=== PATIENT | female | born 1950 | race African-American/Black ===

== ENCOUNTER 2016-04-15 19:01 | Inpatient (IN) | payer OTHER ==
[~2016-04-15] VITALS: Ht 160 cm; Wt 91.2 kg
--- NOTE | ~2016-04-15 | HC ---
[facility] [place] [address] CONSULTATION Name: ALBERTO BARBOZA Room #: 241-P ADM IN M.R.#: [id number] Admission: 04/15/16 Attend Phys: Chema rAango Discharge: Date of : 54 Report #: [id number] THIS REPORT FOR: //name// CC: Ezio Arango Apolonia Nunesg DATE OF ADMISSION: 04/15/2016. DATE OF CONSULTATION: 04/16/2016 REASON FOR CONSULTATION: Elevated creatinine. HISTORY OF PRESENT ILLNESS: This is a 66-year-old female who presented to the Emergency Room last evening with bilateral lower extremity pain, worse on the left than the right. She came from a local rehab center. She tells me she was in [facility] for about 2 weeks and was just discharged about 4 days ago to that Rehab Center. While at [facility], she did have evaluation for her leg pain. She does not recall that anything was done. She is able to tell me that she was put on some medication and she ended up getting overly somnolent with the medication and took it couple of days to come out from underneath that medication. She stated it was blamed on her renal function and why that had occurred. She did not recall the name of the medication, but I suspect that it was a high dose gabapentin, although it could have been some Baclofen. She tells me she has had diabetes mellitus dating back 25 or 30 years. She also has longstanding hypertension. She says she has been seen previously by nephrologists at [facility]. She has been told she does have chronic kidney problems. She remembers being told of proteinuria for many years. She does not recall baseline creatinine levels or amount of GFR decline that she has had. She has never required dialysis. Overnight, she went to interventional radiology. CO2 arteriogram was performed showing chronic arterial disease of both lower extremities. She has been undergoing a TPA infusion overnight. Legs are still cold and painful. She is due for a followup arteriogram this morning. PAST MEDICAL HISTORY: Longstanding diabetes mellitus again dating back 25 or 30 years. With this she has some peripheral neuropathy, presumed diabetic nephropathy. She has longstanding hypertension. She has a chronic kidney disease as noted above, but again we are uncertain of the extent. She has coronary artery disease. She had a 5-vessel coronary artery bypass graft surgery in 1998. She is unaware of any percutaneous intervention on that. She has documented lower extremity arterial disease. She has a long scar in her right arm extending from the forearm all the way up the upper arm over the distribution of the cephalic vein. She thinks that the vein was taken for a bypass, although she also has scars on her left leg from what appears to be vein harvest for her coronary bypass graft surgery. I am uncertain what this right [facility] [address] [place] [address] CONSULTATION Name: ALBERTO BARBOZA Room #: 241-P ADM IN M.R.#: [id number] Admission: 04/15/16 Attend Phys: Chema Arango Discharge: Date of : 54 Report #: [id number] arm scar is. She has also had laparoscopic cholecystectomy. MEDICATIONS: From [facility], amlodipine 5 mg daily, aspirin 81 mg daily, vitamin D 1000 units daily, Pletal 50 mg b.i.d., cyproheptadine 4 mg daily, Zetia 10 mg daily, Humalog 10 units with meals, isosorbide dinitrate daily, I believe that is 60 mg, Lantus 25 units at bedtime, couple of eyedrops, metoprolol dose unknown, pantoprazole 40 mg daily, Crestor 10 mg daily, Ultram 50 mg p.r.n., Plavix 75 mg daily. ALLERGIES: No known medical allergies. FAMILY HISTORY: Negative for renal disease of which she can tell me at this time. SOCIAL HISTORY: The patient is a , has been in [facility]. She has couple of sisters here in town. REVIEW OF SYSTEMS: Currently, denies chest pain or palpitations, dyspnea, cough. She has had mild abdominal discomfort. She denies nausea or vomiting. She has been incontinent of urine. She reports no recent visual or hearing changes. She was somewhat confused and described as giving a poor history last night, but this morning she is awake and oriented. Main problem has been her lower extremity pain, which is severe and very disabling. PHYSICAL EXAMINATION: GENERAL: A 66-year-old female who looks rather elderly. She is awake and knows she is at [facility]. VITAL SIGNS: Blood pressure 155/67, heart rate 77, respiratory rate 16, temperature 97.4, oxygen saturation 99%. HEENT: Shows pupils are equal and reactive. Sclerae nonicteric. Oral mucosa is somewhat dry. NECK: Veins are not distended. Neck is supple. She has a right IJ infusion catheter in place. CHEST: Clear bilaterally. CARDIOVASCULAR: Heart has a regular rate and rhythm with somewhat distant heart tones. ABDOMEN: Mildly distended. Bowel sounds are present. It is soft. She has minimal tenderness, no point tenderness, guarding or rebound, no organomegaly or masses are palpable. EXTREMITIES: Upper extremities showed no edema. She has very lengthy scar in her right forearm and upper arm. Legs are cold to the touch from the thigh distally. Both are very tender to the touch. ABS and pedal pulses. LABORATORY DATA: Sodium 136, potassium 4.2, chloride 102, bicarbonate 23, BUN , creatinine 3.4, glucose 215, calcium 8.9, AST 60, ALT 58, total protein 7.2, albumin 1.2. White count 15.3 down from 20 on admission, hemoglobin 10.4, [facility] [address] [place] [address] CONSULTATION Name: ALBERTO BARBOZA Room #: 241-P [facility] IN M.R.#: [id number] Admission: 04/15/16 Attend Phys: Chema Arango Discharge: Date of : 54 Report #: [id number] hematocrit 31.5, platelets 492,000. Differential on the white count 88 neutrophils, 6 lymphs, 6 monocytes. Urinalysis from the Emergency Room specific gravity of 1.020, pH 7.0, 3+ protein, 2+ glucose, 2+ blood with 6-15 white cells, 3-10 red cells. ASSESSMENT: 1. Elevated creatinine consistent with chronic kidney disease stage IV, possibly stage V. She has longstanding diabetes, hypertension, and proteinuria. We will get a renal ultrasound, but I expect her kidneys, we will have some atrophic component. She still has substantial proteinuria evidenced by the protein on dipstick urine, but also by her very low serum albumin. The fact that she is known of proteinuria for many years and has seen a drafting engineer before again supports that this is chronic. We will certainly follow along, but I do not think there is an acute component to this. Certainly with that severe of a creatinine elevation, she has very small residual. I mentioned briefly dialysis today, although I do not think she needs it at this time. It may be, consideration down the line. 2. Atherosclerotic peripheral vascular disease with what was described in the radiology notes as chronic arterial occlusions. TPA infusion is ongoing. She is due for a repeat arteriogram, but based upon the appearance of her legs today including the coldness and the tenderness, I doubt that we will see dramatic improved with the TPA. This certainly looks like more chronic arterial changes. 3. Diabetes mellitus dating back 25 or 30 years, very longstanding, very severe. 4. Hypertension, recently she only on amlodipine. Blood pressure, adequate control at this time. 5. Atherosclerotic coronary artery disease with remote coronary artery bypass graft surgery. She is asymptomatic from that standpoint. 6. Anemia, likely chronic. As we go forward, we will check iron studies and erythropoietin levels. 7. Leukocytosis on admission. Better this morning. Her legs do not look infected, although certainly they are likely very ischemic. PLAN: 1. Put her on a small amount of IV fluids, normal saline. 2. Check proteinuria amounts. 3. We will try to get records from [facility]. They have already been requested, so we can see what her baseline creatinine level runs. 4. I will get a renal ultrasound to assess renal size and anatomy. 5. Repeat labs. 6. We will follow along in the care of this pleasant, but chronically ill patient. <ELECTRONICALLY SIGNED> By: José Rawls MD 04/16/16 1234 0852 1110 José Rawls MD /nt
--- NOTE | ~2016-04-15 | HC ---
[facility] [place] [address] [place] [address] CONSULTATION Name: ALBERTO BARBOZA Room #: 439-P [facility] IN M.R.#: [id number] Admission: 04/15/16 Attend Phys: Chema Arango Discharge: 04/22/16 Date of : 54 Report #: [id number] THIS REPORT FOR: //name// CC: Ezio Arango Apolonia Nunesg DATE OF SERVICE: 04/16/2016 We were asked by Dr. Ghosh to see the patient. The patient is a 66-year-old with arterial occlusive disease, left lower extremity. The patient was admitted through the Emergency Department as a transfer from the long term with cold pulseless left lower extremity. The patient had previously been an inpatient at [facility] in fact discharged only last week, because "they could not fix my leg". We have records from [facility] that shows essentially little to no flow in the distal left lower extremity from 04/01, so this indicated that the admitting problem is an acute discovery of a chronic problem. The patient has a history of pain in the left lower extremity with 5 to 6 months with increasing pain and swelling and it has become quite cold to touch. [facility] doctors were concerned about venous disease even in the face of dismal lower extremity arterial exam. PAST MEDICAL HISTORY: Significant for diabetes, chronic renal disease. The patient had coronary artery bypass by myself at [facility] years ago. MEDICATION AT HOME: Includes acetaminophen, amlodipine, aspirin, vitamin D, cilostazol, cyproheptadine, docusate, ezetimibe, insulin, isosorbide, latanoprost eye drops, lidocaine patch, methyl salicylate, metoprolol, polyethylene glycol, nitroglycerin, clopidogrel, pantoprazole, rosuvastatin, tramadol. ALLERGIES: None known. SOCIAL HISTORY: Former smoker. As mentioned, currently a resident of the long term. REVIEW OF SYSTEMS: CONSTITUTIONAL: No fever or chills. EYES: Wears glasses. No eye pain. No vision changes. HEENT: No rhinorrhea or sore throat. RESPIRATORY: No cough, no shortness of breath. CARDIOVASCULAR: No chest pain or palpitations. [facility] [address] [place] [address] CONSULTATION Name: ALBERTO BARBOZA Room #: 439-P DIS IN M.R.#: [id number] Admission: 04/15/16 Attend Phys: Chema Arango Discharge: 04/22/16 Date of : 54 Report #: [id number] GASTROINTESTINAL: No nausea, vomiting, diarrhea. GENITOURINARY: No dysuria, no blood. MUSCULOSKELETAL: Pain in the left lower extremity as mentioned. SKIN: No rash or infection. NEUROLOGIC: Sensory changes in the distal left lower extremity. Decreased motion in left lower extremity. ENDOCRINE: No hot or cold intolerance. Treated for diabetes. LYMPHATICS AND HEMATOLOGIC: No easy bruising. No anemia. PHYSICAL EXAMINATION: VITAL SIGNS: Blood pressure 155/67, heart rate 77, respiratory rate 16, temperature 36.3, O2 sat 99%. GENERAL: The patient is pleasant woman, who looks older than stated age. HEENT: Normocephalic, gaze conjugate. Pupils equal, round. No icterus, no arcus. NECK: No lymphadenopathy, no bruit. CHEST: Reveals fine crackles at the bases. HEART: Rhythm regular. No murmurs. ABDOMEN: Soft, no mass, no tenderness. SKIN: In general normal color and turgor, but skin in distal left lower extremity is dry and cold. MUSCULOSKELETAL: No bone or joint dyssymmetry or deformity. NEUROLOGIC: No motion or sensation left foot. VASCULAR: No left popliteal, dorsalis pedis or posterior tibial pulses or Doppler signals and muscle in the left calf is edematous and extremity itself is dark and cadaveric. IMPRESSION: The patient has worsening of already existing left lower extremity arterial occlusive disease. Limb salvage is not possible at this point. We note that arteriography was done earlier with thrombolytic treatment. The left deep femoral has clot and distally the left superficial femoral is totally occluded and there is really no distant runoff. No prospect for revascularization and even if this were the case would be detrimental as the extremity itself is more defying. I agree that above knee amputation would be the single most likely procedure to be successful in this patient. Thank you for consult. <ELECTRONICALLY SIGNED> By: Chicho Farley MD 04/28/16 1224 0853 1035 Chicho Farley MD /nt
--- NOTE | ~2016-04-15 | O ---
[facility] [place] [address] [place] [address] OPERATIVE REPORT Name: ALBERTO BARBOZA Room #: 439-P ADM IN M.R.#: [id number] Admission: 04/15/16 Attend Phys: Chema Arango Discharge: Date of : 54 Report #: [id number] THIS REPORT FOR: //name// CC: Ezio Arango Apolonia Cyr DATE OF SERVICE: 04/18/2016 PREOPERATIVE DIAGNOSIS: Dysvascular left lower extremity. POSTOPERATIVE DIAGNOSIS: Dysvascular left lower extremity. PROCEDURE: Left above knee amputation. SURGEON: Nestor Leal MD. BODS DEVELOPER: Amber Cleary PA-C. ANESTHESIA: LMA. TOURNIQUET TIME: 45 minutes. ESTIMATED BLOOD LOSS: 50 mL. COMPLICATIONS: None. SPECIMENS: The left lower extremity was sent to pathology. CONDITION UPON LEAVING THE OPERATING ROOM: Stable. INDICATIONS FOR PROCEDURE: The patient is a 66-year-old female who has severe left leg peripheral vascular disease. She presented to our hospital with a cold and painful limb. Attempts at revascularization were made as well as thrombolysis, which were unsuccessful. It was determined that revascularization was not possible and was in need of above-knee amputation. DESCRIPTION OF PROCEDURE: Risks, benefits, alternatives, complications were discussed in detail with the patient including but not limited to risk of anesthesia, risk of damage to nerves, arteries, blood vessels, risk for infection, bleeding, risk for continued leg pain, wound complications and need for reoperation. Informed consent was obtained from the patient. Left leg was appropriately marked in preoperative holding area. She was brought to the operating room and placed in supine position on operating room table. LMA anesthesia was induced without complication. Tourniquet was placed on the left thigh. Left lower extremity was prepped and draped in normal sterile fashion. [address] [address] OPERATIVE REPORT Name: ALBERTO BARBOZA Room #: 439-P [facility] IN M.R.#: [id number] Admission: 04/15/16 Attend Phys: Chema Arango Discharge: Date of : 54 Report #: [id number] Timeout was performed properly identifying the patient and procedure as well as the instrumentation. All in the operating room were in agreement. Left lower extremity was elevated, tourniquet was inflated, tourniquet time was 45 minutes. A fishmouth incision was then drawn on the skin and incision was made with a 10 blade through the skin. Dissection was taken down using Bovie cautery cutting through the anterior musculature. The vessels were tied off and coagulated as they were encountered. An oscillating saw was used to make a bone cut proximal to the level of the skin and muscular incision. The anterior portion of the bone was then beveled. Sciatic nerve was then dissected and cut sharply and allowed to retract to avoid neuroma formation. The amputation was completed with Bovie cautery. After this, the musculature had to be debulked in order to allow for closure of the wound. The tourniquet was deflated. Hemostasis was obtained with Bovie cautery. The muscle fascia was then tied over the stump of the femur and the skin with 2-0 Vicryl. The fascia was closed with 0 Vicryl, skin was closed with 2-0 Vicryl and skin scar. Soft dressing of Adaptic, 4 x 4, ABD, Kerlix and Mitchell wrap were applied. The patient tolerated this procedure well and went to recovery room under care of anesthesia postoperatively. <ELECTRONICALLY SIGNED> By: Nestor Leal MD 04/21/16 0939 1432 1615 Nestor Leal MD /nt
--- NOTE | ~2016-04-15 | HC ---
[facility] [address] [address] CONSULTATION Name: ALBERTO BARBOZA Room #: 439-P ADM IN M.R.#: [id number] Admission: 04/15/16 Attend Phys: Chema Arango Discharge: Date of : 54 Report #: [id number] THIS REPORT FOR: //name// CC: Ezio Arango Apolonia Cyr DATE OF SERVICE: 04/18/2016 REASON FOR CONSULTATION: Dysvascular left lower extremity. HISTORY OF PRESENT ILLNESS: The patient is a 66-year-old female who was admitted secondary to increasing pain and swelling in her left leg. This has become cold to touch. She has been worked up for this and has had several vascular studies as well as cardiovascular input. Her pain has become increasingly worse. PAST MEDICAL HISTORY: Significant for insulin-dependent diabetes, coronary artery disease, hypertension, chronic kidney disease. CURRENT MEDICATIONS: Have been reviewed and are on the chart. SOCIAL HISTORY: She does not smoke, drink or use illicit drugs. PHYSICAL EXAMINATION: GENERAL: This is a frail-appearing female in no acute distress. She is alert and oriented. EXTREMITIES: Examination of left lower extremity shows her to have a very cold foot compared to the right side. She has global tenderness to palpation in her calf, ankle and foot. She has no palpable pulses in her left lower extremity. She has significant decreased sensation to light touch in her foot and toes. IMAGING: Reports show an attempted thrombolysis of her left lower extremity, which was unsuccessful. She has thrombosis of her superficial femoral artery, popliteal artery and intercostal arteries. Her imaging also shows a nonviable foot and suggests that successful revascularization is not likely. LABORATORY DATA: Show a white count of 16.6, hemoglobin 9.9, platelet of 469. ASSESSMENT: Less dysvascular lower extremity. PLAN: Discussed with the patient options today. At this point, it appears the only treatment option is for an above-knee amputation. I have discussed this with Dr. Farley and he is in agreement with this. We will plan to do this this afternoon. She is understanding and wished to proceed. [address] [place] [address] CONSULTATION Name: ALBERTO BARBOZA Room #: 439-P ADM IN M.R.#: [id number] Admission: 04/15/16 Attend Phys: Chema Arango Discharge: Date of : 54 Report #: [id number] Thank you for allowing us to participate in the care of the patient. <ELECTRONICALLY SIGNED> By: Nestor Leal MD 04/18/16 1255 0954 1147 Nestor Leal MD /nt
--- NOTE | ~2016-04-15 | S ---
[facility] [place] [address] [place] [address] SURGICAL PATH RPT PROCEDURE Name: TYRA BARBOZA Room #: 439-P ADM IN M.R.#: [id number] Admission: 04/15/16 Date of : 54 Discharge: Report #: [id number] Path Case #: [id number] PATHOLOGY REPORT COLLECTION DATE: 04/18/2016 RECEIVED DATE: 04/18/2016 SUBMITTING PHYS: Dr. Nestor Leal OTHER PHYS: Dr. Chema Ghosh SPECIMEN(S) RECEIVED: A.Left above the knee amputated leg * * * * * * * * * * * * FINAL DIAGNOSIS: Leg, left, above knee amputation: - Ischemic skin. - Anterior tibial vessels and posterior tibial vessels showing complete luminal occlusion by thrombi and atherosclerosis. - Popliteal vasculature showing marked luminal narrowing by calcific atherosclerosis. - Skin margin viable and unremarkable. - Bone margin grossly viable. (IUV:all; d/t: 04/22/2016) PATHOLOGIST: Aparna Hatch M.D. REPORT ELECTRONICALLY SIGNED BY: Aparna Hatch M.D. DATE/TIME: 04/22/2016 15:51 * * * * * * * * * * * * GROSS PATHOLOGY: The specimen is received fresh in a red biohazard bag and labeled Tyra Barboza and left above knee amputated leg." Received is a left upper extremity specimen amputated through the femur with a smooth resection margin. The specimen measures 25.5 cm from heel to toe, 46.5 cm from heel to soft tissue resection margin, and 54.5 cm from heel to femoral bone resection margin. The skin, soft tissue, and bone resection margins are grossly viable and unremarkable. Located at the skin, soft tissue, and bone resection margin is a metallic, tubular, and coiled surgical component, suggestive of a possible stent, measuring greater than 15.0 cm in length and 0.5 cm in diameter. The possible stent extends to and grossly abuts the popliteal and posterior tibial vessels. A digital image is taken. The skin is dominguez-brown, dusky, dry, and wrinkled. There is 10.8 x 0.3 cm dominguez-brown, well healed, linear [place] [address] SURGICAL PATH RPT PROCEDURE Name: TYRA BARBOZA Room #: 439-P [facility] IN M.R.#: [id number] Admission: 04/15/16 Date of : 54 Discharge: Report #: [id number] Path Case #: [id number] aspect of calf. The anterior aspect of the right displays a 1.0 x 0.8 cm dominguez, poorly circumscribed, and partially crusted lesion. The lesion does not grossly extend to the bone. All 5 digits with thickened nails are present. The nails each display bright red nail peruvian. Sectioning of the popliteal, anterior tibial, and posterior tibial vasculature reveals patent and slightly calcified lumens, some filled with clotted blood. Production Control Planner sections are submitted as follows: A1 longitudinal section of skin and soft tissue margin (inked) A2 possible epidermal scar A3 crusted skin lesion A4 anterior tibial vasculature, following decalcification A5 popliteal vasculature, following decalcification A6 posterior tibial vasculature, following decalcification (TTL; 04/21/2016) CLINICAL HISTORY: Ischemic left leg INITIAL CPT CODE(S): A; 52959, 94717 Professional services performed by [facility] at [place] [address], [place] [address] Technical services performed by [facility] at [address] [place] [address], [address], [place] [address]. [facility] [address] [place] [address] PHONE: [phone] DIRECTOR: Dipak Asencio M.D. * * * END OF REPORT * * *
--- NOTE | ~2016-04-15 | HC ---
[facility] [place] [address] CONSULTATION Name: ALBERTO BARBOZA Room #: 439-P [facility] IN M.R.#: [id number] Admission: 04/15/16 Attend Phys: Chema Arango Discharge: 04/22/16 Date of : 54 Report #: [id number] THIS REPORT FOR: //name// CC: Ezio Arango Apolonia Cyr DATE OF SERVICE: 04/21/2016 REASON FOR CONSULTATION: Depression. HISTORY OF PRESENT ILLNESS: We were asked to see this lady with respect to concern that she had become more hopeless, helpless, and despondent. The patient was a bit surprised that I was consulted. I explained "your doctor thought that I should come and talk to you." She responded "how come he could not do it." When I explained that I was a psychiatrist and a specialist, she stated "I am depressed, I am not crazy." The patient did warm up a little bit and explained that she was not hopeless or helpless, but that the amputation was somewhat sudden. She had not realized that things have progressed this quick. She is concerned about whether she will be able to return to her previous living situation or not. However, she denies that she has given up. She essentially feels yet she is grieving the loss of a body part and handling this the way anybody would in the current situation. PAST PSYCHIATRIC HISTORY: The patient denies. PAST MEDICAL HISTORY: Recent amputation, history of leg pain with arterial occlusion. ALLERGIES: No known drug allergies. CURRENT MEDICATIONS: Include Plavix 75 daily, insulin 10 units at bedtime, lisinopril 20 daily, Protonix 40 daily, gabapentin 300 three times daily, isosorbide mononitrate 30 daily, Zetia 10 mg daily. SOCIAL HISTORY: She endorses that she has a support system and does not appear there are any active substance abuse issues. MENTAL STATUS EXAM: female, recent amputation, depressed mood, restricted affect, decreased speech. No suicidal ideation, no homicidal ideation, no hallucinations, no delusions. Insight and judgment fair. DIAGNOSES: AXIS I: Major depressive disorder, single, moderate; rule out adjustment disorder with depressed mood. AXIS II: Deferred. 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 AXIS IV: Moderate. AXIS V: 40. RECOMMENDATIONS: The patient is opposed to starting on any medication for depression at this time. She insists that she is still getting used to this situation. So I will respect her wishes and I will hold off on psychotropic medication; however, I told her that I was going to continue to follow her case and would reevaluate later this week. If the patient has been so despondent or depressed that she is not appearing to be hopeful or forward thinking and is forgoing doctor's orders, therapies, etc., then I feel we may need to start an antidepressant sooner than later. <ELECTRONICALLY SIGNED> By: Yang Crouch MD 04/29/16 1412 [id number] Yang Crouch MD /nt
[2016-04-15 19:02] VITALS: BP 134/59
[2016-04-15] MEDS ORDERED: ASPIR 8181 MG PO (19:11)
[2016-04-15] MEDS ORDERED: NORVASC5 MG PO (19:11)
[2016-04-15] MEDS ORDERED: APAP500 PO (19:11)
[2016-04-15] MEDS ORDERED: VITAMIN D1000 UNI1 (19:14)
[2016-04-15] MEDS ORDERED: CILOSTAZOL 100100 M1 (19:15)
[2016-04-15] MEDS ORDERED: ZETIA10 MG PO (19:16)
[2016-04-15] MEDS ORDERED: COLACE100 MG PO (19:16)
[2016-04-15] MEDS ORDERED: CYPROHEPTADINE 44 MG (19:16)
[2016-04-15] MEDS ORDERED: HUMALOG100 UNIT/1 SUBQ (19:17)
[2016-04-15] MEDS ORDERED: LANTUS (19:18)
[2016-04-15] MEDS ORDERED: XALATAN2.5 ML OPHTHALMIC (19:18)
[2016-04-15] MEDS ORDERED: ISOSORBIDE DINI30 MG (19:18)
[2016-04-15] MEDS ORDERED: LIDODERM 5%1 PATC1 TRANSDERM (19:19)
[2016-04-15] MEDS ORDERED: [UNRECOGNIZED DRUG - OTHER] (19:20)
[2016-04-15] MEDS ORDERED: NITROGLYCERIN0.4 MG SUBLING (19:21)
[2016-04-15] MEDS ORDERED: METOPROLOL TAR100 MG (19:21)
[2016-04-15] MEDS ORDERED: MIRALAX17 GM (19:21)
[2016-04-15] MEDS ORDERED: CRESTOR10 MG (19:22)
[2016-04-15] MEDS ORDERED: PROTONIX40 M1 PO (19:22)
[2016-04-15] MEDS ORDERED: PLAVIX 75 MG TA75 M1 PO (19:22)
[2016-04-15] MEDS ORDERED: ULTRAM 50MG TAB50 MG (19:23)
[2016-04-15 21:12] LABS: HEMATOCRIT 30.5 % (37.0-47.0); HEMOGLOBIN 10.2 gm/dL (12.0-15.0); MCH 29.5 pg (26.0-34.0); MCHC 33.4 % (28.0-37.0); MCV 88.3 fL (80.0-100.0); PLATELET COUNT 514 thou/uL (150-400); RBC 3.45 mil/uL (4.20-5.00); RDW 13.1 % (10.5-14.5)
[2016-04-15 21:13] LABS: MANUAL DIFF YES
[2016-04-15 21:21] LABS: CALCIUM 8.7 mg/dL (8.5-10.1); CREATININE 3.5 mg/dL (0.6-1.3); POTASSIUM 4.6 mmol/L (3.5-5.1)
[2016-04-15 21:24] LABS: APTT 29.3 Seconds (24.5-32.8); INR 1.1; PROTIME 11.9 Seconds (9.3-11.4)
[2016-04-15 21:29] LABS: ALBUMIN 1.2 g/dL (3.4-5.0); TOTAL BILIRUBIN 0.4 mg/dL (<0.1-1.0); TOTAL PROTEIN 7.2 g/dL (6.4-8.2)
[2016-04-15 21:31] LABS: URINE BILIRUBIN NEGATIVE (Negative); URINE BLOOD 2+ (Negative); URINE COLOR YELLOW; URINE GLUCOSE-RANDOM* 2+ (Negative); URINE KETONES NEGATIVE (Negative); URINE LEUKOCYTES-REFLEX NEGATIVE (Negative); URINE PROTEIN (DIPSTICK) 3+ (Negative)
[2016-04-15 21:34] LABS: ABSOLUTE NEUTROPHILS 17.6 thou/uL (1.4-8.2); TOTAL CELL COUNT 100
[2016-04-15 21:39] LABS: CASTS None Seen /LPF (None Seen); SQUAMOUS None Seen /LPF (0-3); TRANSITIONAL EPITHEL CELL 4-10 Moderate /LPF (None Seen); URINE WBC-REFLEX 6-15 Few /HPF (0-5)
[2016-04-15 21:40] LABS: CRYSTALS None Seen /LPF (None Seen); URINE RBC 3-10 Few /HPF (0-2)
[2016-04-15 23:08] VITALS: BP 132/75
[2016-04-16] VITALS (39 sets, daily range): BP systolic 107–183; BP diastolic 53–140
[2016-04-16 06:41] LABS: HEMATOCRIT 31.5 % (37.0-47.0); HEMOGLOBIN 10.4 gm/dL (12.0-15.0); MCH 29.4 pg (26.0-34.0); MCV 88.9 fL (80.0-100.0); RBC 3.54 mil/uL (4.20-5.00); RDW 13.2 % (10.5-14.5); WBC 15.3 thou/uL (4.0-11.0)
[2016-04-16 06:47] LABS: CALCIUM 8.9 mg/dL (8.5-10.1); CREATININE 3.4 mg/dL (0.6-1.3); POTASSIUM 4.2 mmol/L (3.5-5.1)
[2016-04-16 06:49] LABS: APTT 29.6 Seconds (24.5-32.8)
[2016-04-16 14:12] LABS: HEMATOCRIT 31.6 % (37.0-47.0); HEMOGLOBIN 10.5 gm/dL (12.0-15.0); MCH 29.6 pg (26.0-34.0); MCHC 33.3 % (28.0-37.0); RBC 3.55 mil/uL (4.20-5.00); RDW 12.9 % (10.5-14.5); WBC 15.3 thou/uL (4.0-11.0)
[2016-04-16 14:26] LABS: APTT 27.9 Seconds (24.5-32.8); FIBRINOGEN 439.7 mg/dL (210-360)
[2016-04-17] VITALS (36 sets, daily range): BP systolic 62–169; BP diastolic 30–147
[2016-04-17 03:10] LABS: GLYCOHEMOGLOBIN (HGB A1C) 9.9 % (4.8-5.6)
[2016-04-17 05:44] LABS: ABSOLUTE NEUTROPHILS 12.8 thou/uL (1.4-8.2); BASOPHILS 0.4 % (0.0-2.0); EOSINOPHILS 2.3 % (0.0-3.0); HEMATOCRIT 30.4 % (37.0-47.0); HEMOGLOBIN 9.9 gm/dL (12.0-15.0); LYMPHOCYTES 7.6 % (24.0-44.0); MCH 29.2 pg (26.0-34.0); MCHC 32.6 % (28.0-37.0); MCV 89.3 fL (80.0-100.0); MONOCYTES 6.9 % (1.0-8.0); PLATELET COUNT 476 thou/uL (150-400); POLYS 82.8 % (36.0-66.0); RDW 13.1 % (10.5-14.5); WBC 15.4 thou/uL (4.0-11.0)
[2016-04-17 05:54] LABS: CALCIUM 8.6 mg/dL (8.5-10.1); CREATININE 3.3 mg/dL (0.6-1.3); POTASSIUM 4.7 mmol/L (3.5-5.1)
[2016-04-17 06:02] LABS: MANUAL DIFF NO
[2016-04-17 07:02] LABS: ALBUMIN 1.1 g/dL (3.4-5.0); CALCIUM 8.6 mg/dL (8.5-10.1); CREATININE 3.3 mg/dL (0.6-1.3); PHOSPHORUS 4.6 mg/dL (2.5-4.9); POTASSIUM 4.8 mmol/L (3.5-5.1)
[2016-04-17 11:53] LABS: APTT 30.1 Seconds (24.5-32.8); FIBRINOGEN 439.7 mg/dL (210-360)
[2016-04-17 15:51] LABS: HEMATOCRIT 28.7 % (37.0-47.0); HEMOGLOBIN 9.4 gm/dL (12.0-15.0); MCHC 32.7 % (28.0-37.0); MCV 88.8 fL (80.0-100.0); RBC 3.23 mil/uL (4.20-5.00); RDW 12.9 % (10.5-14.5); WBC 13.8 thou/uL (4.0-11.0)
[2016-04-17 16:13] LABS: APTT 30.4 Seconds (24.5-32.8); FIBRINOGEN 439.7 mg/dL (210-360)
[2016-04-17 21:06] LABS: GLYCOHEMOGLOBIN (HGB A1C) 9.9 % (4.8-5.6)
[2016-04-18] VITALS (14 sets, daily range): BP systolic 103–174; BP diastolic 33–681
[2016-04-18 05:25] LABS: ABSOLUTE NEUTROPHILS 10.3 thou/uL (1.4-8.2); EOSINOPHILS 4.2 % (0.0-3.0); HEMATOCRIT 29.2 % (37.0-47.0); HEMOGLOBIN 9.4 gm/dL (12.0-15.0); LYMPHOCYTES 13.5 % (24.0-44.0); MCH 29.3 pg (26.0-34.0); MCHC 32.3 % (28.0-37.0); MCV 90.8 fL (80.0-100.0); MONOCYTES 7.2 % (1.0-8.0); PLATELET COUNT 443 thou/uL (150-400); POLYS 74.1 % (36.0-66.0); RBC 3.21 mil/uL (4.20-5.00); WBC 13.9 thou/uL (4.0-11.0)
[2016-04-18 05:37] LABS: MANUAL DIFF NO
[2016-04-18 05:38] LABS: CALCIUM 8.1 mg/dL (8.5-10.1); CREATININE 3.2 mg/dL (0.6-1.3); MAGNESIUM 1.7 mg/dL (1.8-2.4); POTASSIUM 4.1 mmol/L (3.5-5.1)
[2016-04-18 05:39] LABS: APTT 28.3 Seconds (24.5-32.8)
[2016-04-18 05:44] LABS: FIBRINOGEN 534.9 mg/dL (210-360)
[2016-04-18 09:49] LABS: HEMATOCRIT 30.7 % (37.0-47.0); HEMOGLOBIN 9.9 gm/dL (12.0-15.0); MCH 28.8 pg (26.0-34.0); MCHC 32.2 % (28.0-37.0); MCV 89.7 fL (80.0-100.0); RBC 3.43 mil/uL (4.20-5.00); RDW 13.2 % (10.5-14.5); WBC 16.6 thou/uL (4.0-11.0)
[2016-04-18 10:00] LABS: APTT 28.8 Seconds (24.5-32.8); FIBRINOGEN 458.6 mg/dL (210-360)
[2016-04-18 20:14] LABS: HEMATOCRIT 32.1 % (37.0-47.0); HEMOGLOBIN 10.4 gm/dL (12.0-15.0); MCH 29.4 pg (26.0-34.0); MCHC 32.3 % (28.0-37.0); RBC 3.53 mil/uL (4.20-5.00); RDW 13.2 % (10.5-14.5); WBC 19.1 thou/uL (4.0-11.0)
[2016-04-18 20:47] LABS: APTT 29.4 Seconds (24.5-32.8); FIBRINOGEN 422.1 mg/dL (210-360)
[2016-04-19 05:22] LABS: HEMATOCRIT 31.5 % (37.0-47.0); HEMOGLOBIN 10.3 gm/dL (12.0-15.0); MCH 29.2 pg (26.0-34.0); MCHC 32.9 % (28.0-37.0); PLATELET COUNT 513 thou/uL (150-400); RBC 3.54 mil/uL (4.20-5.00); RDW 13.1 % (10.5-14.5); WBC 17.1 thou/uL (4.0-11.0)
[2016-04-19 05:27] LABS: MANUAL DIFF YES
[2016-04-19 05:40] LABS: CALCIUM 8.1 mg/dL (8.5-10.1); CREATININE 2.7 mg/dL (0.6-1.3); MAGNESIUM 1.6 mg/dL (1.8-2.4)
[2016-04-19 07:29] VITALS: BP 150/57
[2016-04-19 08:50] LABS: ABSOLUTE NEUTROPHILS 15.6 thou/uL (1.4-8.2); TOTAL CELL COUNT 100
[2016-04-19 11:44] VITALS: BP 164/71
[2016-04-19 16:00] VITALS: BP 147/80
[2016-04-19 19:54] VITALS: BP 168/69
[2016-04-20 03:20] VITALS: BP 174/70
[2016-04-20 06:46] LABS: HEMATOCRIT 28.7 % (37.0-47.0); HEMOGLOBIN 9.5 gm/dL (12.0-15.0); MCH 29.5 pg (26.0-34.0); MCV 89.2 fL (80.0-100.0); RBC 3.22 mil/uL (4.20-5.00); RDW 13.3 % (10.5-14.5); WBC 15.9 thou/uL (4.0-11.0)
[2016-04-20 07:00] LABS: ALBUMIN 1.1 g/dL (3.4-5.0); CALCIUM 7.8 mg/dL (8.5-10.1); CREATININE 2.3 mg/dL (0.6-1.3); PHOSPHORUS 2.8 mg/dL (2.5-4.9); POTASSIUM 3.3 mmol/L (3.5-5.1)
[2016-04-20 09:18] VITALS: BP 167/76
[2016-04-20 13:04] VITALS: BP 130/99
[2016-04-20 17:01] VITALS: BP 161/75
[2016-04-20 20:05] VITALS: BP 142/58
[2016-04-21 04:50] VITALS: BP 140/59
[2016-04-21 06:40] LABS: ABSOLUTE NEUTROPHILS 9.9 thou/uL (1.4-8.2); BASOPHILS 0.8 % (0.0-2.0); EOSINOPHILS 3.4 % (0.0-3.0); HEMATOCRIT 27.9 % (37.0-47.0); HEMOGLOBIN 8.9 gm/dL (12.0-15.0); LYMPHOCYTES 13.5 % (24.0-44.0); MCH 29.2 pg (26.0-34.0); MCHC 31.9 % (28.0-37.0); MCV 91.7 fL (80.0-100.0); MONOCYTES 8.4 % (1.0-8.0); POLYS 73.9 % (36.0-66.0); RBC 3.04 mil/uL (4.20-5.00); RDW 13.2 % (10.5-14.5); WBC 13.3 thou/uL (4.0-11.0)
[2016-04-21 06:42] LABS: MANUAL DIFF NO; PLATELET COUNT 349 thou/uL (150-400)
[2016-04-21 06:53] LABS: ALBUMIN 1.1 g/dL (3.4-5.0); CALCIUM 7.6 mg/dL (8.5-10.1); CREATININE 2.3 mg/dL (0.6-1.3); PHOSPHORUS 2.5 mg/dL (2.5-4.9); POTASSIUM 3.5 mmol/L (3.5-5.1)
[2016-04-21 08:00] VITALS: BP 162/80
[2016-04-21 16:00] VITALS: BP 117/45
[2016-04-21 20:35] VITALS: BP 124/81
[2016-04-22 03:30] VITALS: BP 135/62
[2016-04-22 05:54] LABS: HEMATOCRIT 28.3 % (37.0-47.0); MCHC 31.9 % (28.0-37.0); MCV 90.8 fL (80.0-100.0); RBC 3.12 mil/uL (4.20-5.00); RDW 13.4 % (10.5-14.5); WBC 12.8 thou/uL (4.0-11.0)
[2016-04-22 06:27] LABS: ALBUMIN 1.1 g/dL (3.4-5.0); CALCIUM 7.7 mg/dL (8.5-10.1); CREATININE 2.1 mg/dL (0.6-1.3); PHOSPHORUS 2.7 mg/dL (2.5-4.9); POTASSIUM 3.7 mmol/L (3.5-5.1)
[2016-04-22 08:00] VITALS: BP 154/65
[2016-04-22 12:00] VITALS: BP 116/53
[2016-04-22] MEDS ORDERED: HYDROCODONE-AP1 EAC6 PO (12:44)
[2016-04-22 16:00] VITALS: BP 129/53
[2016-04-22] MEDS ORDERED: CELEXA20 MG PO (16:38)
[2016-05-09] MEDS ORDERED: CLEOCIN HCL150 MG PO (15:20)
== END 2016-04-22 19:30 | DRG 239 ==
LOC: ER 19:01 → ICU 21:57 → EROBS 21:57 → 4S 21:57 → ICU 23:08 → 4S 04-18 10:13
PROVIDERS: Emergency Medicine; Family Medicine; Internal Medicine; Internal Medicine Nephrology; Orthopaedic Surgery; Radiology Vascular & Interventional Radiology
PROC: 02HV33Z Insertion of Infusion Device into Superior Vena Cava, Percutaneous Approach (ICD-10-PCS; 2016-04-15)
PROC: B5181ZA Fluoroscopy of Superior Vena Cava using Low Osmolar Contrast, Guidance (ICD-10-PCS; 2016-04-15)
PROC: B41GZZZ Fluoroscopy of Left Lower Extremity Arteries (ICD-10-PCS; principal; 2016-04-16)
PROC: 0Y6D0Z3 Detachment at Left Upper Leg, Low, Open Approach (ICD-10-PCS; principal; 2016-04-16)
DX: I74.8 Embolism and thrombosis of other arteries (principal); E43 Unspecified severe protein-calorie malnutrition; N17.9 Acute kidney failure, unspecified; N18.4 Chronic kidney disease, stage 4 (severe); F32.9 Major depressive disorder, single episode, unspecified; M62.262 Nontraumatic ischemic infarction of muscle, left lower leg; I77.1 Stricture of artery; E11.22 Type 2 diabetes mellitus with diabetic chronic kidney disease; K59.00 Constipation, unspecified; I12.9 Hypertensive chronic kidney disease with stage 1 through stage 4 chronic kidney disease, or unspecified chronic kidney disease; I25.10 Atherosclerotic heart disease of native coronary artery without angina pectoris; H40.9 Unspecified glaucoma; E11.40 Type 2 diabetes mellitus with diabetic neuropathy, unspecified; E11.51 Type 2 diabetes mellitus with diabetic peripheral angiopathy without gangrene; D64.9 Anemia, unspecified; D72.829 Elevated white blood cell count, unspecified; Z95.1 Presence of aortocoronary bypass graft; Z79.899 Other long term (current) drug therapy; Z79.4 Long term (current) use of insulin; Z28.21 Immunization not carried out because of patient refusal
CPT/HCPCS: 10078; 10100; 50010; 50101; 50386; 51412; 53000; 56524; 56528; 57091; 62110; 62900; 70005

== ENCOUNTER 2016-08-08 11:02 | Inpatient (IN) | payer OTHER ==
[~2016-08-08] VITALS: Ht 160 cm; Wt 94.8 kg
--- NOTE | ~2016-08-08 | HC ---
[facility] [place] [address] CONSULTATION Name: ALBERTO BARBOZA Room #: 456-P ADM IN M.R.#: [id number] Admission: 08/08/16 Attend Phys: Armando Alcantar MD Discharge: Date of : 54 Report #: [id number] THIS REPORT FOR: //name// CC: Armando Alcantar [facility] REASON FOR CONSULTATION: CHF. HISTORY OF PRESENT ILLNESS: The patient is a 66-year-old with known coronary artery disease status post CABG by Dr. Garcia at [facility] who also has a history of peripheral vascular disease, status post left lower extremity amputation this past April. She also has diabetes, chronic renal insufficiency. She lives in a care facility. She reports that yesterday, she started noticing some sore throat. She also started noticing some new onset exertional dyspnea as well as some PND and orthopnea. She reports that this morning, she woke up and she felt slightly worse. She reports that she had a subjective fever. REVIEW OF SYSTEMS: CONSTITUTIONAL: In general, she reports subjective fever yesterday. HEENT: Some sore throat yesterday. CARDIOVASCULAR: As above. PULMONARY: She reports some productive cough. GASTROINTESTINAL: No nausea or vomiting. GENITOURINARY: No dysuria. MUSCULOSKELETAL: No myalgias or arthralgias. ENDOCRINE: No heat or cold intolerance. NEUROLOGIC: No focal weakness. PAST MEDICAL HISTORY: See my HPI. SOCIAL HISTORY: She is a shelter resident. FAMILY HISTORY: Noncontributory. ALLERGIES: No known drug allergies. MEDICATIONS: Include hydrocodone, Celexa, aspirin 81, Zetia, insulin, isosorbide dinitrate eyedrops, lidocaine patch, nitroglycerin p.r.n., Plavix 75, pantoprazole, and rosuvastatin. PHYSICAL EXAMINATION: VITAL SIGNS: Temperature is 37.7, pulse 71, respiration 19, blood pressure 144/60, sats are 94%. GENERAL: She is in no acute distress, alert and oriented times 3. HEENT: Oropharynx is clear. Her sclerae are anicteric. NECK: Supple, with no thyromegaly or carotid bruits. [facility] [address] [place] [address] CONSULTATION Name: ALBERTO BARBOZA Room #: 456-P [facility] IN M.R.#: [id number] Admission: 08/08/16 Attend Phys: Armando Alcantar MD Discharge: Date of : 54 Report #: [id number] HEART: Regular rate and rhythm with normal S1 and S2. No audible murmurs. She has mildly increased jugular venous pressure and a positive hepatojugular reflux. LUNGS: Clear bilaterally. ABDOMEN: Obese but nontender. No rebound. EXTREMITIES: Her right lower extremity has trace to 1+ lower extremity edema. The left extremity is amputated. The stump looks nicely healed. NEUROLOGIC: Cranial nerves 2-12 are grossly intact. LABORATORY DATA: PH 7.3, pCO2 of 44, pCO2 of 63. White count 9.4, hemoglobin 10.8, platelets 292. Potassium 4.2, creatinine 2.4. Troponin negative. BNP 5981. DIAGNOSTIC DATA: Her chest x-ray, I personally visualized, shows an enlarged cardiac silhouette with some cephalization and mild pulmonary edema. Her 12-lead EKG shows a normal sinus rhythm with no ischemic changes. Preliminarily, the patient's echocardiogram was being performed while I was in the room. EF looks to be around 50%. There are no significant valvular abnormalities. PA pressures are in the 50s. 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 She also has a component of some [id number] pulmonary hypertension. In terms of managing her cardiac issues, I recommended that we perform IV diuresis. We can continue with diuretics at 80 mg q.12 for a day or two to see if this helps with her symptoms. She does not qualify for an KIRSTEN or ARB due to her chronic renal insufficiency. We will attempt to add a beta lizeth as tolerated. We will continue to follow. By: 1520 01 Higinio Brian MD /nt
--- NOTE | ~2016-08-08 | 2DMMODE ---
[facility] [employer] [place] [address] 2 D/M-MODE ECHOCARDIOGRAM Name: ALBERTO BARBOZA Room #: 456-P [facility] IN .R.#: [id number] Admission: 08/08/16 Attend Phys: Armando Alcantar, Discharge: Date of : 54 Date of Service: 08/09/16 1117 Report #: [id number] THIS REPORT FOR: //name// APPROVED REPORT Study performed: 08/08/2016 13:25:27 EXAM: Comprehensive 2D, Doppler, and color-flow Echocardiogram Patient Location: ER Blood Pressure: 144/60 mmHg HR: 76 bpm Rhythm: PVC's Other Information Study Quality: Fair Technically limited study due to obesity and limited mobility. Indications Hypoxia, CHF. Hx: CABG, stents, HTN, DM 2D Dimensions RVDd: 35.43 mm LVEF(%): 39.54 (>50%) IVSd: 15.50 (7-11mm) LVOT Diam: 22.29 (18-24mm) LVDd: 53.93 mm PWd: 9.64 (7-11mm) Ascending Ao: 33.81 (22-36mm) LVDs: 43.46 (25-40mm) Aortic Root: 33.87 mm Moyer's LVEF: 39.54 % Volumes Left Atrial Volume (Systole) Single Plane 4CH: 62.07 mL Single Plane 2CH: 73.15 mL LA ESV Index: 36.00 mL/m2 Aortic Valve AoV Peak Carlos.: 1.70 m/s AO Peak Gr.: 11.59 mmHg LVOT Max P.89 mmHg LVOT Max V: 1.11 m/s ARISTIDES Vmax: 2.53 cm2 Mitral Valve [facility] [address] [address] 2 D/M-MODE ECHOCARDIOGRAM Name: JABARIOAKLAND Room #: 456-[facility] IN M.R.#: [id number] Admission: 08/08/16 Attend Phys: Armando Alcantar, Discharge: Date of : 54 Date of Service: 08/09/16 1117 Report #: [id number] E/A Ratio: 1.9 MV Decel. Time: 142.59 ms MV E Max Carlos.: 1.37 m/s MV A Carlos.: 0.71 m/s MV PHT: 41.35 ms IVRT: 72.66 ms Pulmonary Valve PV Peak Carlos.: 0.96 m/s PV Peak Gr.: 3.71 mmHg Tricuspid Valve TR Peak Carlos.: 3.18 m/s RAP Estimate: 10.00 mmHg TR Peak Gr.: 40.48 mmHg RVSP: 50.00 mmHg Left Ventricle The left ventricle is normal size. Hypokinesis invovling the base of the inferior and inferolateral west Mild concentric left ventricular hypertrophy. Left ventricular systolic function is mildly decreased. LVEF is 45-50%. Right Ventricle The right ventricle is normal size. The right ventricular systolic function is normal. Atria Left atrium is dilated. The right atrium size is normal. Aortic Valve Aortic valve is calcified. Trace to mild aortic regurgitation. There is no aortic valvular stenosis. Mitral Valve Mild mitral annular calcification Mild mitral regurgitation. No evidence of mitral valve stenosis. Tricuspid Valve The tricuspid valve is normal in structure. There is mild tricuspid regurgitation. The right atrial pressure is estimated at 10 mmHg. There is moderate pulmonary hypertension estimated PAP is 50mmHg. Pulmonic Valve Pulmonic valve is not well visualized. Trace to mild pulmonic regurgitation. [employer] [facility] [address] [place] [address] 2 D/M-MODE ECHOCARDIOGRAM Name: ALBERTO BARBOZA Room #: 456-P [facility] IN M.R.#: [id number] Admission: 08/08/16 Attend Phys: Armando Alcantar, Discharge: Date of : 54 Date of Service: 08/09/16 1117 Report #: [id number] The aortic root is normal in size. The ascending aorta is normal in size. IVC is normal in size and collapses <50% with inspiration. Pericardium There is no pericardial effusion. <Conclusion> Left ventricular systolic function is mildly decreased. Possible hypokinesis invovling the base of the inferior and inferolateral west LVEF 45-50%. Aortic valve is calcified. Trace to mild aortic regurgitation, no aortic valvular stenosis. Mild mitral annular calcification Mild mitral regurgitation. There is moderate pulmonary hypertension estimated PAP is 50mmHg. There is no pericardial effusion. <ELECTRONICALLY SIGNED> By: Ethan Huerta MD, [facility] 08/09/16 1117 1117 111 Ethan Huerta MD, FAC /INF
--- NOTE | ~2016-08-08 | EKG ---
[place] [address] [facility] [place] [address] ELECTROCARDIOGRAM REPORT Name: ALBERTO BARBOZA Room #: [facility].R.#: [id number] Admission: Attend Phys: Discharge: Date of : 54 Report #: [id number] THIS REPORT FOR: //name// [facility] ED Test Date: 2016-08-08 Test Time: 11:17:24 Pat Name: ALBERTO BARBOZA Department: Room: Gender: F Gaming Table Operator: MZOOSalud : 1950 Requested By: Krysta Lundy Order Number: [id number] MD: Higinio Brian Measurements Intervals [place] Rate: 74 P: 51 WI: 165 QRS: -33 QRSD: 102 T: 150 QT: 426 QTc: 473 Interpretive Statements Sinus rhythm Ventricular premature complex Abnormal R-wave progression, late transition LVH with secondary repolarization abnormality No previous ECG available for comparison Electronically Signed On 08-08-2016 12:18:14 CDT by Higinio Brian [email or web address] <ELECTRONICALLY SIGNED> By: Higinio Brian MD 08/08/16 1218 1117 1117 MD JORDANA Nunez
[~2016-08-08 11:02] MED LIST: APAP500 PO; ASPIR 8181 MG PO; CELEXA20 MG PO; CILOSTAZOL 100100 M1; CLEOCIN HCL150 MG PO; COLACE100 MG PO; CRESTOR10 MG; CYPROHEPTADINE 44 MG; HUMALOG100 UNIT/1 SUBQ; HYDROCODONE-AP1 EAC6 PO; ISOSORBIDE DINI30 MG; LANTUS; LIDODERM 5%1 PATC1 TRANSDERM; METOPROLOL TAR100 MG; MIRALAX17 GM; NITROGLYCERIN0.4 MG SUBLING; NORVASC5 MG PO; PLAVIX 75 MG TA75 M1 PO; PROTONIX40 M1 PO; ULTRAM 50MG TAB50 MG; VITAMIN D1000 UNI1; XALATAN2.5 ML OPHTHALMIC; ZETIA10 MG PO; [UNRECOGNIZED DRUG - OTHER]
[2016-08-08 11:03] VITALS: BP 122/65
[2016-08-08 12:11] LABS: BASOPHILS 0.6 % (0.0-2.0); EOSINOPHILS 4.4 % (0.0-3.0); HEMATOCRIT 32.4 % (37.0-47.0); HEMOGLOBIN 10.8 gm/dL (12.0-15.0); LYMPHOCYTES 15.2 % (24.0-44.0); MCH 29.7 pg (26.0-34.0); MCHC 33.3 g/dL (28.0-37.0); MONOCYTES 5.3 % (1.0-8.0); PLATELET COUNT 292 thou/uL (150-400); POLYS 74.5 % (36.0-66.0); RBC 3.64 mil/uL (4.20-5.00); RDW 14.7 % (10.5-14.5); WBC 9.4 thou/uL (4.0-11.0)
[2016-08-08 12:12] LABS: MANUAL DIFF NO
[2016-08-08 12:19] LABS: ANION GAP 9 mmol/L (7-16); BUN 36 mg/dL (7-18); CHLORIDE 107 mmol/L (98-107); CO2 25 mmol/L (21-32); CREATININE 2.4 mg/dL (0.6-1.0); GLUCOSE 221 mg/dL (74-106); POTASSIUM 4.2 mmol/L (3.5-5.1); SODIUM 141 mmol/L (136-145)
[2016-08-08 12:30] LABS: ALBUMIN 2.3 g/dL (3.4-5.0); ALKALINE PHOSPHATASE 149 U/L (46-116); NT-PRO BRAIN NAT PEPTIDE 5981 pg/mL (<300); SGOT 17 U/L (15-37); SGPT 25 U/L (30-65); TOTAL BILIRUBIN 0.2 mg/dL (<0.1-1.0); TOTAL PROTEIN 6.8 g/dL (6.4-8.2); TROPONIN-I < 0.04 ng/mL (<0.04-0.07)
[2016-08-08 13:39] LABS: ABG SAMPLE TYPE ARTERIAL; BE(vivo) 1.6 mmol/L (-2 to +3); HCO3 26.8 mmol/L (22.0-26.0); LACTATE 0.79 mmol/L (0.5-2.0); PCO2 44.9 mmHg (35.0-45.0); PO2 63.1 mmHg (80.0-100.0); pH 7.394 (7.360-7.450); sO2 91.9 % (92.0-98.0); tCO2 28.2 mmol/L (24.0-30.0)
[2016-08-08 13:40] LABS: STICK SITE R.RADIAL
[2016-08-08 16:15] VITALS: BP 136/70; BP 182/88
[2016-08-08 20:42] VITALS: BP 158/80
[2016-08-08 23:53] VITALS: BP 132/55
[2016-08-09 04:01] VITALS: BP 138/66
[2016-08-09 07:44] VITALS: BP 138/40
[2016-08-09 11:40] VITALS: BP 129/64
[2016-08-09 14:22] LABS: HEMATOCRIT 32.2 % (37.0-47.0); HEMOGLOBIN 10.6 gm/dL (12.0-15.0); MCH 29.1 pg (26.0-34.0); MCV 88.3 fL (80.0-100.0); RBC 3.65 mil/uL (4.20-5.00); RDW 14.8 % (10.5-14.5)
[2016-08-09 14:32] LABS: CALCIUM 8.1 mg/dL (8.5-10.1); CREATININE 2.7 mg/dL (0.6-1.0); POTASSIUM 3.8 mmol/L (3.5-5.1)
[2016-08-09 16:32] VITALS: BP 132/70
[2016-08-09 19:28] VITALS: BP 121/57
[2016-08-10 03:44] VITALS: BP 135/63
[2016-08-10 07:10] VITALS: BP 145/66
[2016-08-10 11:30] VITALS: BP 135/74
[2016-08-10 16:23] VITALS: BP 127/60
[2016-08-10 19:47] VITALS: BP 134/53
[2016-08-11 04:35] VITALS: BP 152/53
[2016-08-11 07:31] VITALS: BP 155/52
[2016-08-11 11:05] VITALS: BP 145/55
[2016-08-11 15:19] VITALS: BP 149/68
[2016-08-11 19:50] VITALS: BP 139/58
[2016-08-12 04:00] VITALS: BP 148/64
[2016-08-12 08:11] VITALS: BP 161/71
[2016-08-12 12:49] VITALS: BP 150/76
[2016-08-12] MEDS ORDERED: METOPROLOL SUCC50 MG PO (15:49)
== END 2016-08-12 16:25 | DRG 682 ==
LOC: ER 11:02 → EROBS 14:07 → 4W 14:07
PROVIDERS: Internal Medicine; Physician Assistant
DX: N17.9 Acute kidney failure, unspecified (principal); I50.41 Acute combined systolic (congestive) and diastolic (congestive) heart failure; E43 Unspecified severe protein-calorie malnutrition; I13.0 Hypertensive heart and chronic kidney disease with heart failure and stage 1 through stage 4 chronic kidney disease, or unspecified chronic kidney disease; K59.00 Constipation, unspecified; K21.9 Gastro-esophageal reflux disease without esophagitis; F32.9 Major depressive disorder, single episode, unspecified; I25.10 Atherosclerotic heart disease of native coronary artery without angina pectoris; H40.9 Unspecified glaucoma; E11.51 Type 2 diabetes mellitus with diabetic peripheral angiopathy without gangrene; I27.2 Other secondary pulmonary hypertension; R09.02 Hypoxemia; J20.8 Acute bronchitis due to other specified organisms; E11.22 Type 2 diabetes mellitus with diabetic chronic kidney disease; N18.9 Chronic kidney disease, unspecified; Z95.1 Presence of aortocoronary bypass graft; Z95.5 Presence of coronary angioplasty implant and graft; Z87.891 Personal history of nicotine dependence; Z79.82 Long term (current) use of aspirin; Z79.899 Other long term (current) drug therapy
CPT/HCPCS: 10045

== ENCOUNTER → 2018-02-16 | Outpatient (CLI) | payer OTHER ==
[~2018-02-16] MED LIST changes: +ATORVASTATIN CA40 MG PO; +CALCITRIOL0.25 MCG PO; +CILOSTAZOL 100100 M1 PO; +CRESTOR40 MG PO; +DEMADEX 2020 MG/1 TA PO; +ISORDIL10 MG PO; +LOPRESSOR100 M1 PO; +METOLAZONE 5 MG5 MG PO; +METOPROLOL SUCC50 MG PO; +NORVASC2.5 MG PO
== END ==
LOC: HYPER 02-09 14:50
DX: E11.622 Type 2 diabetes mellitus with other skin ulcer (principal); I70.238 Atherosclerosis of native arteries of right leg with ulceration of other part of lower leg; L97.812 Non-pressure chronic ulcer of other part of right lower leg with fat layer exposed; E11.51 Type 2 diabetes mellitus with diabetic peripheral angiopathy without gangrene; E11.22 Type 2 diabetes mellitus with diabetic chronic kidney disease; I13.2 Hypertensive heart and chronic kidney disease with heart failure and with stage 5 chronic kidney disease, or end stage renal disease; N18.6 End stage renal disease; I50.9 Heart failure, unspecified; E83.39 Other disorders of phosphorus metabolism; E46 Unspecified protein-calorie malnutrition; E78.5 Hyperlipidemia, unspecified; D63.1 Anemia in chronic kidney disease; I25.10 Atherosclerotic heart disease of native coronary artery without angina pectoris; N25.81 Secondary hyperparathyroidism of renal origin; N25.0 Renal osteodystrophy; Z87.891 Personal history of nicotine dependence; Z95.5 Presence of coronary angioplasty implant and graft; Z89.612 Acquired absence of left leg above knee; Z99.2 Dependence on renal dialysis

== ENCOUNTER → 2018-02-23 | Outpatient (CLI) | payer OTHER | LOC: HYPER 07:20 | DX: E11.622 Type 2 diabetes mellitus with other skin ulcer (principal); I70.238 Atherosclerosis of native arteries of right leg with ulceration of other part of lower leg; L97.811 Non-pressure chronic ulcer of other part of right lower leg limited to breakdown of skin; E11.22 Type 2 diabetes mellitus with diabetic chronic kidney disease; I13.2 Hypertensive heart and chronic kidney disease with heart failure and with stage 5 chronic kidney disease, or end stage renal disease; N18.6 End stage renal disease; I50.9 Heart failure, unspecified; D63.1 Anemia in chronic kidney disease; E83.39 Other disorders of phosphorus metabolism; E46 Unspecified protein-calorie malnutrition; E78.5 Hyperlipidemia, unspecified; I25.10 Atherosclerotic heart disease of native coronary artery without angina pectoris; N25.81 Secondary hyperparathyroidism of renal origin; N25.0 Renal osteodystrophy; Z99.2 Dependence on renal dialysis; Z87.891 Personal history of nicotine dependence; Z95.5 Presence of coronary angioplasty implant and graft; Z89.612 Acquired absence of left leg above knee ==

== ENCOUNTER → 2018-03-23 | Outpatient (CLI) | payer OTHER | LOC: HYPER 03-09 10:56 | DX: E11.622 Type 2 diabetes mellitus with other skin ulcer (principal); I70.238 Atherosclerosis of native arteries of right leg with ulceration of other part of lower leg; L97.811 Non-pressure chronic ulcer of other part of right lower leg limited to breakdown of skin; E11.22 Type 2 diabetes mellitus with diabetic chronic kidney disease; I13.0 Hypertensive heart and chronic kidney disease with heart failure and stage 1 through stage 4 chronic kidney disease, or unspecified chronic kidney disease; N18.6 End stage renal disease; I50.9 Heart failure, unspecified; D63.1 Anemia in chronic kidney disease; E83.39 Other disorders of phosphorus metabolism; I25.10 Atherosclerotic heart disease of native coronary artery without angina pectoris; E46 Unspecified protein-calorie malnutrition; N25.81 Secondary hyperparathyroidism of renal origin; N25.0 Renal osteodystrophy; D50.9 Iron deficiency anemia, unspecified; E78.5 Hyperlipidemia, unspecified; Z89.619 Acquired absence of unspecified leg above knee; Z99.2 Dependence on renal dialysis ==

== ENCOUNTER 2018-04-24 21:28 | Emergency (ER) | payer OTHER ==
[~2018-04-24] VITALS: Ht 160 cm; Wt 90.7 kg
[2018-04-24 22:34] LABS: ABSOLUTE NEUTROPHILS 4.9 thou/uL (1.4-8.2); EOSINOPHILS 4.7 % (0.0-3.0); HEMATOCRIT 37.7 % (37.0-47.0); HEMOGLOBIN 12.6 gm/dL (12.0-15.0); LYMPHOCYTES 17.5 % (24.0-44.0); MCH 30.2 pg (26.0-34.0); MCHC 33.4 g/dL (28.0-37.0); MCV 90.3 fL (80.0-100.0); PLATELET COUNT 241 thou/uL (150-400); POLYS 69.8 % (36.0-66.0); RBC 4.18 mil/uL (4.20-5.00)
[2018-04-24 22:49] LABS: CALCIUM 8.4 mg/dL (8.5-10.1); CREATININE 4.9 mg/dL (0.6-1.0); POTASSIUM 4.5 mmol/L (3.5-5.1); PROTIME 10.7 Seconds (9.3-11.4)
[2018-04-24 23:59] VITALS: BP 165/77
== END 2018-04-25 | disposition home or self-care (01) ==
LOC: ER 21:28
PROVIDERS: Student in an Organized Health Care Education/Training Program
DX: T83.028A Displacement of other urinary catheter, initial encounter (principal); E11.9 Type 2 diabetes mellitus without complications; E11.22 Type 2 diabetes mellitus with diabetic chronic kidney disease; N18.6 End stage renal disease; Z99.2 Dependence on renal dialysis

== ENCOUNTER 2018-06-22 22:42 | Inpatient (IN) | payer OTHER ==
[~2018-06-22] VITALS: Ht 157.5 cm; Wt 42.9 kg
[2018-06-22 22:44] VITALS: BP 168/64
[2018-06-22] MEDS ORDERED: LANTUS100 UNIT/M SUBQ ×2 (23:13→23:15)
[2018-06-22 23:15] LABS: ANION GAP 12 mmol/L (7-16); BUN 42 mg/dL (7-18); CALCIUM 8.3 mg/dL (8.5-10.1); CHLORIDE 95 mmol/L (98-107); CO2 27 mmol/L (21-32); CREATININE 5.6 mg/dL (0.6-1.0); GLUCOSE 415 mg/dL (74-106); SODIUM 134 mmol/L (136-145)
[2018-06-22 23:24] LABS: ALBUMIN 2.9 g/dL (3.4-5.0); SGOT 19 U/L (15-37); SGPT 20 U/L (30-65); TOTAL BILIRUBIN 0.2 mg/dL (<0.1-1.0); TOTAL PROTEIN 7.8 g/dL (6.4-8.2); TROPONIN-I <0.06 ng/mL (<0.06)
[2018-06-22 23:38] LABS: BASOPHILS 0.8 % (0.0-2.0); EOSINOPHILS 3.6 % (0.0-3.0); HEMATOCRIT 36.9 % (37.0-47.0); HEMOGLOBIN 12.6 gm/dL (12.0-15.0); LYMPHOCYTES 12.6 % (24.0-44.0); MCH 30.8 pg (26.0-34.0); MCHC 34.2 g/dL (28.0-37.0); MCV 90.2 fL (80.0-100.0); MONOCYTES 8.3 % (1.0-8.0); PLATELET COUNT 254 thou/uL (150-400); POLYS 74.7 % (36.0-66.0); RBC 4.09 mil/uL (4.20-5.00); RDW 15.8 % (10.5-14.5); WBC 9.3 thou/uL (4.0-11.0)
[2018-06-23] VITALS (7 sets, daily range): BP systolic 111–180; BP diastolic 50–85
--- NOTE | 2018-06-23 03:02 | NUR ---
PT ADMITED TO FLOOR FROM ER AROUND 0130. VSS. ASSESSMENT CHARTED. PT DENIES CP, N/V, DIZZINESS, OR OTHER CONCERNS. BOATHOUSE KEEPER AT BEDSIDE, ELEVATED BS ORDERS GIVEN INSULIN PER EMAR. LEFT LEG AMPUTE, TURNS SELF. ROOM AIR, STATS WNL. DIALYSIS MWF, PT STATED HAD DIALYSIS THURSDAY. PLAN FOR LABS THIS AM, WILL CONTINUE TO MONITOR AND WITH POC. ADMIT COMPLETE.
[2018-06-23 05:23] LABS: CHOLESTEROL 163 mg/dL (<200); HDL CHOLESTEROL 46 mg/dL (>40); LDL CHOLESTEROL 94 mg/dL (<100); TC:HDL 3.5 Ratio (Not establshd); TRIGLYCERIDE 116 mg/dL (<150); TROPONIN-I <0.06 ng/mL (<0.06); VLDL 23 mg/dL (<40)
[2018-06-23 05:47] LABS: SERUM ASSESSMENT Clear
--- NOTE | 2018-06-23 12:30 | NUR ---
"INITIAL ASSESSMENT: ALIS reviewed chart and spoke with nursing and attending physician. Pt was admitted from home due to chest pain. ALIS met with pt at bedside. Introduced role of SW. Pt is alert/orientated x 4. Pt reports she lives at home alone. Prior to admission pt was able to manage her care at home. Pt with hx of left AKA. Pt is w/c bound. Pt has had a prosthesis in the past, but does not use it. Pt states she has in-home care provided through [facility] on a daily basis. Pt goes to outpatient dialysis at [facility] at 1130. Pt has transportation through [employer]. Pt states she feels that she needs to go to post-acute placement after discharge for rehab. Pt has been to [facility] in the past and is agreeable to going to [facility] again. ALIS updated attending physician. PT/OT ordered today. personal financial planner to fax referral. will need insurance authorization for skilled placement. ALIS updated pt's sister, Coco, via phone. ALIS is following to assist as needed with discharge planning."
--- NOTE | 2018-06-23 16:42 | NUR ---
DISCHARGE PLANNING. ANTICIPATED DISCHARGE PLANNED FOR TOMORROW. POST ACUTE CARE RECOMMENDED AT DISCHARGE. PATIENT REQUESTING REFERRAL FAXED TO [facility]. HAS BEEN TO [facility] IN THE PAST. REFERRAL FAXED TO [facility], [facility], FOR INSURANCE AUTH PROCESS. [facility] AWARE OF REFERRAL AND PATIENTS DISCHARGE NEEDS. WILL NOTIFY CM ONCE INSURANCE AUTH OBTAINED. UNIT CM/SW AWARE.
--- NOTE | 2018-06-23 17:12 | EKG ---
[place] [address] [facility] [place] [address] ELECTROCARDIOGRAM REPORT Name: ALBERTO BARBOZA Room #: 206-P ADM IN M.R.#: [id number] ������������������ Admission: 06/23/18 ������������������ Attend Phys: Armando Alcantar MD Discharge: ������������������ Date of : 54 Report #: [id number] ����������������������������������������������������������������� [id number] THIS REPORT FOR: //name// [facility] ED Test Date: 2018-06-22 Test Time: 22:46:50 Pat Name: ALBERTO BARBOZA Department: Room: 206 Gender: F Medical Asst: KKBUDDY : 1950 Requested By: Merry Flynn Order Number: [id number] MD: Ethan Huerta Measurements Intervals [place] Rate: 87 P: 52 PA: 178 QRS: -32 QRSD: 118 T: 152 QT: 396 QTc: 477 Interpretive Statements Sinus rhythm LVH with IVCD and secondary repol abnrm Borderline prolonged QT interval Compared to ECG 11/09/2017 12:13:08 Left ventricular hypertrophy now present Nonspecific change in the ST and T-wave segments Electronically Signed On 06-23-2018 17:12:26 CDT by Ethan Huerta [email or web address] ��������������������������������������������� <ELECTRONICALLY SIGNED> ���������������������������������������� By: Ethan Huerta MD, [facility] ��������������������������������������������� 06/23/18 1712 2246 2246 Ethan Huerta MD, [facility] /EPI
--- NOTE | 2018-06-23 17:42 | NUR ---
PT CARE ASSUMED APPROX 0700. PT ALERT AND ORIENTED X4. DENIES PAIN AND SOA. VSS. BS ELEVATED THIS AM. SSI AND SCHEDULED INSULIN USED MANAGE BS. PT CHEST PAIN HAS RESOLVED. NEW CV MED STARTED. PT EVALUATED BY PT/OT AND WILL POSSIBLY DISCHARGE TO SKILLED TOMORROW. PT UP TO BSC WITH MOD ASSIST. INCONT OF BOWEL AND BLADDER AT TIMES. WILL HAVE DIALYSIS THIS SHIFT. NO DISTRESS NOTED.
[2018-06-23 23:11] LABS: GLYCOHEMOGLOBIN (HGB A1C) 10.2 % (4.8-5.6)
[2018-06-24 03:51] LABS: CALCIUM 8.2 mg/dL (8.5-10.1); MAGNESIUM 1.5 mg/dL (1.8-2.4); POTASSIUM 3.6 mmol/L (3.5-5.1)
--- NOTE | 2018-06-24 04:10 | NUR ---
PT. STARTING DIALYSIS AT SHIFT CHANGE; ON BED; AOX4; MEDICATION GIVEN LATE DUE TO DIALYSIS; C/O R.LE MUSCLE CRAMP AFTER DIALYSIS; FRONT LINE LEADER CONTACTED; ORDERS RECEIVED; PER DIALYSIS NURSE; ABLE TO PULLED 950 ML DUE TO PT'S SBP DROPPED WHEN TRIED TO PULL MORE WELL PT. C/O CRAMPS; ALONDRA ASSESSMENT PAIN 10/10; PRN PAIN MEDICATION GIVEN; PAIN RE-ASSESSMENT 0/10; BS ON THE 70'S; NO SHORT TERM INSULIN GIVEN; REQUESTED JUST 20 UNITS OF INSTALLATION SUPERVISOR INSULIN; HAD SANDWICH WITH [employer] AFTER DIALYSIS; NO C/O PAIN THROUGH THE NIGHT; ABLE TO REST WITH EYES CLOSE; ASSESSMENT CHARGED; FOLLOWING POC; WILL PASS ON REPORT.
[2018-06-24 04:25] LABS: CREATININE 3.6 mg/dL (0.6-1.0)
[2018-06-24 04:39] LABS: HEMATOCRIT 36.9 % (37.0-47.0); HEMOGLOBIN 12.5 gm/dL (12.0-15.0); MCH 30.9 pg (26.0-34.0); MCHC 33.8 g/dL (28.0-37.0); MCV 91.4 fL (80.0-100.0); RBC 4.03 mil/uL (4.20-5.00); RDW 15.9 % (10.5-14.5); WBC 8.1 thou/uL (4.0-11.0)
[2018-06-24 04:48] VITALS: BP 135/68
[2018-06-24 07:50] VITALS: BP 149/78
--- NOTE | 2018-06-24 09:37 | HC ---
[facility] [place] [address] CONSULTATION Name: ALBERTO BARBOZA Room #: 206-P ADM IN M.R.#: [id number] Admission: 06/23/18 ������������������ Attend Phys: Armando Alcantar MD Discharge: ������������������ Date of : 54 Report #: [id number] THIS REPORT FOR: //name// CC: Armando Alcantar Physician staff RUSLANJAYA LEBLANC REASON FOR CONSULTATION: End-stage renal disease. REASON FOR THE PRESENTATION: Chest pain. HISTORY OF PRESENT ILLNESS: A well-known patient to me. She has an end-stage renal disease with history of coronary artery disease, status post CABG. She presented with nonspecific chest pain radiating to her left shoulder area. She grades as 8/10, stabbing in nature. She took some nitroglycerin with no improvement. She presented to the Emergency Room where she received some intravenous medications including fentanyl and Toradol. No associated symptoms. No previous similar episodes. She was admitted to further evaluate. She had a cardiac catheterization back in 2018, which showed some occluded grafts. Recommendation at that time included medical management. Troponins were negative. I am being consulted to manage her end-stage renal disease. PAST MEDICAL HISTORY: 1. End-stage renal disease. 2. Diabetes mellitus. 3. Hypertension. 4. Coronary artery disease. 5. Status post CABG. 6. Left AV fistula. 7. Tunneled IJ catheter. MEDICATIONS: 1. Isosorbide. 2. Atorvastatin. 3. Aspirin. 4. Insulin. 5. Nitroglycerin. 6. Plavix. 7. Amlodipine. ALLERGIES: None. FAMILY HISTORY: Strong family history of diabetes mellitus and hypertension. SOCIAL HISTORY: No drug or alcohol abuse. REVIEW OF SYSTEMS: [facility] [address] [place] [address] CONSULTATION Name: ALBERTO BARBOZA Room #: 206-P ADM IN M.R.#: [id number] Admission: 06/23/18 ������������������ Attend Phys: Armando Alcantar MD Discharge: ������������������ Date of : 54 Report #: [id number] GENERAL: No fever or chills. CARDIOVASCULAR: As per the history of present illness. PULMONARY: No cough or hemoptysis. GASTROINTESTINAL: No nausea or vomiting. GENITOURINARY: She is anuric. PHYSICAL EXAMINATION: GENERAL: She is alert, oriented. VITAL SIGNS: Blood pressure is 145/70. She is afebrile. HEAD AND NECK: No jugular venous distention. CHEST: No crackles. CARDIOVASCULAR: No rub. ABDOMEN: Soft, nontender. LOWER EXTREMITIES: Left above knee amputation. LABORATORY DATA: Reviewed. Troponins are negative. Chemistry revealed sodium of 134, potassium of 4, chloride of 95, carbon dioxide of 27. Chest x-ray with cardiomegaly and mild vascular congestions. ASSESSMENT, IMPRESSION AND PLAN: 1. End-stage renal disease. 2. Nonspecific chest pain. 3. We will arrange for the patient to have her hemodialysis. 4. Stable to go home after her hemodialysis. ��������������������������������������������� <ELECTRONICALLY SIGNED> ���������������������������������������� By: Heena Martini MD ��������������������������������������������� 06/24/18 0937 0937 1529 Heena Martini MD /nt
[2018-06-24 11:38] VITALS: BP 147/69
--- NOTE | 2018-06-24 12:00 | NUR ---
SW reviewed chart and spoke with nursing and attending physician. Pt is progressing towards goals for discharge. Clinical and therapy updates will be sent to [facility] post acute liaison when available. SW met with pt at bedside to provide update and discuss discharge plan. Pt is aware and agreeable. Attending physician states that he will contact pt's physician at [facility] regarding bloot clot in her right leg. ALIS is following to assist as needed with discharge planning.
--- NOTE | 2018-06-24 13:14 | NUR ---
ASSUMED CARE AT 0700, SHIFT ASSESSMENT DONE, VSS. MEDS GIVEN, DENIES PAIN, NAUSEA, VOMITING. INDICATED WILLINESS TO DISCHARGE FOR REHAB, NURSE OUTREACH CASE MANAGER INVOLVED. LOGAN BARRIENTOS, ON MODERATE DOSE INSULIN. NSR WITH BBB ON TELE. PATIENT WILL BE DISCHAGING TODAY AT 1500. WILL CONTINUE TO ASSESS AND ASSIST WITH ADLs NEEDED.
[2018-06-24] MEDS ORDERED: IMDUR 30 MG TAB30 M1 PO (13:21)
== END 2018-06-24 15:11 | DRG 205 ==
LOC: ER 22:42 → 2N 06-23 00:34 → EROBS 06-23 00:34 → 2N 06-23 01:30
PROVIDERS: Nurse Practitioner Acute Care; Student in an Organized Health Care Education/Training Program; ADMIT Internal Medicine
PROC: 5A1D70Z Performance of Urinary Filtration, Intermittent, Less than 6 Hours Per Day (ICD-10-PCS; principal; 2018-06-23)
DX: M94.0 Chondrocostal junction syndrome [Tietze] (principal); N18.6 End stage renal disease; I50.22 Chronic systolic (congestive) heart failure; E46 Unspecified protein-calorie malnutrition; Z68.1 Body mass index [BMI] 19.9 or less, adult; I13.2 Hypertensive heart and chronic kidney disease with heart failure and with stage 5 chronic kidney disease, or end stage renal disease; I25.10 Atherosclerotic heart disease of native coronary artery without angina pectoris; E11.22 Type 2 diabetes mellitus with diabetic chronic kidney disease; E11.51 Type 2 diabetes mellitus with diabetic peripheral angiopathy without gangrene; E11.65 Type 2 diabetes mellitus with hyperglycemia; Z95.1 Presence of aortocoronary bypass graft; Z83.3 Family history of diabetes mellitus; Z82.49 Family history of ischemic heart disease and other diseases of the circulatory system; Z89.612 Acquired absence of left leg above knee; Z90.49 Acquired absence of other specified parts of digestive tract; Z95.820 Peripheral vascular angioplasty status with implants and grafts; Z95.5 Presence of coronary angioplasty implant and graft; Z87.891 Personal history of nicotine dependence; Z79.82 Long term (current) use of aspirin; Z79.899 Other long term (current) drug therapy; Z28.21 Immunization not carried out because of patient refusal
CPT/HCPCS: 10081; 32100

== ENCOUNTER 2018-10-02 14:51 | Inpatient (IN) | payer OTHER ==
[~2018-10-02] VITALS: Ht 162.6 cm; Wt 90.0 kg
[~2018-10-02 14:51] MED LIST changes: +IMDUR 30 MG TAB30 M1 PO; +LANTUS100 UNIT/M SUBQ
[2018-10-02 15:05] VITALS: BP 126/52
[2018-10-02 16:53] LABS: ABSOLUTE NEUTROPHILS 7.4 thou/uL (1.4-8.2); BASOPHILS 0.8 % (0.0-2.0); EOSINOPHILS 2.5 % (0.0-3.0); HEMATOCRIT 27.8 % (37.0-47.0); HEMOGLOBIN 9.1 gm/dL (12.0-15.0); LYMPHOCYTES 12.3 % (24.0-44.0); MCH 31.9 pg (26.0-34.0); MCHC 32.7 g/dL (28.0-37.0); MCV 97.5 fL (80.0-100.0); MONOCYTES 7.7 % (1.0-8.0); PLATELET COUNT 267 thou/uL (150-400); POLYS 76.7 % (36.0-66.0); RBC 2.85 mil/uL (4.20-5.00); RDW 17.5 % (10.5-14.5); WBC 9.6 thou/uL (4.0-11.0)
[2018-10-02 17:03] LABS: CALCIUM 8.9 mg/dL (8.5-10.1); CREATININE 5.5 mg/dL (0.6-1.0); POTASSIUM 5.6 mmol/L (3.5-5.1)
[2018-10-02 18:42] VITALS: BP 127/68
--- NOTE | 2018-10-02 18:45 | NUR ---
ATTEMPT TO CALL REPORT AT THIS TIME, WAS TOLD RECEIVING RN UNAVAILABLE. ADVISED THAT WILL NECESSITATE BEDSIDE REPORT IF NO CALL BACK WITHIN 20MINS
[2018-10-02 18:48] LABS: ALBUMIN 2.5 g/dL (3.4-5.0); TOTAL PROTEIN 7.4 g/dL (6.4-8.2)
[2018-10-02 19:13] LABS: TSH 1.47 uIU/mL (0.358-3.740)
[2018-10-02 19:27] VITALS: BP 127/58
[2018-10-02 20:00] VITALS: BP 153/63
[2018-10-03 01:03] VITALS: BP 131/52
--- NOTE | 2018-10-03 01:03 | NUR ---
PT ARRIVED FROM ED AT 1940 ACCOMPANIED BY ED STAFF. PT ALERT AND ORIETED X4. SR ON THE MONITOR. VSS. PT C/O GENERALIZED PAIN. PT ALSO STARTED C/O LUQ ABDOMINAL PAIN. 12 EKG DONE AT BEDSIDE. FINDINGS COMMUNICATED TO SALVAGE CUTTER. ORDERS FOR 3 VIEW ABDOMINAL X RAY GIVEN. PT ABLE TO TOLERATE PO MEDS. WILL CONTINUE TO MONITOR PT.
[2018-10-03 04:15] VITALS: BP 125/49
[2018-10-03 05:03] LABS: HEMATOCRIT 26.8 % (37.0-47.0); HEMOGLOBIN 8.8 gm/dL (12.0-15.0); MCH 31.8 pg (26.0-34.0); MCHC 32.7 g/dL (28.0-37.0); MCV 97.1 fL (80.0-100.0); RBC 2.76 mil/uL (4.20-5.00); RDW 16.9 % (10.5-14.5); WBC 9.1 thou/uL (4.0-11.0)
[2018-10-03 05:24] LABS: CALCIUM 8.2 mg/dL (8.5-10.1); CREATININE 5.9 mg/dL (0.6-1.0); MAGNESIUM 1.9 mg/dL (1.8-2.4)
[2018-10-03 05:26] LABS: POTASSIUM 4.6 mmol/L (3.5-5.1)
[2018-10-03 06:50] VITALS: BP 159/70
[2018-10-03 11:10] VITALS: BP 142/66
[2018-10-03 15:53] VITALS: BP 153/72
--- NOTE | 2018-10-03 17:31 | NUR ---
PT ALERT AND ORIENTED TIMES FOUR. VSS, 97%RA, SR ON TELE. PT C/O RIGHT GROIN PAIN PRN MEDICATIONS GIVEN WITH SOME RELEIF. PT TOLERATES MEDS AND MEALS. SISTER AT BEDSIDE THIS AFTERNOON. PT SLOWLY PROGRESSING TOWRADS POC GOALS.
[2018-10-03 19:46] VITALS: BP 152/64
[2018-10-04 03:44] VITALS: BP 142/56
[2018-10-04 03:58] LABS: CREATININE 6.6 mg/dL (0.6-1.0); POTASSIUM 4.8 mmol/L (3.5-5.1)
--- NOTE | 2018-10-04 04:15 | NUR ---
ASSESSMENT CHARTED. VSS. PT DENIES AB OR GROIN PAIN, STATED SHE DID HAVE IT EARLIER. RIGHT GROIN WOUND REDRESSED. PT REFUSED COLLACE AGREED TO TO TAKE MIRALAX. PT UP TO BEDSIDE. TOOK MEDS AND FOOD WELL. DENIES ANY CONCERN. CONSULT FOR WOUND CARE. WILL CONTINUE TO MONITOR AND WITH POC.
[2018-10-04 04:17] LABS: HEMATOCRIT 26.9 % (37.0-47.0); HEMOGLOBIN 8.9 gm/dL (12.0-15.0); MCH 31.9 pg (26.0-34.0); MCHC 33.1 g/dL (28.0-37.0); MCV 96.5 fL (80.0-100.0); RBC 2.78 mil/uL (4.20-5.00); RDW 17.2 % (10.5-14.5); WBC 7.5 thou/uL (4.0-11.0)
[2018-10-04 07:10] VITALS: BP 136/76
--- NOTE | 2018-10-04 08:10 | EKG ---
[address] [address] ELECTROCARDIOGRAM REPORT Name: ALBERTO BARBOZA Room #: 210-P ADM IN M.R.#: [id number] ������������������ Admission: 10/02/18 ������������������ Attend Phys: Armando Alcantar MD Discharge: ������������������ Date of : 54 Report #: [id number] ����������������������������������������������������������������� [id number] THIS REPORT FOR: //name// [facility] Test Date: 2018-10-02 Test Time: 20:42:34 Pat Name: ALBERTO BARBOZA Department: Room: 210 P Gender: F Lunchroom Operator: LIU : 1950 Requested By: Armando Alcantar Order Number: [id number] MD: Higinio Brian Measurements Intervals [place] Rate: 69 P: 5 NM: 171 QRS: -36 QRSD: 116 T: 130 QT: 444 QTc: 476 Interpretive Statements Sinus rhythm Nonspecific IVCD with LAD LVH with secondary repolarization abnormality Baseline wander in lead(s) V1 Compared to ECG 06/22/2018 22:46:50 No significant changes Electronically Signed On 10-04-2018 8:10:35 CDT by Higinio Brian [email or web address] ��������������������������������������������� <ELECTRONICALLY SIGNED> ���������������������������������������� By: Higinio Brian MD ��������������������������������������������� 10/04/18 0810 41 41 Higinio Brian MD /EPI
--- NOTE | 2018-10-04 10:52 | HC ---
[facility] [place] [address] CONSULTATION Name: ALBERTO BARBOZA Room #: 210-P ADM IN M.R.#: [id number] Admission: 10/02/18 ������������������ Attend Phys: Armando Alcantar MD Discharge: ������������������ Date of : 54 Report #: [id number] THIS REPORT FOR: //name// CC: Armando Alcantar Physician staff KATHARINA LEBLANC DATE OF SERVICE: 10/03/2018 REASON FOR CONSULTATION: I was asked to evaluate concerning suspected surgical site infection of the right groin and bacteremia. HISTORY OF PRESENT ILLNESS: The patient was a 68-year-old with underlying history of hypertension, diabetes, end-stage renal disease and peripheral vascular disease. A month ago, she underwent fem-pop bypass by Dr. Daniel Clayton at [facility]. Postoperatively she had a wound that they have been caring for. She apparently had a positive blood culture from the retirement and was hospitalized because of such. The patient has noticed a fever over the last 24 hours. Occasional chill. No sweats. Has pain in the right groin region. Some drainage from her incisional wound. REVIEW OF SYSTEMS: Denies any cough or sputum production. No chest pain. No nausea, vomiting or diarrhea. She has had an amputation to the left [id number] remotely. Has moderate amount of pain in her right foot, which has been chronic. Other 10-point review of systems was negative other than what is described above. ALLERGIES: None. MEDICATIONS: As noted on MAR, now on vancomycin and ceftriaxone. I do not see she was on any other antibiotics predating this. PAST MEDICAL HISTORY: Coronary artery disease, coronary artery bypass grafting, left AKA, peripheral vascular disease with previous stents, left upper extremity AV fistula, cholecystectomy, congestive heart failure, bilateral knee surgeries, diabetes, end-stage renal disease. FAMILY HISTORY: Coronary artery disease, diabetes. SOCIAL HISTORY: Past smoker, no significant alcohol intake. PHYSICAL EXAMINATION: VITAL SIGNS: Afebrile with maximum temperature was 101 degrees. Hemodynamically stable. GENERAL: She was alert and cooperative and pleasant, was in no acute distress. Had some pain when I tried to lay her down flat. She was obese. [facility] [address] [place] [address] CONSULTATION Name: ALBERTO BARBOZA Room #: 210-P ADM IN M.R.#: [id number] Admission: 10/02/18 ������������������ Attend Phys: Armando Alcantar MD Discharge: ������������������ Date of : 54 Report #: [id number] SKIN: Unremarkable other than what we described in her extremity examination. No palpable adenopathy. HEENT: Eyes, without scleral icterus. Mouth without mucositis. LUNGS: Clear. HEART: Regular, without murmur, gallop or rub. ABDOMEN: Obese, soft, tenderness in the right lower quadrant, no appreciable mass. EXTREMITIES: Left AKA site was unremarkable. Left upper extremity AV fistula site unremarkable. Right lower extremity groin wound with serous drainage. Wound size was about 2 cm. I did not see any tunnel. She had swelling in the upper medial thigh and groin region. Moderate amount of tenderness in this region as well. Did have surrounding erythema. Pulses were diminished in her foot. Sensation in the foot was intact. She was able to move her right leg, strength was diminished in the right foot. LABORATORY STUDIES: Reviewed. Cultures here are pending. I have yet to see her outside culture results. Chest x-ray without acute infiltrate. IMPRESSION: Fever and bacteremia with suspected surgical site infection of the right groin post fem-pop bypass. This is in the setting of end-stage renal disease, peripheral vascular disease, and diabetes. RECOMMENDATION: Await blood and wound cultures. CT imaging of the right pelvis and thigh. Continue with broad antibiotic coverage pending cultures. Continue with wound care. Diabetic management. Dialysis program. Overall, the patient is at risk for loss of limb in this extremity. We will also need to assess patency of her graft. ��������������������������������������������� <ELECTRONICALLY SIGNED> ���������������������������������������� By: Geovani Bernstein MD ��������������������������������������������� 10/04/18 1052 1153 [id number] Geovani Bernstein MD /nt
[2018-10-04 12:00] VITALS: BP 154/62
--- NOTE | 2018-10-04 12:45 | NUR ---
INITIAL ASSESSMENT: ALIS reviewed chart and spoke with nursing and attending physician. Pt was admitted from [facility] due to wound infection/ESRD. Pt is a chronic dialysis pt at [facility] on at 1130. ALIS met with pt at bedside. Introduced role of ALIS. Pt is alert/orientated x 4. Pt confirms that her plan is to return to [facility]. Physicians have contacted vascular surgery services at [facility] for possible transfer. Pt agreeable with transfer. Choice of Vendor Form and EMTALA form signed and placed on chart. ALIS contacted the [facility] transfer center and spoke with Rosy. Clinical and demographic info provided. Contact number for attending physician provided. ALIS to fax requested info to [phone]. ALIS offered to contact pt's family. Pt states she will notify her family. ALIS updated nursing and attending physician. ALIS is following to assist as needed with discharge planning.
--- NOTE | 2018-10-04 13:45 | NUR ---
WOUND CONSULT; ROUNDING WITH DR THERESA IRBY AND PHU RN. THE PATIENT WANTS TO GO BACK TO [facility]. THE RIGHT GROIN WOUND IS PACKED WITH IODAFORM GUAZE/4X4 AND SECURE WITH TAPE. RECOMMENDATIONS; CONTINUE SAME. PLEASE SEE DR IRBY NOTE FOR ADDITIONAL INFO. DISCUSSED WITH RN
--- NOTE | 2018-10-04 14:45 | NUR ---
VSS NSR LUNGS DIMINISHED AND CLEAR, O2 SAT RA IS 95%. DIALYSIS TODAY THROUGH L ARM FISTULA, 2.5 L REMOVED, R GROIN FEM POP SITE DRESSING CHANGED, SERROSANGUINOUS DRAINAGE, PACKED WITH IODIFORM. PT REMAINS ON BEDREST. WILL CONTINUE TO MONITER AND CARE FOR PT PER PLAN OF CARE
[2018-10-04 15:46] VITALS: BP 133/66
[2018-10-04 21:04] VITALS: BP 123/48
--- NOTE | 2018-10-05 03:15 | NUR ---
ASSESSMENT CHARTED. VSS. PT DENIES CONCERN OR PAIN. PT HELPS TURN SELF IN BED NEEDS HELP WITH REPOSITIONING PILLOWS. RIGHT GROIN WOUND SEROSANGUINOUS DRAINAGE, REDRESSED PER ORDERS. WILL CONTINUE TO MONITOR AND WITH POC.
[2018-10-05 03:43] LABS: HEMATOCRIT 28.8 % (37.0-47.0); HEMOGLOBIN 9.5 gm/dL (12.0-15.0); MCH 31.6 pg (26.0-34.0); MCHC 32.9 g/dL (28.0-37.0); RDW 17.1 % (10.5-14.5); WBC 7.6 thou/uL (4.0-11.0)
[2018-10-05 03:59] LABS: CALCIUM 8.1 mg/dL (8.5-10.1); MAGNESIUM 1.9 mg/dL (1.8-2.4); POTASSIUM 4.3 mmol/L (3.5-5.1)
[2018-10-05 04:01] LABS: CREATININE 5.4 mg/dL (0.6-1.0)
[2018-10-05 04:27] VITALS: BP 150/69
--- NOTE | 2018-10-05 08:08 | HC ---
[facility] [place] [address] CONSULTATION Name: ALBERTO BARBOZA Room #: 210-P ADM IN M.R.#: [id number] Admission: 10/02/18 ������������������ Attend Phys: Armando Alcantar MD Discharge: ������������������ Date of : 54 Report #: [id number] THIS REPORT FOR: //name// CC: Armando Alcantar Physician staff RUSLANJAYA LEBLANC REASON FOR CONSULTATION: Sent from her nursing facility because of high white blood cell count, procalcitonin; positive blood culture. HISTORY OF PRESENT ILLNESS: This is a 68-year-old with past medical history of end-stage renal disease due to long-standing diabetes mellitus and hypertension. She dialyzes every Thursday, Thursday and Thursday. She recently had right fem-pop bypass. This was complicated by an open wound, for which she continues to see the vascular surgeon. Labs were obtained in her nursing facility and she was told she has bacteremia with high white blood cell count. She denies any fever or chills. No chest pain or palpitation. No nausea or vomiting. From the renal perspective, she is in end-stage renal disease, who is maintained on hemodialysis every Thursday, Thursday and Thursday utilizing a left AV fistula. She had issues with this AV fistula, requiring angioplasty. Her end-stage renal disease was attributed to long-standing diabetes mellitus and hypertension. She has a left lower extremity amputation because of diabetic complications. MEDICATIONS: 1. Lipitor. 2. Aspirin. 3. Lispro insulin. 4. Pantoprazole. 5. Lantus. 6. Plavix. 7. Amlodipine. PAST MEDICAL AND SURGICAL HISTORY: 1. Status post CABG. 2. Coronary artery disease. 3. Left AV fistula. 4. Recent fem-pop bypass on the right side. 5. Left AKA. 6. Cholecystectomy. 7. Diabetes mellitus. 8. End-stage renal disease, maintained on hemodialysis. FAMILY HISTORY: Very strong family history of diabetes mellitus and hypertension. SOCIAL HISTORY: She resides in a nursing facility. No drug or alcohol abuse. [facility] [address] [place] [address] CONSULTATION Name: ALBERTO BARBOZA Room #: 210-P [facility] IN M.R.#: [id number] Admission: 10/02/18 ������������������ Attend Phys: Armando Alcantar MD Discharge: ������������������ Date of : 54 Report #: [id number] ALLERGIES: None. REVIEW OF SYSTEMS: GENERAL: No fever or chills. CARDIOVASCULAR: No chest pain or palpitation. PULMONARY: No cough or hemoptysis. GASTROINTESTINAL: No nausea or vomiting. MUSCULOSKELETAL: As per the history of present illness. PHYSICAL EXAMINATION: GENERAL: She is alert, oriented, in no apparent distress. VITAL SIGNS: Her temperature from yesterday maxed at 38.5. Blood pressure is 159/70. HEAD AND NECK: No jugular venous distention. CHEST: No crackles. CARDIOVASCULAR: Regular with no rub detected. ABDOMEN: Soft, nontender. LOWER EXTREMITIES: Left AKA. Scar from her recent right fem-pop bypass with edema. I did not expose the wound. LABORATORY DATA: Reviewed. White blood cell count is 9.1. Chemistry from yesterday revealed a sodium of 138, potassium of 4.6. Blood cultures are pending. ASSESSMENT, IMPRESSION, PLAN: 1. End-stage renal disease. 2. Fever. 3. Recent fem-pop bypass. 4. Positive blood culture in her nursing facility. 5. We will arrange for the patient to have her hemodialysis done tomorrow. 6. Follow blood cultures. 7. Obtain cultures from the nursing facility. 8. ID consultation. 9. Investigate the source for her procalcitonin and fever along with her positive blood cultures in the nursing facility. ��������������������������������������������� <ELECTRONICALLY SIGNED> ���������������������������������������� By: Heena Martini MD ��������������������������������������������� 10/05/18 0808 0827 [id number] Heena Martini MD /nt
[2018-10-05 08:22] VITALS: BP 144/45
[2018-10-05 11:58] VITALS: BP 152/73
--- NOTE | 2018-10-05 12:27 | NUR ---
patient accepted to [facility]. Accepting phys Dr. Lauri Olson. Room 3034. Rn gave report. [facility] for 1330. Notified patient and called sister Coco who will notify sister Constance. No further needs
--- NOTE | 2018-10-05 12:30 | HC ---
[facility] [place] [address] CONSULTATION Name: ALBERTO BARBOZA Room #: 210-P ADM IN M.R.#: [id number] Admission: 10/02/18 ������������������ Attend Phys: Armando Alcantar MD Discharge: ������������������ Date of : 54 Report #: [id number] THIS REPORT FOR: //name// CC: Armando Alcantar Physician staff KATHARINA LEBLANC DATE OF SERVICE: 10/03/2018 WOUND CARE CONSULTATION REASON FOR CONSULTATION: Draining painful surgical wound of right groin. HISTORY OF PRESENT ILLNESS: The patient is a 68-year-old woman with end-stage renal disease and coronary artery disease, who was living in a [facility]. She gives the history that one month ago she underwent vascular surgery by Dr. Clayton at [facility] for "a blood clot in my right leg." No surgical history was brought with her. It is uncertain whether she had an embolic event or atherosclerotic disease. The patient was discharged from [facility] to a m[facility], she stays there since the time of surgery, she has had some drainage from the right groin. Right groin has become more tender and swollen, painful with signs of infection and increased drainage. She was admitted to the Emergency Room with a normal white blood count of 9.6 and afebrile. The patient is unable to state whether her right leg symptoms are better since the time of surgery. She is admitted due to a draining wound of the right groin, which may be infected. I did a wound culture at the bedside. PAST MEDICAL HISTORY: Coronary artery disease with coronary artery bypass grafting x 5 with coronary stents. End-stage renal disease, on dialysis. History of arterial occlusion of the right leg. Status post left above-knee amputation. History of hyperkalemia. History of congestive heart failure. ALLERGIES: No known drug allergies. MEDICATIONS: Have included torsemide, metoprolol, Imdur, hydrocodone, atorvastatin, calcitriol, metolazone, Pletal, Crestor, Tylenol, aspirin, vitamin D, Colace, Humalog insulin, Latanoprost, MiraLax, Nitrostat, Protonix, Lantus insulin, Plavix, and Norvasc. PAST SURGICAL HISTORY: Coronary artery bypass grafting x 5 in 1998, cardiac stents on August 27, vascular Surgery to the right leg with groin incision, incisions of the upper thigh, left arm AV fistula, cholecystectomy, left above-knee amputation. SOCIAL HISTORY: The patient lives in a mcfp. [address] [address] CONSULTATION Name: ALBERTO BARBOZA Room #: 210-P [facility] IN [facility].#: [id number] Admission: 10/02/18 ������������������ Attend Phys: Armando Alcantar MD Discharge: ������������������ Date of : 54 Report #: [id number] PHYSICAL EXAMINATION: GENERAL: Shows an alert, obese, elderly woman who appears chronically ill. HEENT: Mucous membranes are moist. LUNGS: Respirations are unlabored. ABDOMEN: Soft. EXTREMITIES: Shows left above-knee amputation, well healed. Examination of the right leg shows nonpalpable dorsalis pedis pulse in the right foot. The patient has healed incisions of the right medial thigh. In the right groin, there are healed surgical incisions with an open wound in the right groin measuring 1.5 cm x 0.5 cm. There is serous straw-colored fluid draining from this. I probed the wound with a cotton-tipped applicator to obtain a culture and there is a subcutaneous cavity extending medially approximately 4 cm deep. Wound cultures were taken. No appreciable redness or cellulitis, but the area is somewhat tender. IMPRESSION AND PLAN: 1. Obesity. 2. Coronary artery disease, status post stents and grafting. 3. End-stage renal disease. 4. 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 5. Nonhealing wound of right groin with drainage. Clinically, this appears to be a draining postoperative seroma, possibly infected. The patient is currently on antibiotics including vancomycin. Wound culture was taken. I believe this wound will need to be surgically opened. Given the vascular surgery in this area, this would be best done by a vascular surgeon, ideally by the patient's primary surgeon, Dr. Clayton, who did the surgery at [facility]. Wound cultures were done. We will continue antibiotics, pack the wound with quarter-inch iodoform gauze daily. We will obtain an ultrasound of the right groin to see if there is a large seroma and consult General Surgery and/or transfer the patient to [facility] for care by her primary vascular surgeon. ��������������������������������������������� <ELECTRONICALLY SIGNED> ���������������������������������������� By: Alexi Mcgrath MD ��������������������������������������������� 10/05/18 1230 1158 [id number] Alexi Mcgrath MD /nt
== END 2018-10-05 13:53 | disposition short-term general hospital (02) | DRG 871 ==
LOC: ER 14:51 → EROBS 18:37 → 2N 18:37
PROVIDERS: Emergency Medicine; ADMIT Internal Medicine
PROC: 5A1D70Z Performance of Urinary Filtration, Intermittent, Less than 6 Hours Per Day (ICD-10-PCS; principal; 2018-10-04)
DX: A41.89 Other specified sepsis (principal); N18.6 End stage renal disease; I50.22 Chronic systolic (congestive) heart failure; I13.2 Hypertensive heart and chronic kidney disease with heart failure and with stage 5 chronic kidney disease, or end stage renal disease; M96.843 Postprocedural seroma of a musculoskeletal structure following other procedure; L02.214 Cutaneous abscess of groin; E87.5 Hyperkalemia; E78.5 Hyperlipidemia, unspecified; I25.10 Atherosclerotic heart disease of native coronary artery without angina pectoris; E66.9 Obesity, unspecified; E11.51 Type 2 diabetes mellitus with diabetic peripheral angiopathy without gangrene; Y83.8 Other surgical procedures as the cause of abnormal reaction of the patient, or of later complication, without mention of misadventure at the time of the procedure; Y82.8 Other medical devices associated with adverse incidents; E11.22 Type 2 diabetes mellitus with diabetic chronic kidney disease; Z79.899 Other long term (current) drug therapy; Z95.1 Presence of aortocoronary bypass graft; Z89.612 Acquired absence of left leg above knee; Z68.34 Body mass index [BMI] 34.0-34.9, adult; Z95.5 Presence of coronary angioplasty implant and graft; Z95.820 Peripheral vascular angioplasty status with implants and grafts; Z90.49 Acquired absence of other specified parts of digestive tract; Z79.84 Long term (current) use of oral hypoglycemic drugs; Z99.2 Dependence on renal dialysis; Z79.82 Long term (current) use of aspirin; Z79.4 Long term (current) use of insulin
CPT/HCPCS: 10081; 32100

== ENCOUNTER 2019-04-23 12:37 | Inpatient (IN) | payer OTHER ==
[~2019-04-23] VITALS: Ht 160 cm; Wt 95.7 kg
[~2019-04-23 12:37] MED LIST changes: -CALCITRIOL0.25 MCG PO
[2019-04-23 13:34] LABS: BE(vivo) 0.7 mmol/L (-2 to +3); HCO3 24.7 mmol/L (22.0-26.0); PCO2 37.5 mmHg (35.0-45.0); PO2 63.2 mmHg (80.0-100.0); pH 7.437 (7.360-7.450)
[2019-04-23 14:02] LABS: HEMATOCRIT 38.5 % (37.0-47.0); HEMOGLOBIN 12.5 gm/dL (12.0-15.0); MCH 30.6 pg (26.0-34.0); MCHC 32.5 g/dL (28.0-37.0); MCV 94.1 fL (80.0-100.0); PLATELET COUNT 215 thou/uL (150-400); RBC 4.09 mil/uL (4.20-5.00); RDW 17.4 % (10.5-14.5); WBC 4.8 thou/uL (4.0-11.0)
[2019-04-23 14:10] LABS: CALCIUM 8.6 mg/dL (8.5-10.1); CREATININE 5.6 mg/dL (0.6-1.0); POTASSIUM 3.8 mmol/L (3.5-5.1)
[2019-04-23 14:20] LABS: ALBUMIN 3.1 g/dL (3.4-5.0); TOTAL BILIRUBIN 0.5 mg/dL (<0.1-1.0); TOTAL PROTEIN 8.1 g/dL (6.4-8.2); TROPONIN-I 0.09 ng/mL (<0.06)
[2019-04-23 14:22] LABS: ABSOLUTE NEUTROPHILS 2.6 thou/uL (1.4-8.2); ANISOCYTOSIS 1+; LARGE PLATELETS RARE; PLATELET ESTIMATE NORMAL
[2019-04-23 15:15] VITALS: BP 177/87
[2019-04-23 15:57] VITALS: BP 172/86
[2019-04-23 16:07] VITALS: BP 153/68
[2019-04-23] MEDS ORDERED: PERCOCET 5-3251 EACH PO (18:29)
--- NOTE | 2019-04-23 18:34 | NUR ---
PT ADMITTED FROM DIALYSIS CLINIC VIA ED AFTER DIAGNOSED WITH INFLUENZA A...SHE ONLY COMPLETED 1 HR OF DIALYSIS TODAY AND THEN WAS BROUGHT TO ED...WHEEZING UPON ADMIT TO FLOOR...DROPLET PREC MAINTAINED...
[2019-04-23] MEDS ORDERED: CALCITRIOL0.25 MCG PO (18:37)
[2019-04-23] MEDS ORDERED: VENOFER200 MG/10 IVPB (18:38)
[2019-04-23 19:29] VITALS: BP 149/54
--- NOTE | 2019-04-23 23:35 | NUR ---
PT RESTING IN BED WATCHING TV AND VISITING WITH SISTER AND FRIEND. PT VERY SOFT SPOKEN, NOTED EXERTION WITH CONVERSATION. LUNGS COARSE. LAKA, Levon AV FISTUAL, RFA MIDLINE. PT REQUESTED TWO CUPS OF SOUP A SANDWICH AND A POPSICLE. PT INITIALLY RESISTIVE TO TAKING MEDICATIONS BUT AFTER EXPLAINATION RE MUCINEX AND HEPARIN PT COMPLIANT. LOOSE COUGH NOTED, PT SPITTING CLEAR LIQUID INTO KLEENEX.
[2019-04-24] VITALS (7 sets, daily range): BP systolic 122–185; BP diastolic 53–101
--- NOTE | 2019-04-24 04:47 | NUR ---
PTS BP IN RLE 185/100. THEE WALLACE NOTIFIED, WILL GIVE METOPROLOL AM DOSE NOW.
[2019-04-24 05:00] LABS: HEMATOCRIT 38.7 % (37.0-47.0); HEMOGLOBIN 12.7 gm/dL (12.0-15.0); MCHC 32.8 g/dL (28.0-37.0); MCV 94.5 fL (80.0-100.0); RBC 4.09 mil/uL (4.20-5.00); RDW 17.1 % (10.5-14.5); WBC 2.5 thou/uL (4.0-11.0)
[2019-04-24 05:17] LABS: CALCIUM 8.3 mg/dL (8.5-10.1); CREATININE 6.2 mg/dL (0.6-1.0); POTASSIUM 4.3 mmol/L (3.5-5.1); TROPONIN-I 0.08 ng/mL (<0.06)
--- NOTE | 2019-04-24 19:51 | NUR ---
1830 Dialysis completed, pt tolerated it well. 2L OF PER DIALYSIS NURSE. PT DENIES ANY NEEDS AT THE MOMENT. cALL LIGHT IN REACH. WILL CONTINUE TO MONITOR.
--- NOTE | 2019-04-24 22:06 | NUR ---
PT RESTING IN BED WATCHING TV, HAD A VISITOR. LESS SOA WHEN TALKING, GOOD E[facility] CONTACT . LUNGS REMAIN COARSE. PT REQUESTING HS SNACKS. NO RESISTANCE WITH HS MEDS. PT REPOSITIONING SELF IN BED. PT REQUESTING LOTION FOR HER ANDREW AREA AND PROVIDED. PT HAD DIALYSIS ON DAY SHIFT. LAV FISTULA AND MIDLINE CURT INTACT. NO C/O PAIN OR NAUSEA.
[2019-04-25 04:18] VITALS: BP 130/57
[2019-04-25 07:27] VITALS: BP 128/71
[2019-04-25 11:48] VITALS: BP 140/72
--- NOTE | 2019-04-25 13:20 | NUR ---
pt alert and awake, denies any need nor concerns. call light in reach. pt plan of care is progressing. states coughing is "much better". will continue to monitor
--- NOTE | 2019-04-25 14:49 | EKG ---
[place] [address] [facility] [place] [address] ELECTROCARDIOGRAM REPORT Name: ALBERTO BARBOZA Room #: 358-P ADM IN M.R.#: [id number] Admission: 04/23/19 Attend Phys: Amilcar Mallory MD Discharge: Date of : 54 Report #: [id number] THIS REPORT FOR: //name// [facility] ED Test Date: 2019-04-23 Test Time: 12:56:03 Pat Name: ALBERTO BARBOZA Department: Room: 358 Gender: F Barrel Raiser Helper: BRUCE : 1950 Requested By: Krysta Lundy Order Number: [id number] MD: Higinio Brian Measurements Intervals [address] Rate: 87 P: 109 NH: 119 QRS: 12 QRSD: 121 T: 178 QT: 405 QTc: 488 Interpretive Statements Sinus rhythm Supraventricular bigeminy Borderline short NH interval IVCD, consider atypical RBBB LVH with secondary repolarization abnormality Anterior Q waves, possibly due to LVH Compared to ECG 10/02/2018 20:42:34 Atrial premature complex(es) now present Q waves now present Electronically Signed On 04-25-2019 14:48:49 BIOSOLIDS MANAGEMENT TECHNICIAN by Higinio Brian [email or web address] <ELECTRONICALLY SIGNED> By: Higinio Brian MD 04/25/19 1448 1256 1256 Higinio Brian MD /EPI
[2019-04-25 15:08] LABS: HEP B SURFACE Ab(ANTI-HBS Reactive (()); HEPATITIS B SURFACE AG Negative (Negative)
[2019-04-25 16:32] VITALS: BP 125/66
[2019-04-25 18:41] LABS: HEMATOCRIT 39.8 % (37.0-47.0); HEMOGLOBIN 12.7 gm/dL (12.0-15.0); MCH 30.5 pg (26.0-34.0); MCV 95.4 fL (80.0-100.0); RBC 4.17 mil/uL (4.20-5.00); RDW 16.9 % (10.5-14.5); WBC 8.7 thou/uL (4.0-11.0)
[2019-04-25 18:57] LABS: CALCIUM 8.2 mg/dL (8.5-10.1); CREATININE 5.3 mg/dL (0.6-1.0); POTASSIUM 3.9 mmol/L (3.5-5.1)
[2019-04-25 19:35] VITALS: BP 124/87
--- NOTE | 2019-04-26 03:24 | NUR ---
PATIENT IS ALERT AND ORIENTED. PATIENT IS PIVIOT TRANSFER TO C. PATIENT DENIES PAIN. PATIENT IS PENDING DIALYSIS TODAY. PATIENT IS ROOM AIR. PAITENT CAN TURN SELF. PATIENT IS RESTING COMFORTABLY IN BED. ROSALINDAM.
[2019-04-26 04:20] VITALS: BP 142/77
[2019-04-26 06:04] LABS: HEMATOCRIT 40.6 % (37.0-47.0); HEMOGLOBIN 13.2 gm/dL (12.0-15.0); MCH 31.1 pg (26.0-34.0); MCHC 32.5 g/dL (28.0-37.0); MCV 95.7 fL (80.0-100.0); RBC 4.24 mil/uL (4.20-5.00); RDW 17.3 % (10.5-14.5)
[2019-04-26 06:10] LABS: CALCIUM 8.1 mg/dL (8.5-10.1); CREATININE 6.1 mg/dL (0.6-1.0); POTASSIUM 3.8 mmol/L (3.5-5.1)
[2019-04-26 07:26] VITALS: BP 144/110
[2019-04-26 11:17] VITALS: BP 176/76
[2019-04-26 16:16] VITALS: BP 154/69
--- NOTE | 2019-04-26 16:32 | NUR ---
INITIAL ASSESSMENT: Received consult. SW reviewed chart and spoke with nursing and attending physician. Pt was admitted due to acute respiratory failure. Pt is in droplet isolation for Influenza A. Pt with hx of left AKA. Pt is on dialyis at [facility]. Pt has been to [facility] in the past. SW met with pt at bedside. Introduced role of SW. Pt is alert/orientated. Pt was drowsy, as she had dialysis earlier today. Pt reports she lives at home alone. Prior to admission, pt was using a w/c for mobility. Pt has in home care through her [place] Medicaid with [facility]. They come out 5 days a week. Pt has additional help at home over the weekends. Pt's dialysis is MWF at 1100. Pt has transportation to/from dialysis. Pt states that her goal is to return home. Therapy ordered today to evaluate pt for discharge needs. SW is following to assist as needed with discharge planning.
--- NOTE | 2019-04-26 17:57 | NUR ---
ASSUMED PATIENT CARE AT 0700. A/0 X4. TOLERATED ON HD. 2L OUT. PROGRESSING TOWARDS POC GOALS.
[2019-04-26 19:32] VITALS: BP 125/61
--- NOTE | 2019-04-26 21:59 | NUR ---
PT SITTING IN BED TALKING ON PHONE AND WATCHING TV. PT LESS SOA WITH TALKING. LUNGS WHEEZES. 2 PERSON ASSIST WITH TRANSFERS TO [facility]. PT REQUESTED HS SNACK OF PBUTTER X2 AND SALTINE CRACKERS X6 AFTER EATING ORANGE. LAV FISTULA AND R MIDLINE INTACT. REMAINS IN ISOLATION FOR FLU. PT SMILING AND GOOD EYE CONTACT WHEN TALKING WITH STAFF.
--- NOTE | 2019-04-27 04:22 | NUR ---
NOT ABLE TO DRAW LABS THROUGH R MIDLINE, LAB NOTIFIED.
[2019-04-27 04:29] VITALS: BP 131/62
[2019-04-27 08:29] VITALS: BP 104/64
[2019-04-27 12:21] VITALS: BP 154/93
[2019-04-27 12:50] LABS: HEMATOCRIT 39.8 % (37.0-47.0); HEMOGLOBIN 12.9 gm/dL (12.0-15.0); MCH 30.8 pg (26.0-34.0); MCHC 32.5 g/dL (28.0-37.0); MCV 94.9 fL (80.0-100.0); RBC 4.2 mil/uL (4.20-5.00); RDW 17.2 % (10.5-14.5); WBC 10.6 thou/uL (4.0-11.0)
[2019-04-27 12:57] LABS: CALCIUM 8.3 mg/dL (8.5-10.1); POTASSIUM 4.2 mmol/L (3.5-5.1)
[2019-04-27 12:58] LABS: CREATININE 4.5 mg/dL (0.6-1.0)
--- NOTE | 2019-04-27 15:43 | NUR ---
SW reviewed chart and spoke with nursing and attending physician. Pt is progressing towards goals for discharge. SW met with pt at bedside to discuss discharge plan. Pt states she does not feel ready for discharge yet and will need a few more days in the hospital. SW provided pt with list of in-network SNFs for review and also discussed HH services. Pt states she would prefer to have HH therapy. SW is following to assist as needed with discharge planning.
[2019-04-27 17:31] VITALS: BP 143/94
--- NOTE | 2019-04-27 17:59 | NUR ---
NO CHANGED. PROGRESSING TOWARDS POC GOALS.
[2019-04-27 19:24] VITALS: BP 126/73
--- NOTE | 2019-04-28 03:00 | NUR ---
6 beat run of VTACH, patient asleep, asymptomatic when awakened. States she was dreaming. BP 180/85 HR 86. K Wilver HAND HIDE STRETCHER notified with orders.
[2019-04-28 03:02] VITALS: BP 180/85
--- NOTE | 2019-04-28 03:49 | NUR ---
Patient making progress towards outcome goals. Oxygenation optimal on roomair. High fall risks, fall precautions in place. Calls out appropriately for needs. Droplet precautions for influenza.
[2019-04-28 04:47] VITALS: BP 153/99
[2019-04-28 05:32] LABS: CREATININE 5.4 mg/dL (0.6-1.0); MAGNESIUM 1.8 mg/dL (1.8-2.4); POTASSIUM 4.6 mmol/L (3.5-5.1)
[2019-04-28 08:44] VITALS: BP 160/119
[2019-04-28 11:36] VITALS: BP 178/80
--- NOTE | 2019-04-28 12:56 | NUR ---
SW reviewed chart and spoke with nursing and attending physician. Pt is medically stable for discharge today. Pt refusing to go to a post-acute facility. Pt currently receiving dialysis. SW met with pt at bedside to discuss discharge plan. Pt sleeping soundly. Pt has two more hours of dialysis. SW to discuss HH providers and discharge plan with pt. SW is following to assist as needed with discharge planning.
--- NOTE | 2019-04-28 14:45 | NUR ---
DISCHARGE PLANNED FOR TODAY. HOME WITH HOME HEALTH SERVICES. PATIENT REFERRAL FAXED TO [facility]. CALL PLACED TO [facility] INTAKE TO NOTIFY. SPOKE WITH JONO. JONO TO REVIEW REFERRAL AND NOTIFY CM. AWAITING RESPONSE.
[2019-04-28 15:42] VITALS: BP 134/66
[2019-04-28] MEDS ORDERED: METOPROLOL SUCC50 MG PO (15:47)
[2019-04-28] MEDS ORDERED: PROAIR HFA8.5 GM INH (15:47)
[2019-04-28] MEDS ORDERED: LEVAQUIN 500 M500 M3 PO (15:47)
[2019-04-28] MEDS ORDERED: PREDNISONE 10 M10 M1 PO (15:47)
[2019-04-28 15:52] VITALS: BP 134/66
--- NOTE | 2019-04-28 16:26 | NUR ---
PROGRESSING TOWARDS POC GOALS. WILL DC TO HOME WITH HH.
--- NOTE | 2019-05-03 08:19 | HC ---
[facility] [place] [address] CONSULTATION Name: ALBERTO BARBOZA Room #: 358-P [facility] IN M.R.#: [id number] Admission: 04/23/19 Attend Phys: Amilcar Mallory MD Discharge: 04/28/19 Date of : 54 Report #: [id number] THIS REPORT FOR: //name// CC: Amilcar Mallory Physician staff KATHARINA LEBLANC DATE OF SERVICE: 04/24/2019 REASON FOR CONSULTATION: End-stage renal disease. REASON FOR PRESENTATION: Not feeling well. HISTORY OF PRESENT ILLNESS: A 69-year-old with past medical history of diabetes mellitus, hypertension, hyperlipidemia, peripheral vascular disease, coronary artery disease, end-stage renal disease. She has not been feeling well since Thursday. This has started with upper respiratory tract symptoms. She had significant cough. The patient went to her dialysis unit yesterday; however, she was unable to finish about 1 hour. She presented to the Emergency Room where she was found to be significantly hypoxemic. She tested positive for influenza A and she was admitted for further evaluation and management. PAST MEDICAL HISTORY: 1. End-stage renal disease. 2. Status post CABG. 3. Peripheral vascular disease, post left AKA. 4. Cholecystectomy. 5. Cardiomyopathy. 6. Recent fem-pop bypass. This was complicated by chronic groin wound; however, this has healed. MEDICATIONS: 1. Atorvastatin. 2. Lispro insulin. 3. Nitroglycerin. 4. Lantus. 5. Plavix. 6. Amlodipine. ALLERGIES: None. FAMILY HISTORY: Strong family history of diabetes mellitus and hypertension. REVIEW OF SYSTEMS: GENERAL: Significant for weakness and lethargy. No fever or chills. [facility] [address] [place] [address] CONSULTATION Name: ALBERTO BARBOZA Room #: 358-P [facility] IN M.R.#: [id number] Admission: 04/23/19 Attend Phys: Amilcar Mallory MD Discharge: 04/28/19 Date of : 54 Report #: [id number] CARDIOVASCULAR: Significant for shortness of breath. PULMONARY: Significant for cough and shortness of breath. GASTROINTESTINAL: No nausea or vomiting. MUSCULOSKELETAL: Status post left AKA. NEUROLOGICAL: No headache, no dizziness. SKIN: No rash or ulcerations. PHYSICAL EXAMINATION: GENERAL: Alert, oriented. VITAL SIGNS: Blood pressure is significantly elevated at 170/100. HEAD AND NECK: No jugular venous distention. CHEST: Bilateral crackles. CARDIOVASCULAR: No rub detected. ABDOMEN: Soft, nontender. LOWER EXTREMITIES: Status post left AKA. Chest x-ray reviewed and this was consistent with bilateral pulmonary edema. LABORATORY DATA: Values showed a of 136, potassium of 4.3, BUN of 37, creatinine of 6.2, blood sugar is 300. ASSESSMENT, IMPRESSION AND PLAN: 1. End-stage renal disease. 2. Influenza. 3. Fluid overload. 4. Heart failure. 5. Coronary artery disease. 6. Status post coronary artery bypass graft. 7. Continue the usual treatment for the influenza. 8. Arrange for the patient to have hemodialysis today. Next dialysis session after today will be on Thursday. <ELECTRONICALLY SIGNED> By: Heena Martini MD 05/03/19818 4 Heena Martini MD /nt
== END 2019-04-28 18:18 | disposition home health service (06) | DRG 871 ==
LOC: ER 12:37 → 3W 14:29 → EROBS 14:29 → 3W 15:50
PROVIDERS: Hospitalist; Nurse Practitioner Family; Physician Assistant; ADMIT Hospitalist
DX: A41.9 Sepsis, unspecified organism (principal); N18.6 End stage renal disease; J96.01 Acute respiratory failure with hypoxia; J10.00 Influenza due to other identified influenza virus with unspecified type of pneumonia; I50.22 Chronic systolic (congestive) heart failure; I42.9 Cardiomyopathy, unspecified; I13.2 Hypertensive heart and chronic kidney disease with heart failure and with stage 5 chronic kidney disease, or end stage renal disease; E11.51 Type 2 diabetes mellitus with diabetic peripheral angiopathy without gangrene; E11.22 Type 2 diabetes mellitus with diabetic chronic kidney disease; E78.5 Hyperlipidemia, unspecified; I25.10 Atherosclerotic heart disease of native coronary artery without angina pectoris; Z99.2 Dependence on renal dialysis; Z89.612 Acquired absence of left leg above knee; Z79.4 Long term (current) use of insulin; Z23 Encounter for immunization; Z95.1 Presence of aortocoronary bypass graft; Z95.5 Presence of coronary angioplasty implant and graft; Z90.49 Acquired absence of other specified parts of digestive tract; Z79.899 Other long term (current) drug therapy; Z79.82 Long term (current) use of aspirin; Z82.49 Family history of ischemic heart disease and other diseases of the circulatory system; Z87.891 Personal history of nicotine dependence; Z95.820 Peripheral vascular angioplasty status with implants and grafts; Z60.2 Problems related to living alone
CPT/HCPCS: 10879; 32100

== ENCOUNTER 2019-05-03 16:17 | Inpatient (IN) | payer OTHER ==
[~2019-05-03] VITALS: Ht 160 cm; Wt 87.5 kg
[~2019-05-03 16:17] MED LIST changes: +CALCITRIOL0.25 MCG PO; +LEVAQUIN 500 M500 M3 PO; +PERCOCET 5-3251 EACH PO; +PREDNISONE 10 M10 M1 PO; +PROAIR HFA8.5 GM INH; +VENOFER200 MG/10 IVPB
[2019-05-03 16:18] VITALS: BP 175/69
[2019-05-03 21:01] LABS: HEMATOCRIT 41.5 % (37.0-47.0); HEMOGLOBIN 13.3 gm/dL (12.0-15.0); MCH 30.6 pg (26.0-34.0); MCV 95.5 fL (80.0-100.0); PLATELET COUNT 210 thou/uL (150-400); RBC 4.35 mil/uL (4.20-5.00); RDW 16.4 % (10.5-14.5)
[2019-05-03 21:10] LABS: CALCIUM 7.6 mg/dL (8.5-10.1); CREATININE 5.1 mg/dL (0.6-1.0); POTASSIUM 4.9 mmol/L (3.5-5.1)
[2019-05-03 21:16] LABS: ALBUMIN 2.8 g/dL (3.4-5.0); DIRECT BILIRUBIN 0.1 mg/dL (<0.1-0.2); TOTAL BILIRUBIN 0.4 mg/dL (<0.1-1.0); TOTAL PROTEIN 7.7 g/dL (6.4-8.2)
[2019-05-03 21:41] LABS: ABSOLUTE NEUTROPHILS 7.3 thou/uL (1.4-8.2); ANISOCYTOSIS 1+
--- NOTE | 2019-05-03 23:35 | NUR ---
MRI CHECK LIST COMPLETED.
[2019-05-04] VITALS (7 sets, daily range): BP systolic 126–188; BP diastolic 52–91
--- NOTE | 2019-05-04 04:54 | NUR ---
ADMITTED FROM ER UNDER 'S CARE. AXOX4. PATSY AV SHUNT POSITIVE B&T. LIMB ALERT APPLIED. PAIN TX PER ORCHARD MANAGER ORDER. NO S/S ACUTE DISTRESS NOTED OR REPORTED AT THIS TIME. WILL CONT TO MONITOR FOR ANY CHANGES IN CONDITION.
[2019-05-04 06:05] LABS: CREATININE 5.1 mg/dL (0.6-1.0); POTASSIUM 5.6 mmol/L (3.5-5.1)
--- NOTE | 2019-05-04 14:18 | NUR ---
Case opened to follow for dc planning. Trench Digger Helper visited with the pt at bedside. She is a&ox4 and was recently dc'd home on 04/28/2019 with services. She reports that [facility] never contacted her or came out to see her. Trench Digger Helper spoke with them and they confirmed they were still trying to verify the orders with her pcp Dr. Hinojosa at the [facility] green clinic. [facility], Mackenzie in intake, states they are able to try [place] orders [place]. The pt is agreeable but also notes she may be able to get home therapy setup per [facility]. Per the pt request, literary writer left a message for Pedrom[facility] at [facility] [phone]. [facility] provides her with an RN visit 1xwkly for medication setup and a personal care worker 7 days a week for 2- 4hours to help with adl's and housekeeping. The pt goes to dialysis at [facility] MWF 1100am shift via [facility]. Her emergency contacts are her sisters Christina and Coco. She has a w/c and functions at that level d/t lt aka. She can transfer herself. She lives in a senior apt complex with an elevator to her third floor apt. She is open to for therapy either thru [facility] or [facility]. Will ask for therapy evals during her inpt stay to maintain her strength for indep transfers.
--- NOTE | 2019-05-04 14:25 | NUR ---
DISCHARGE PLANNING. POSSIBLE DISCHARGE TODAY PER PHYSICIAN PROGRESS NOTE. HOME WITH [facility]. PATIENT REFERRAL FAXED TO [facility] INTA[facility]. PATIENT DISCHARGED WITH [facility] LAST ADMISSIONS. CALL PLACED TO [facility] TO NOTIFY, SPOKE WITH JONO, INTAKE. JONO STATES THAT PATIENT WAS NOT SEEN LAST ADMISSION. JONO STATES THAT SHE WAS UNABLE TO VERIFY HH COVERAGE WITH PATIENTS PCP DR KATHARINA LEBLANC. JONO TO REACH OUT TO DR LEBLANC AGAIN FOR HH SERVICES. FOLLOWING.
--- NOTE | 2019-05-04 16:43 | NUR ---
Received awake on bed. Due medications given as prescibed, able to swallow meds w/o difficulty. A+Ox4. On room air. Vital signs stable, with elevated blood pressure, due BP meds given as prescribed. Assisted in ADLs. On heart healthy diet- tolerating well; no nausea, no vomiting and no abdominal pain noted. On blood sugar monitoring, taken and recorded accordingly- with scheduled insulin- given as prescribed. With SL at R hand- intact. With L upper arm AV fistula- no dressing in place, as per shift foreman nurse, open to air; dialysis schedule -, with orders from Dr Dent for dialysis today, a/w dialysis nurse. Pt with L AKA- no dressing. Pt visited by sisters today. Falls bundle in place. Pt with elevated blood sugar pre-breakfast: 405, pt said she had ice cream and erik crackers at 3am, asked FLAME HARDENER to recheck blood sugar, CB- Dr Mallory informed, due insulin given as prescribed. Pre-lunch blood sugar of 418- Dr mallory informed, to give 20 units insulin and have endocrine consult- Dr Arce informed re: consult. Pt to have dialysis this afternoon, Report given to Dialysis nurse Shazia, pt transferred to via bed by volunteer staff. Pt for PT/OT Evaluation. To continue monitoring patient.
[2019-05-05 00:10] VITALS: BP 95/45
[2019-05-05 04:09] VITALS: BP 101/42
--- NOTE | 2019-05-05 04:18 | NUR ---
ASSUMED CARE AROUND 194. PICKED PT UP FROM DIALYSIS ON 4E. AXOX3. PERSISTENT PAIN TO NECK. MEDICATED PER MD ORDER. NO S/S ACUTE DISTRESS NOTED OR REPORTED AT THIS TIME. WILL CONT TO MONITOR FOR ANY CHANGES IN CONDITION.
[2019-05-05 06:55] VITALS: BP 117/51
[2019-05-05 08:57] LABS: GLYCOHEMOGLOBIN (HGB A1C) 7.6 % (4.8-5.6)
--- NOTE | 2019-05-05 09:02 | HC ---
[facility] [place] [address] CONSULTATION Name: ALBERTO BARBOZA Room #: 450- ADM IN M.R.#: [id number] Admission: 05/04/19 Attend Phys: Jerad Griffith MD Discharge: Date of : 54 Report #: [id number] THIS REPORT FOR: //name// CC: Jerad Griffith Physician staff RUSLANJAYA LEBLANC DATE OF SERVICE: 05/04/2019 ENDOCRINE CONSULTATION NOTE CONSULTING PHYSICIAN: Dr. Griffith. REASON FOR CONSULTATION: Uncontrolled type 2 diabetes mellitus. HISTORY OF PRESENT ILLNESS: This is a 69-year-old female patient whose medical background is significant for multiple medical issues including type 2 diabetes mellitus, end-stage renal disease, requiring hemodialysis, extensive coronary artery disease, status post CABG, left AKA with congestive heart failure. The patient presented to the hospital yesterday with complaints of severe neck pain that has progressed over the prior 2 days. It appears to have been associated with a headache as well. It is worth noting that the patient has had multiple admissions over the past few months, including one that was due to possible flu and she was discharged only 4 days ago. When questioned about her diabetes history, the patient indicates that she has had it for many years and that she is maintained on a regimen of Humalog insulin 14 units t.i.d. a.c. in addition to Lantus insulin 40 units q.p.m. When questioned about the glycemic pattern that she has been witnessing at home, she initially indicated that she has not been monitoring her blood glucose much, but then noted that when she does her blood glucose levels are typically in a good range, but without specifying the pneumatic value of that range. The patient does not have major difficulties with hypoglycemia as per her indication. The patient has had multiple diabetic complications including bilateral diabetic retinopathy, requiring laser surgery, poor eyesight, coronary artery disease, status post CABG in 1998, followed by multiple stent placements since then, as well as end-stage renal disease, requiring hemodialysis for the past year. Also, the patient has significant peripheral neuropathy and is status post left AKA. The patient indicates that she is compliant to her diabetic regimen. REVIEW OF SYSTEMS: [facility] [address] [place] [address] CONSULTATION Name: ALBERTO BARBOZA Room #: 450-P ADM IN M.R.#: [id number] Admission: 05/04/19 Attend Phys: Jerad Griffith MD Discharge: Date of : 54 Report #: [id number] CONSTITUTIONAL: Fatigue, tiredness, but not fever or chills or body weight changes. HEENT: Negative for sinus pain, sinus congestion or ear drainage. PULMONARY: Occasional shortness of breath and cough, but no hemoptysis. CARDIAC: Occasional palpitations, chest discomfort, but not syncope or presyncope. GASTROINTESTINAL: Abdominal discomfort, distention, nausea, but no vomiting. NEUROLOGY: Peripheral neuropathy associated with numbness, tingling and occasional pain, but not seizure activity or frequent headaches. Currently, she is dealing with headaches in association with her neck pain. UROLOGY: Negative for dysuria, hematuria. She has end-stage renal disease, requiring hemodialysis 3 times a week. PSYCHIATRIC: Negative for delusions, hallucinations, but has had issues with depressed mood. Otherwise, review of system is noncontributory other than what is mentioned in HPI. PAST MEDICAL HISTORY: 1. Type 2 diabetes mellitus. 2. Diabetic retinopathy. 3. Peripheral diabetic neuropathy. 4. End-stage renal disease, requiring hemodialysis 3 times a week for the past year. 5. Coronary artery disease, status post 5-vessel bypass surgery in 1998, followed by multiple cardiac stent placements. 6. Peripheral vascular disease, status post lower extremity stent placements and left AKA. 7. Systolic heart failure. 8. Hypertension. 9. Recent affluxion with influenza A. 10. Hyperlipidemia. 11. Osteoarthritis. 12. Obesity. OUTPATIENT MEDICATIONS: Include torsemide 40 mg daily, Imdur 30 mg daily, metoprolol 50 mg daily, prednisone 10 mg daily, albuterol p.r.n. for wheezing, Lantus insulin 40 units q.p.m., Humalog insulin 14 units t.i.d. a.c., Colace 100 mg b.i.d., calcitriol 0.5 mcg twice a week, atorvastatin 40 mg at bedtime, Pletal 100 mg b.i.d., aspirin 81 mg daily, Plavix 75 mg daily, Norvasc 2.5 mg daily. ALLERGIES: No known drug allergies. FAMILY HISTORY: The patient does not have children. SOCIAL HISTORY: She lives alone. She had quit smoking and drinking alcohol [address] [address] CONSULTATION Name: ALBERTO BARBOZA Room #: 450-P [facility] IN M.R.#: [id number] Admission: 05/04/19 Attend Phys: Jerad Griffith MD Discharge: Date of : 54 Report #: [id number] more than 15 years ago. She lives by herself. PHYSICAL EXAMINATION: GENERAL: Pleasant -Malaysian female patient who is not in apparent pain or distress. VITAL SIGNS: Blood pressure is 166/52 mmHg, heart rate is 79 beats per minute, respiration 18 per minute, temperature 36.3 degrees. CONSTITUTIONAL: The patient is sitting upright in bed, appears for the most part comfortable, not in apparent distress. HEENT: Anicteric sclerae. Intact extraocular motions. NECK: Supple, without lymphadenopathy or thyromegaly. CHEST: Noted for moderate air entry bilaterally with scattered rales and rhonchi, but not crackles. HEART: Regular rate and rhythm without murmurs or gallops. ABDOMEN: Soft and lax. No guarding. Active bowel sounds. EXTREMITIES: Lower extremity exam noted for left AKA, right trace ankle edema. No skin breaks or ulcerations. NEUROLOGIC: Awake, alert and oriented to time, place and person. The remainder of her examination is nonfocal other than for peripheral sensory deficits. PSYCHIATRIC: Pleasant, interactive. Normal mood and affect. LABORATORY DATA: Blood glucose values since admission ranged from 132-480 mg/dL. Sodium 134, potassium 5.6, chloride 97, CO2 of 19, anion gap of 18, creatinine 5.1. AST 22, lipase 320, total bilirubin 0.4, calcium 7.0, magnesium 1.8, total protein 7.7, albumin 2.8. Troponin 0.08, total cholesterol 163. This was in June 2018. Total cholesterol 163, triglycerides 116, HDL 46, LDL 94. INR 1.0. White blood count 4.35, hemoglobin 13.3, hematocrit 41.5, platelets 210. TSH 1.47. Hemoglobin A1c in June 2018 was 10.2. ASSESSMENT AND PLAN: 1. Type 2 diabetes mellitus. As noted above, the patient has had a fairly lengthy and complicated course of diabetes mellitus including the manifestation of several devastating end-organ complications to include her end-stage renal disease and extensive coronary artery disease. The patient maintains that she has been somewhat stable on her home based insulin regimen, although she is scant blood glucose data. She has been documented to have severe hyperglycemia since her admission. I believe this might have to do with not receiving Lantus insulin last night as she was going through the commotion of her current admission. That said, I would very much like to allow somewhat of a chance for her usual basal bolus regimen of Lantus insulin 40 units q.p.m., Humalog insulin 14 units t.i.d. a.c., as well as support with Humalog supplemental scale, moderate intensity while we monitor her blood glucose values a.c. and at bedtime. If her blood glucose pattern over the next 24 hours calls for insulin regimen changes and these will be conducted accordingly. Also, I will obtain a hemoglobin A1c to better evaluate her recent overall level of control. 2. End-stage renal disease. The patient has had end-stage renal disease, [address] [address] CONSULTATION Name: ALBERTO BARBOZA Room #: 450-P [facility] IN M.R.#: [id number] Admission: 05/04/19 Attend Phys: Jerad Griffith MD Discharge: Date of : 54 Report #: [id number] requiring hemodialysis for the past year. She is under the care of Dr. Martini who is also following her during this hospital stay. 3. Hyperlipidemia. The patient is maintained on atorvastatin therapy and tolerates it well, she is to continue the current regimen. 4. Coronary artery disease. The patient has extensive heart disease, requiring CABG and multiple stent placements. She is currently on Imdur, Toprol as well as Pletal, this is to continue. 5. Hypertension. The patient's level of blood pressure control has been inadequate since she presented, but this is undergoing active management by Dr. Martini and the primary hospitalist team. I have reviewed the clinical care notes, laboratory data and other pertinent clinical information for this patient for over 35 minutes. I certainly appreciate this consultation by Dr. Griffith. <ELECTRONICALLY SIGNED> By: Lorri Arce MD 05/05/19 0902 [id number] Lorri Arce MD /nt
--- NOTE | 2019-05-05 12:51 | NUR ---
[facility] IN HOME CARE NURSE [employer] INDICATED THAT THEY CAN PROVIDE HOME HEALTH SERVICES UPON DC. SHE ASKED THAT ORDERS BE FAXED TO THEM AND THAT WE NOTIFY THEM ONCE PT IS MEDICALLY STABLE TO DC. PT WILL NEED TRANSPORT HOME. CM TO FOLLOW INDICATED WITH DC PLANNING.
[2019-05-05 14:39] VITALS: BP 166/52
--- NOTE | 2019-05-05 14:41 | NUR ---
CARE TEAM INDICATED WE ARE STILL AWAITING NEUROSURGEON CONSULT OF THIS NOTE. DEPENDING ON THEIR FINDINGS PT MAY BE MEDICALLY STABLE TO DISCHARGE HOME THIS DAY. PT IS TO HAVE HOME HEALTH THROUGH HER HOME [facility] PROVIDER THE WHOLE PERSON. ONCE ORDERS ARE COMPLETED THEY WILL NEED TO BE FAXED TO ATTN: [facility]. PT IS TO RESUME DIALYSIS SERVICES AT [facility]. PT WILL NEED TRANSPORT HOME ARRANGED. PT DOESN'T HAVE HER WHEELCHAIR HERE. [facility] WILL NEED TO BE CALLED AT . THEY WILL NEED HER ADDRESS, HT., WT., THAT SHE NEEDS A WHEELCAHIR AND THAT THERE IS ELEVATOR ACCESS TO HER APARTMENT NO STEPS. PLEASE CALL [facility] AND NOTIFY HER OF PT'S DISCHARGE HOME . PT WILL CONTACT THEM TO RESUME HER HOME AND COMMUNITY BASED SERVICES.
[2019-05-05 15:13] VITALS: BP 123/68
[2019-05-05 19:16] VITALS: BP 103/53
--- NOTE | 2019-05-05 20:51 | NUR ---
PT CONTINUES TO REPORT PAIN IN HER NECK. STATES THAT "THE FLEXERIL IS REALLY THE ONLY THING THAT HELPS THE PAIN." PT EXPRESSED CONCERNS THAT SHE WOULD NOT HAVE A PRESCRIPTION GIVEN FOR DISCHARGE. INFORMATION PASSED IN REPORT. PATIENT HAD DECREASED APPETITE THIS SHIFT AND DECLINED INSULIN ON A FEW OCCASIONS. BLOOD GLUCOSE MONITORING CONTINUED. FALL PRECAUTIONS IN PLACE.
--- NOTE | 2019-05-06 04:03 | NUR ---
PT AOX4, LETHARGIC DURING ASSESSMENT. PT DENIES PAIN AND DISCOMFORT AT THIS TIME. PT HAS PRN PO APAP Q4HR, PRN PO FLEXERIL Q8HR, PRN IV MORPHINE Q4HR, AND PRN PO OXYCODONE Q6HR. PT REPORTS DIFFICULTY SLEEPING THE LAST FEW NIGHTS. RECEIVED ORDER FOR X1 MELATONIN. PT OBSERVED RESTING WITHOUT INTERRUPTION OR OBSERVATION OF PAIN OR SOA. ENCOURAGED PT TO NOTIFY STAFF FOR ALL NEEDS. CALL LIGHT WITHIN REACH, BED ALARM ON, BED IN LOWEST POSITION. WILL CONTINUE TO MONITOR.
[2019-05-06 07:21] VITALS: BP 121/63
--- NOTE | 2019-05-06 14:12 | NUR ---
CARE TEAM INDICATED THATPT IS MEDICALLY STABLE TO DISCHARGE HOME THIS DAY. PT IS TO HAVE HOME HEALTH THROUGH HER HOME [facility] COMMUNITY [facility] SERV[facility] PROVIDER THE WHOLE PERSON. ONCE ORDERS ARE COMPLETED THEY WILL NEED TO BE FAXED TO ATTN: [facility]. PT IS TO RESUME DIALYSIS SERVICES AT [facility]. CM SPOKE WITH PT AND SHE WILL HAVE HER SISTER PICK HER UPON AND TRANSPORT HER HOME. CM AWAITING FINAL ORDERS TO FAX TO [facility]. NO OTHER CM INTERVENTION INDICATED CASE CLOSED.
[2019-05-06] MEDS ORDERED: FLEXERIL PO (14:59)
--- NOTE | 2019-05-06 16:13 | NUR ---
Assumed pt care this am, pt was in dialysis for the whole morning. VS stable, pt refused to eat her meals even if her blood sugars would drop stating " i dont like the food here" pt agredd to take crakers, penutbutter and iced tea. Cervical brace ordered, POC followed no signs or verbalizations of distress have been noted. DC instructions given, IV removed, pt was piciked up by the pts sister.
== END 2019-05-06 16:17 | disposition home health service (06) | DRG 551 ==
LOC: ER 16:17 → EROBS 05-04 02:24 → 4W 05-04 02:24
PROVIDERS: Emergency Medicine; Internal Medicine; Nurse Practitioner Family; ADMIT Internal Medicine
PROC: 5A1D70Z Performance of Urinary Filtration, Intermittent, Less than 6 Hours Per Day (ICD-10-PCS; principal; 2019-05-06)
DX: M50.93 Cervical disc disorder, unspecified, cervicothoracic region (principal); N18.6 End stage renal disease; I50.22 Chronic systolic (congestive) heart failure; I13.2 Hypertensive heart and chronic kidney disease with heart failure and with stage 5 chronic kidney disease, or end stage renal disease; M48.02 Spinal stenosis, cervical region; E11.51 Type 2 diabetes mellitus with diabetic peripheral angiopathy without gangrene; E11.22 Type 2 diabetes mellitus with diabetic chronic kidney disease; I25.10 Atherosclerotic heart disease of native coronary artery without angina pectoris; E11.42 Type 2 diabetes mellitus with diabetic polyneuropathy; E78.5 Hyperlipidemia, unspecified; M19.90 Unspecified osteoarthritis, unspecified site; E66.9 Obesity, unspecified; M48.04 Spinal stenosis, thoracic region; M51.24 Other intervertebral disc displacement, thoracic region; M50.221 Other cervical disc displacement at C4-C5 level; N94.9 Unspecified condition associated with female genital organs and menstrual cycle; Z95.1 Presence of aortocoronary bypass graft; Z95.5 Presence of coronary angioplasty implant and graft; Z95.820 Peripheral vascular angioplasty status with implants and grafts; Z89.612 Acquired absence of left leg above knee; Z99.2 Dependence on renal dialysis; Z87.891 Personal history of nicotine dependence; Z79.899 Other long term (current) drug therapy; Z79.4 Long term (current) use of insulin; Z68.34 Body mass index [BMI] 34.0-34.9, adult; Z82.49 Family history of ischemic heart disease and other diseases of the circulatory system
CPT/HCPCS: 10040; 32100

== ENCOUNTER 2019-10-21 02:32 | Inpatient (IN) | payer OTHER ==
[~2019-10-21] VITALS: Ht 160 cm; Wt 90.7 kg
[2019-10-21] VITALS (8 sets, daily range): BP systolic 108–173; BP diastolic 36–101
--- NOTE | ~2019-10-21 | HC ---
[facility] [place] [address] CONSULTATION Name: ALBERTO BARBOZA Room #: 349-I ADM IN M.R.#: [id number] Admission: 10/21/19 Attend Phys: Jerad Griffith MD Discharge: Date of : 54 Report #: [id number] THIS REPORT FOR: cc: MARTA - Family physician unknown MARTA - Family physician unknown Lorri Arce MD ~ CC: MARTA unknown Jerad Griffith DATE OF SERVICE: 10/21/2019 ENDOCRINE CONSULTATION NOTE CONSULTING PHYSICIAN: Dr. Stout. REASON FOR CONSULTATION: Uncontrolled type 2 diabetes mellitus. HISTORY OF PRESENT ILLNESS: This is a 69-year-old female patient whose medical background is significant for multiple medical issues including type 2 diabetes mellitus, end-stage renal disease, hypertension, hyperlipidemia, peripheral vascular disease, status post left AKA as well as CAD. The patient presented to [facility] due to respiratory distress and required support with BiPAP when she had first arrived here. This seems to have started a few days prior to her presentation. However, she has not experienced fever, chills, nausea, vomiting or loss of consciousness. The patient notes that she has been a diabetic for many years and that she is maintained on a combination of Lantus insulin 40 units at night in addition to Humalog insulin 14 units with meals that she takes mostly twice a day. She indicated that she does not monitor her blood glucose much at all, but does not appreciate issues with hypoglycemia. The patient notes issues pertaining to cataracts, but not retinopathy. She is also known to have CAD with an extensive history involving a CABG and then stent placement starting over 20 years ago. Also, she is known to have significant peripheral arterial disease, marked by left AKA as well as status post femoral popliteal bypass surgery. REVIEW OF SYSTEMS: CONSTITUTIONAL: Fatigue, tiredness, but not fever or chills or body weight changes. HEENT: Negative for sore throat, sinus pain, ear drainage. PULMONARY: Shortness of breath and intermittent cough, but no hemoptysis. CARDIAC: No chest pain, palpitations, syncope or presyncope, but noted for dyspnea on exertion. GASTROINTESTINAL: Occasional abdominal discomfort and nausea, but no vomiting. NEUROLOGY: Negative for loss of consciousness, severe frequent headaches or [facility] [address] [place] [address] CONSULTATION Name: ALBERTO BARBOZA Room #: 349-I ADM IN .R.#: [id number] Admission: 10/21/19 Attend Phys: Jerad Griffith MD Discharge: Date of : 54 Report #: [id number] seizure activity. Otherwise, review of systems noncontributory other than those mentioned in HPI. PAST MEDICAL HISTORY: 1. Type 2 diabetes mellitus. 2. Cataracts. 3. Peripheral diabetic neuropathy. 4. End-stage renal disease, on hemodialysis 3 times a week for the past year. 5. Coronary artery disease, status post CABG in 1998 and then status post stent placement. 6. Peripheral arterial disease, status post left AKA and status post femoral popliteal bypass surgery. 7. Obesity. 8. Hyperlipidemia. 9. Hypertension. 10. Osteoarthritis. OUTPATIENT MEDICATIONS: Include: 1. Lantus insulin 40 units q.p.m. 2. Humalog 14 units t.i.d. a.c. 3. Colace 100 mg b.i.d. 4. Percocet q.i.d. p.r.n. 5. Calcitriol 0.5 mcg twice a week. 6. Atorvastatin 40 mg at bedtime. 7. Pletal 100 mg b.i.d. 8. Aspirin 81 mg daily. 9. MiraLax 17 grams. 10. Plavix 75 mg daily. 11. Norvasc 2.5 mg daily. 12. Albuterol q. 4-6 hours p.r.n. 13. Metoprolol 50 mg daily. 14. Imdur 30 mg daily. 15. Torsemide 40 mg daily. ALLERGIES: No known drug allergies. FAMILY HISTORY: Noncontributory. SOCIAL HISTORY: The patient denies use of tobacco, alcohol or illicit drugs. PHYSICAL EXAMINATION: GENERAL: Pleasant -Somali female patient who appears lethargic, but not in apparent distress. VITAL SIGNS: Blood pressure is 154/90 mmHg, respiration rate 20 per minute, heart rate 73 per minute, temperature 36.5 degrees Celsius. CONSTITUTIONAL: The patient is sitting upright in bed, appears lethargic, but [facility] [address] [facility] [place] [address] CONSULTATION Name: ALBERTO BARBOZA Room #: 349-I [facility] IN M.R.#: [id number] Admission: 10/21/19 Attend Phys: Jerad Griffith MD Discharge: Date of : 54 Report #: [id number] not in apparent pain or distress. HEENT: Anicteric sclerae. Intact extraocular motions. NECK: Supple, without JVD, no thyromegaly. CHEST: Noted for moderate entry bilaterally with scattered rales, rhonchi, but not wheezes or crackles. HEART: Regular rate and rhythm without murmurs or gallops. ABDOMEN: Soft, lax. No guarding. EXTREMITIES: Lower extremity exam is noted for left AKA, right ankle edema. NEUROLOGIC: Awake, alert and oriented to time, place and person. PSYCHIATRIC: Pleasant, interactive. Normal mood and affect. LABORATORY DATA: Blood glucose on arrival this morning was 239 and was most recently at 178 mg/dL. Sodium 134, potassium 4.9, chloride 97, CO2 of 25, anion gap 12, BUN 49, creatinine 6.3, AST 22, lipase 320, total bilirubin 0.4, direct bilirubin 0.1, calcium 7.9, phosphorus 3.8, magnesium 1.8, alkaline phosphatase 126, ALT 29, total protein 7.7, albumin 2.8, EGFR 8. Lactic acid is 0.9. Troponin is negative. BNP is __. CRP is 139.9. White blood count is 15.4, hemoglobin 12.6, hematocrit 38.7, and platelets 276. Hemoglobin A1c in April was 7.6. ASSESSMENT AND PLAN: 1. Type 2 diabetes mellitus. As noted above, the patient has had longstanding type 2 diabetes mellitus that is insulin-dependent. This seems to have been associated with multiple end-organ complications as represented by her end-stage renal disease and significant vascular disease. The patient has been admitted only several hours ago and my inclination would be to utilize reduced version of her current insulin intake on the assumption that the dietary regulation expected here and reported minimal p.o. intake with account for lower insulin needs. That said I would start with Lantus insulin at 30 units at bedtime in addition to Humalog insulin taken at 8 units with meals in addition to support with Humalog supplemental scale low intensity. Blood glucose monitoring will commence a.c. and at bedtime and further therapeutic adjustments will be made accordingly. 2. Hypertension. The patient's level of blood pressure control is marginal at this point in time. Dr. Martini is following. I will defer further adjustments in this regard to his discretion. 3. Hyperlipidemia. The patient is currently maintained on atorvastatin therapy and tolerates it well, she is to continue with the same. I certainly appreciate this consultation. By: [id number] [id number] Lorri Arce MD /nt
[~2019-10-21 02:32] MED LIST changes: +FLEXERIL PO
[2019-10-21 02:57] LABS: ABSOLUTE NEUTROPHILS 13.4 thou/uL (1.4-8.2); BASOPHILS 0.7 % (0.0-2.0); EOSINOPHILS 1.4 % (0.0-3.0); HEMATOCRIT 38.7 % (37.0-47.0); HEMOGLOBIN 12.6 gm/dL (12.0-15.0); LYMPHOCYTES 7.8 % (24.0-44.0); MCH 31.9 pg (26.0-34.0); MCHC 32.7 g/dL (28.0-37.0); MCV 97.7 fL (80.0-100.0); MONOCYTES 3.2 % (1.0-8.0); PLATELET COUNT 276 thou/uL (150-400); POLYS 86.9 % (36.0-66.0); RBC 3.96 mil/uL (4.20-5.00); RDW 15.9 % (10.5-14.5); WBC 15.4 thou/uL (4.0-11.0)
[2019-10-21 03:10] LABS: ANION GAP 12 mmol/L (7-16); BUN 49 mg/dL (7-18); CALCIUM 7.9 mg/dL (8.5-10.1); CHLORIDE 97 mmol/L (98-107); CO2 25 mmol/L (21-32); CREATININE 6.3 mg/dL (0.6-1.0); GLUCOSE 328 mg/dL (74-106); POTASSIUM 4.9 mmol/L (3.5-5.1); SODIUM 134 mmol/L (136-145)
[2019-10-21 03:18] LABS: TROPONIN-I <0.06 ng/mL (<0.06)
[2019-10-21 03:43] LABS: BE(vivo) -2.3 mmol/L (-2 to +3); HCO3 23.1 mmol/L (22.0-26.0); PCO2 42.5 mmHg (35.0-45.0); PO2 157.8 mmHg (80.0-100.0); pH 7.354 (7.360-7.450)
[2019-10-21 03:44] LABS: sO2 98.9 % (92.0-98.0)
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
--- NOTE | 2019-10-21 13:19 | NUR ---
Nutrition: Received RD consult for 'diabetic, renal, heart healthy diet.' Pt's diet most recently just changed to Renal only (which encompasses heart healthy as it is low in Na). Pt is being tested for COVID; results pending. Here for hypoxia and to r/o COVID. Attempted to phone pt, but unsuccessful, no answer. Hx includes L AKA, ESRD on hemodialysis MWF, CAD s/p CABG x 5 vessels, heart failure, and diabetes. Glucose high overnight at 328 mg/dl, K+ WNL 4.9, no phos level checked. Last A1c 7.6% per 04/2019. Will follow up early next week on 10/23 or 10/24 once COVID results known to reattempt education if appropriate.
--- NOTE | 2019-10-21 13:41 | NUR ---
informed patient of order for new covid swab, patient states that she refuses another swabto be done, states she has already had two swabs done and will not have another one. called benji mosley to make aware.
--- NOTE | 2019-10-21 14:29 | NUR ---
SPOKE WITH RAJANI AVILEZ RN STATES SHE SPOKE WITH DR. SUÁREZ STATES TO KEEP IN ISOLATION UNTIL TOMORROW AM AND WILL CTM FOR IMPROVEMENT AND THAT PATIENT REMAINS AFEBRILE.
--- NOTE | 2019-10-21 15:53 | NUR ---
ASSUMED PATIENT CARE THIS AM AT APPROXIMATELY 0700. PATIENT ABLE TO COME OFF BIPAP AND IS NOW ON O2NC AT 2L. PATIENT RECIEVED DIALYSIS THIS SHIFT. PATIENT FIRST COVID TEST NEGATIVE AND SECOND ONE ORDERED. PATIENT REFUSED SECOND SWAB, STATES SHE ALREADY GOT SWABBED IN ER AND WHEN SHE ARRIVED TO UNIT AND DOES NOT WANT TO DO IT AGAIN, MADE RAJANI AVILEZ AND DR. SUÁREZ AWARE AND TEST CANCELLED. PATIENT TO STAY IN ENHANCED PRECAUTIONS UNTIL TOMORROW AND MD WILL REASSESS.
--- NOTE | 2019-10-21 16:23 | EKG ---
[facility] [place] [address] ELECTROCARDIOGRAM REPORT Name: ALBERTO BARBOZA Room #: 349-I ADM IN M.R.#: [id number] Admission: 10/21/19 Attend Phys: Jerad Griffith MD Discharge: Date of : 54 Report #: [id number] THIS REPORT FOR: cc: MARTA - Family physician unknown FAM - Family physician unknown Ethan Huerta MD [facility] ~ THIS REPORT FOR: //name// [facility] ED Test Date: 2019-10-21 Test Time: 03:46:15 Pat Name: ALBERTO BARBOZA Department: Room: [facility] Gender: F Remarketing Manager: HANNAH : 1950 Requested By: Anival Anderson Order Number: [id number] MD: Ethan Huerta Measurements Intervals [place] Rate: 80 P: 42 OR: 183 QRS: -22 QRSD: 119 T: 142 QT: 425 QTc: 491 Interpretive Statements Sinus rhythm Poor R wave progression Nonspecific intraventricular conduction delay Nonspecific ST and T wave abnormality Compared to ECG 04/23/2019 12:56:03 Atrial premature complex(es) no longer present Electronically Signed On 10-21-2019 16:23:03 CDT by Ethan Huerta [email or web address] <ELECTRONICALLY SIGNED> By: Ethan Huerta MD, [facility] 10/21/19 1623 0346 [id number] Ethan Huerta MD, [facility] /EPI
--- NOTE | 2019-10-21 20:47 | HC ---
[facility] [place] [address] CONSULTATION Name: ALBERTO BARBOZA Room #: 349-I ADM IN M.R.#: [id number] Admission: 10/21/19 Attend Phys: Jerad Griffith MD Discharge: Date of : 54 Report #: [id number] THIS REPORT FOR: cc: [facility] - Family physician unknown MARTA - Family physician unknown Heena Martini MD ~ CC: MARTA unknown Jerad Griffith DATE OF SERVICE: 10/21/2019 REASON FOR CONSULTATION: End-stage renal disease. REASON FOR PRESENTATION: Shortness of breath. HISTORY OF PRESENT ILLNESS: This is a 69-year-old who is well known to me. She is in end-stage renal disease, maintained on hemodialysis every Thursday, Thursday and Thursday. She is known to have extensive past medical history with cardiomyopathy, status post CABG; status post fem-pop bypass in 2019 on the right side, complicated by wound dehiscence and infection, this is well healed now. She presented reporting that she has been having shortness of breath. EMS were called and the patient was found to have an O2 sat of 90% on room air. She reported no chest pain. She denies any fever or chills. She was found to have leukocytosis. She is being ruled out for COVID-19. Chest x-ray was consistent with bilateral pulmonary infiltrates and pulmonary edema. I was consulted to manage her end-stage renal disease. As stated above, from the renal perspective, she is in end-stage renal disease, maintained on hemodialysis every Thursday, Thursday and Thursday. She is utilizing a left-sided AV fistula. PAST MEDICAL HISTORY: 1. End-stage renal disease. 2. Status post coronary artery bypass graft. 3. Coronary artery disease. 4. Peripheral vascular disease, status post left above-knee amputation. 5. Left-sided AV fistula. 6. Cardiomyopathy. 7. Status post fem-pop bypass on the right side. REPORTED MEDICATIONS: 1. Lispro insulin 14 units with meals. 2. 40 units glargine insulin at bedtime. 3. Calcitriol. 4. Atorvastatin. 5. Aspirin. 6. Plavix. 7. [address] [facility] [address] [place] [address] CONSULTATION Name: ALBERTO BARBOZA Room #: 349-I ADM IN .R.#: [id number] Admission: 10/21/19 Attend Phys: Jerad Griffith MD Discharge: Date of : 54 Report #: [id number] ALLERGIES: None. SOCIAL HISTORY: She lives in a penitentiary facility. No drug or alcohol abuse. FAMILY HISTORY: Significant for diabetes mellitus and hypertension. REVIEW OF SYSTEMS: GENERAL: No fever or chills. CARDIOVASCULAR: As per the history of present illness. PULMONARY: As per the history of present illness. GASTROINTESTINAL: No nausea or vomiting. SKIN: No rash or ulcerations. NEUROLOGICAL: Occasional headache, but no dizziness, no syncope. PHYSICAL EXAMINATION: VITAL SIGNS: Blood pressure is 173/70, temperature is 36.6, pulse rate is 73. HEAD AND NECK: No jugular venous distention. CHEST: Bilateral crackles. CARDIOVASCULAR: No rub detected. ABDOMEN: Soft. EXTREMITIES: Lower extremities, mild right lower extremity edema. Status post left AKA. LABORATORY DATA: Reviewed. Sodium is 134, potassium is 4.9, BUN is 49, creatinine is 6.3. White blood cell count is 15.4, hemoglobin is 12.6. Blood cultures are pending. Chest x-ray consistent with pulmonary edema. COVID-19 PCR is pending. ASSESSMENT AND PLAN: 1. End-stage renal disease. 2. Pulmonary edema. 3. Patient under investigation. 4. Leukocytosis. 5. Arrange for the patient to have her usual hemodialysis with aggressive ultrafiltration today. Follow current cultures and COVID-19 PCR. 6. The patient has major issues with noncompliance, continue to counselor at law. 7. Continue home blood pressure and blood sugar medication. <ELECTRONICALLY SIGNED> By: Heena Martini MD 10/21/197 5 9 Heena Martini MD /nt
[2019-10-22 05:05] VITALS: BP 152/72
[2019-10-22 06:40] LABS: ABSOLUTE NEUTROPHILS 4.9 thou/uL (1.4-8.2); BASOPHILS 0.5 % (0.0-2.0); EOSINOPHILS 4.1 % (0.0-3.0); HEMATOCRIT 34.5 % (37.0-47.0); HEMOGLOBIN 11.4 gm/dL (12.0-15.0); LYMPHOCYTES 14.3 % (24.0-44.0); MCH 32.5 pg (26.0-34.0); MCHC 33.1 g/dL (28.0-37.0); MCV 98.4 fL (80.0-100.0); MONOCYTES 7.3 % (1.0-8.0); PLATELET COUNT 260 thou/uL (150-400); POLYS 73.8 % (36.0-66.0); RBC 3.51 mil/uL (4.20-5.00); RDW 15.5 % (10.5-14.5); WBC 6.7 thou/uL (4.0-11.0)
[2019-10-22 07:12] LABS: POTASSIUM 4.3 mmol/L (3.5-5.1)
--- NOTE | 2019-10-22 07:56 | NUR ---
ASSUMED CARE AT 1900, ASSESSMENT COMPLETED. PT REPORTS SOME BACK PAIN, RELIEVED BY REPOSITIONING IN BED. REPORTS BREATHING IS IMPROVED AND IS SATTING WELL ON 2L O2. HAS BEEN SR WITH BBB OVERNIGHT. PLAN FOR DIALYSIS THIS AM. NO OTHER CONCERNS, SHIFT REPORT GIVEN O700.
[2019-10-22 08:31] VITALS: BP 153/77
--- NOTE | 2019-10-22 14:50 | NUR ---
SPOKE WITH RAJANI AVILEZ RN. ORDER RECIEVED TO TAKE PATIENT OFF ISOLATION TODAY SINCE SHE HAS NOT HAD ANY ADVERSE S/S OVERNIGHT. CALLED CURB MACHINE OPERATOR TO MAKE AWARE D/C ISOLATION.
[2019-10-22 15:22] VITALS: BP 158/133
--- NOTE | 2019-10-22 19:53 | NUR ---
ASSUMED PATIENT CARE THIS MORNING AT APPROXIMATELY 0700. PATIENT RECEIVING DIALYSIS AND 3.5L PULLED, PATIENT TOLERATED DIALYSIS WELL. O2 SAT STABLE ON 2LNC. NO COMPLAINTS OF SOB THIS SHIFT. PATIENT GIVEN BED BATH. TOLERATING DIET. D/C'D ISOLATION THIS SHIFT.
[2019-10-22 20:15] VITALS: BP 109/50
[2019-10-23 01:06] LABS: GLYCOHEMOGLOBIN (HGB A1C) 11.6 % (4.8-5.6)
[2019-10-23 04:00] VITALS: BP 132/77
--- NOTE | 2019-10-23 04:12 | NUR ---
Patient progressing well towards outcome goals. Oxygenation 100% sat with 2L/NC. Slept well after oral pain medication. No void tonight. High fall risks, fall precautions in place. Call light not working, work order in place. Patient aware to call the desk or use call [place] for needs.
[2019-10-23 07:33] VITALS: BP 122/55
[2019-10-23 13:15] VITALS: BP 133/51
--- NOTE | 2019-10-23 13:52 | NUR ---
TO UNIT BY FROM [facility]. COVID TEST NEGATIVE. ORIENTED TO UNIT. SR PER TELE. DENIES CP. WILL CONTINUE TO FOLLOW.
--- NOTE | 2019-10-23 14:09 | NUR ---
assumed patient care at approximately 0700. meds and assessments as documented. no resp distress noted this shift. patient transfered off unit to ccu because of covid negative status. all patient belongings taken with patient, surveillance system monitor removed and returned to station.
[2019-10-23 15:15] VITALS: BP 133/51
[2019-10-23 19:48] VITALS: BP 120/37
[2019-10-24 04:00] VITALS: BP 135/54
--- NOTE | 2019-10-24 05:59 | NUR ---
TOOK OVER CARE OF PATIENT AT MIDNIGHT. PATIENT SLEEPING IN CHAIR WITH FEET ELEVATED DURING SHIFT. USED STANDING SCALE TO WEIGH PATIENT. PATIENT HAD LOST OVER 5 LBS SINCE LAST WEIGHT WHICH WOULD CORROLATE TO DIALYSIS. PATIENT SCHEDULED FOR ANOTHER DIALYSIS TREATMENT TODAY AFTER WHICH, SHE MAY BE ABLE TO RETURN TO ASSISTED LIVING. FALL PRECAUTIONS IN PLACE DURING SHIFT.
[2019-10-24 08:10] VITALS: BP 146/64
--- NOTE | 2019-10-24 11:13 | 2DMMODE ---
[facility] [address] [place] [address] 2 D/M-MODE ECHOCARDIOGRAM Name: ALBERTO BARBOZA Room #: 208-P ADM IN M.R.#: [id number] Admission: 10/21/19 Attend Phys: Irvin Vasquez MD Discharge: Date of : 54 Report #: [id number] THIS REPORT FOR: cc: FAM - Family physician unknown FAM - Family physician unknown Demario Squires MD ~ APPROVED REPORT Study performed: 10/24/2019 10:32:14 EXAM: Comprehensive 2D, Doppler, and color-flow Echocardiogram Patient Location: Bedside Room #: 208 Status: routine BSA: 1.93 HR: 80 bpm BP: 135/54 mmHg Rhythm: NSR Other Information Study Quality: Poor/no apical windows. Technically limited study due to obesity, patient tilted to the right. Indications Respiratory distress, CHF. Hx: CABG, stents, CHF, HTN, HLP, PVD, ESRD. 2D Dimensions IVSd: 12.92 (7-11mm) LVOT Diam: 20.04 (18-24mm) LVDd: 55.55 mm PWd: 9.70 (7-11mm) Ascending Ao: 34.08 (22-36mm) LVDs: 46.46 (25-40mm) Aortic Root: 33.73 mm Aortic Valve AoV Peak Carlos.: 1.15 m/s AO Peak Gr.: 5.33 mmHg LVOT Max P.15 mmHg LVOT Max V: 0.54 m/s ARISTIDES Vmax: 1.47 cm2 Mitral Valve E/A Ratio: 0.7 MV Decel. Time: 147.97 ms [facility] [address] [place] [address] 2 D/M-MODE ECHOCARDIOGRAM Name: ALBERTO BARBOZA Room #: 208-P ADM IN M.R.#: [id number] Admission: 10/21/19 Attend Phys: Irvin Vasquez MD Discharge: Date of : 54 Report #: [id number] MV E Max Carlos.: 0.42 m/s MV A Carlos.: 0.61 m/s MV PHT: 42.91 ms IVRT: 124.57 ms Pulmonary Valve PV Peak Carlos.: 1.15 m/s PV Peak Gr.: 5.33 mmHg Tricuspid Valve RAP Estimate: 5.00 mmHg Left Ventricle The left ventricle is normal size. Mild septal hypertrophy is present. Left ventricular systolic function is moderate to severely decreased. LVEF is 30-35%. Mild diastolic dysfunction is present (impaired relaxation pattern). Right Ventricle The right ventricle is normal size. The right ventricular systolic function is normal. Atria Both atria appear mildly dilated. Aortic Valve Aortic valve is moderately calcified. No aortic regurgitation is present. Mild aortic stenosis. ARISTIDES by continuity 1.5cm2. Mitral Valve The mitral valve is normal in structure. There is no mitral valve regurgitation noted. Tricuspid Valve Tricuspid valve is not well visualized. Unable to assess PA pressure. Pulmonic Valve Pulmonic valve is not well visualized. Great Vessels The aortic root is normal in size. The ascending aorta is normal in size. IVC is normal in size and collapses >50% with inspiration. Pericardium There is no pericardial effusion. [facility] [address] [place] [address] 2 D/M-MODE ECHOCARDIOGRAM Name: ALBERTO BARBOZA Room #: 208-[facility] IN ..#: [id number] Admission: 10/21/19 Attend Phys: Irvin Vasquez MD Discharge: Date of : 54 Report #: [id number] <Conclusion> The left ventricle is normal size. LVEF is 30-35%. Both atria appear mildly dilated. Aortic valve is moderately calcified. Mild aortic stenosis. ARISTIDES by continuity 1.5cm2. The mitral valve is normal in structure. Tricuspid valve is not well visualized. Unable to assess PA pressure. Pulmonic valve is not well visualized. There is no pericardial effusion. <ELECTRONICALLY SIGNED> By: Demario Squires MD 10/24/19 1112 1112 1112 Demario Squires MD /INF
[2019-10-24 12:05] VITALS: BP 126/59
[2019-10-24 16:40] VITALS: BP 151/64
--- NOTE | 2019-10-24 19:31 | NUR ---
RECEIVED PT'S CARE AROUND 0735; PT. ON CHAIR; ALERT; PER DIALYSIS NURSE PT. NEEDS TO BE BACK TO BED; BACK TO BED; DIALYSIS DURING THE AM; HOLD AM MEDICATION BUT HEPARIN; AM MEDICATION GIVEN AFTER DIALYSIS; PER REPORT 3L TAKEN OFF; PT. C/O BACK PAIN; PRN PAIN MEDICATION GIVEN; RE-ASSESSMENT PT. ST DECREASE PAIN; POOR APPETITE; INSULIN HOLD DURING AM; EDUCATED ABOUT THE IMPORTANCE OF EATING; NO ANSWER BACK; AFTER DIALYSIS C/O ITCHING; ST. "IT IS BECAUSE I TOOK ALL MY MEDICATIONS TOGETHER"; REQUESTED "BENADRYL"; PHYSICIAN NOTIFIED; ORDERS ON PLACED AROUN 1800; MEDICATION GIVEN; SCHEDULED INSULIN GIVEN; ASSESSMENT CHARGED; FOLLOWING POC; PASSED ON REPORT;
[2019-10-24 21:30] VITALS: BP 99/39
--- NOTE | 2019-10-25 05:25 | NUR ---
ASSUMED CARE OF PATIENT AT 1900. PATIENT IRRITABLE AT HS ADMINISTRATION. WAS UPSET ABOUT "ALL THE DAMN PILLS SHE TAKES". TALKED WITH PATIENT AND SHE EVENTUALLY TOOK HS MEDICATION ORDERED. PATIENT STATED SHE WAS TIRED FROM DIALYSIS. PATIENT RESTED WELL THROUGH THE NIGHT WITH NO FURTHER ISSUES.
[2019-10-25 06:15] VITALS: BP 153/49
[2019-10-25 08:15] VITALS: BP 135/76
--- NOTE | 2019-10-25 10:49 | NUR ---
Met with patient. She resides [facility]. She utilizes a wc at home and can transfer herself to/from . She has elevator in her building. She rec aide services and Rn for medication management through [facility]. [phone]. She dializes MWF at [facility], [facility] assists with transport. She has supportive sisters. Patient would be agreeable to HH care. She reports the [facility] can accomadate HH care including therapy. Sp with [facility] once rec orders plan to fax to determine if can accomdate HH at [place]. Patient reports her wc has bad breaks and torn padding. Request script for new wc. Casemgt following for dc planning.
[2019-10-25] MEDS ORDERED: PANTOPRAZOLE SO40 M1 PO (11:11)
[2019-10-25 11:38] LABS: HEMATOCRIT 35.9 % (37.0-47.0); HEMOGLOBIN 12.1 gm/dL (12.0-15.0); MCH 32.5 pg (26.0-34.0); MCHC 33.7 g/dL (28.0-37.0); MCV 96.6 fL (80.0-100.0); RBC 3.71 mil/uL (4.20-5.00); RDW 15.7 % (10.5-14.5)
[2019-10-25 11:51] LABS: CREATININE 5.5 mg/dL (0.6-1.0); POTASSIUM 4.3 mmol/L (3.5-5.1)
[2019-10-25 12:00] VITALS: BP 123/59
[2019-10-25 14:54] VITALS: BP 123/59
[2019-10-25 15:20] VITALS: BP 129/83
[2019-10-27] MEDS ORDERED: DEMADEX20 MG PO (14:34)
[2019-10-27] MEDS ORDERED: NORVASC 2.5 MG2.5 M1 PO (14:34)
[2019-10-27] MEDS ORDERED: CALCITRIOL0.25 MCG PO (14:34)
== END 2019-10-25 17:49 | disposition home health service (06) | DRG 291 ==
LOC: ER 02:32 → 3W 04:08 → EROBS 04:08 → 2N 04:08 → 3W 05:07 → 2N 10-23 13:13
PROVIDERS: Emergency Medicine; Internal Medicine; Nurse Practitioner; ADMIT Hospitalist; ATTEND Hospitalist
PROC: 5A1D70Z Performance of Urinary Filtration, Intermittent, Less than 6 Hours Per Day (ICD-10-PCS; principal; 2019-10-21)
PROC: 5A09357 Assistance with Respiratory Ventilation, Less than 24 Consecutive Hours, Continuous Positive Airway Pressure (ICD-10-PCS; 2019-10-21)
PROC: 5A1D70Z Performance of Urinary Filtration, Intermittent, Less than 6 Hours Per Day (ICD-10-PCS; 2019-10-22)
PROC: 5A1D70Z Performance of Urinary Filtration, Intermittent, Less than 6 Hours Per Day (ICD-10-PCS; 2019-10-24)
DX: I13.2 Hypertensive heart and chronic kidney disease with heart failure and with stage 5 chronic kidney disease, or end stage renal disease (principal); I50.23 Acute on chronic systolic (congestive) heart failure; N18.6 End stage renal disease; J96.21 Acute and chronic respiratory failure with hypoxia; N17.9 Acute kidney failure, unspecified; I16.0 Hypertensive urgency; Z20.828 Contact with and (suspected) exposure to other viral communicable diseases; E78.5 Hyperlipidemia, unspecified; I25.10 Atherosclerotic heart disease of native coronary artery without angina pectoris; E11.51 Type 2 diabetes mellitus with diabetic peripheral angiopathy without gangrene; E11.22 Type 2 diabetes mellitus with diabetic chronic kidney disease; I42.9 Cardiomyopathy, unspecified; Z99.2 Dependence on renal dialysis; Z95.1 Presence of aortocoronary bypass graft; Z95.5 Presence of coronary angioplasty implant and graft; Z90.49 Acquired absence of other specified parts of digestive tract; Z79.899 Other long term (current) drug therapy; Z79.4 Long term (current) use of insulin; Z79.82 Long term (current) use of aspirin; Z79.891 Long term (current) use of opiate analgesic; Z83.3 Family history of diabetes mellitus; Z82.49 Family history of ischemic heart disease and other diseases of the circulatory system; Z89.612 Acquired absence of left leg above knee; Z91.11 Patient's noncompliance with dietary regimen
CPT/HCPCS: 10081; 10879; 32100

== ENCOUNTER 2019-12-26 18:27 | Inpatient (IN) | payer OTHER ==
[~2019-12-26] VITALS: Ht 160 cm; Wt 94.3 kg
[~2019-12-26 18:27] MED LIST changes: +DEMADEX20 MG PO; +NORVASC 2.5 MG2.5 M1 PO; +PANTOPRAZOLE SO40 M1 PO
[2019-12-26 18:52] LABS: ABSOLUTE NEUTROPHILS 6.4 thou/uL (1.4-8.2); BASOPHILS 0.5 % (0.0-2.0); EOSINOPHILS 3.2 % (0.0-3.0); HEMATOCRIT 35.3 % (37.0-47.0); HEMOGLOBIN 11.9 gm/dL (12.0-15.0); LYMPHOCYTES 9.6 % (24.0-44.0); MCH 32.8 pg (26.0-34.0); MCHC 33.6 g/dL (28.0-37.0); MCV 97.5 fL (80.0-100.0); MONOCYTES 7.5 % (1.0-8.0); PLATELET COUNT 235 thou/uL (150-400); POLYS 79.2 % (36.0-66.0); RBC 3.62 mil/uL (4.20-5.00); RDW 15.6 % (10.5-14.5); WBC 8.1 thou/uL (4.0-11.0)
[2019-12-26 18:53] LABS: ANION GAP 10 mmol/L (7-16); BUN 27 mg/dL (7-18); CHLORIDE 101 mmol/L (98-107); CO2 29 mmol/L (21-32); CREATININE 3.6 mg/dL (0.6-1.0); GLUCOSE 189 mg/dL (74-106); POTASSIUM 3.9 mmol/L (3.5-5.1); SODIUM 140 mmol/L (136-145)
[2019-12-26 19:03] LABS: ALBUMIN 3.1 g/dL (3.4-5.0); SGOT 22 U/L (15-37); SGPT 25 U/L (30-65); TOTAL BILIRUBIN 0.4 mg/dL (0.2-1.0); TOTAL PROTEIN 7.8 g/dL (6.4-8.2); TROPONIN-I <0.06 ng/mL (<0.06)
[2019-12-26] MEDS ORDERED: TORSEMIDE20 MG PO (20:51)
[2019-12-26 20:52] VITALS: BP 147/52
[2019-12-26 21:22] VITALS: BP 139/61
[2019-12-26 21:45] VITALS: BP 150/69
[2019-12-27 04:00] VITALS: BP 149/66
[2019-12-27 05:36] LABS: CALCIUM 7.8 mg/dL (8.5-10.1); MAGNESIUM 1.9 mg/dL (1.8-2.4); POTASSIUM 4.1 mmol/L (3.5-5.1)
--- NOTE | 2019-12-27 05:50 | NUR ---
RECEIVED REPORT FROM ANIKET ARRIAGA RN.A/O X 4.PAIN WELL CONTROLLED WITH OXYCODONE.L AKA.POSSIBLE DIALYSIS TODAY.NEPHROLOGY WAS CONSULTED.MONITOR SHOWS SR.POC CONTINUED.
--- NOTE | 2019-12-27 07:39 | EKG ---
[facility] [place] [address] ELECTROCARDIOGRAM REPORT Name: ALBERTO BARBOZA Room #: 208-P ADM IN M.R.#: [id number] Admission: 12/26/19 Attend Phys: Chema Arango Discharge: Date of : 54 Report #: [id number] THIS REPORT FOR: cc: JOVI WALTER MD Physician not on staff Eric Humphreys MD [facility] ~ THIS REPORT FOR: //name// [facility] ED Test Date: 2019-12-26 Test Time: 19:10:43 Pat Name: ALBERTO BARBOZA Department: Room: 208 Gender: F Program Management Specialist: : 1950 Requested By: José Miguel Middleton Order Number: [id number] MD: Eric Humphreys Measurements Intervals [place] Rate: 71 P: 43 CT: 183 QRS: -33 QRSD: 120 T: 177 QT: 466 QTc: 507 Interpretive Statements Sinus rhythm LVH with IVCD and secondary repol abnrm Baseline wander in lead(s) V2 Compared to ECG 10/21/2019 03:46:15 Left ventricular hypertrophy now present Early repolarization now present Poor R-wave progression no longer present ST (T wave) deviation no longer present Electronically Signed On 12-27-2019 7:39:06 CDT by Eric Humphreys [email or web address] <ELECTRONICALLY SIGNED> By: Eric Humphreys MD, [facility] 12/27/19 0739 09 09 Eric Humphreys MD, [facility] /EPI
[2019-12-27 08:02] VITALS: BP 175/81
--- NOTE | 2019-12-27 13:52 | NUR ---
PATIENT'S HOME HEALTH RN, SHAYAN DAIGLE WITH [facility], CALLED TO CHECK ON PATIENT. HER DIRECT LINE IS [phone] AND FAX IS [phone]. PATIENT IS IN DIALYSIS.
[2019-12-27 16:41] VITALS: BP 149/64
--- NOTE | 2019-12-27 16:54 | NUR ---
met with patient who resides in [facility] with elevator. PCP Dr Dipesh Valentino. Patient has left AKA. She utilizes at home and [facility] She has HH care from [facility] [phone]. Patient dializes at [facility] and repors [facility] assists with transport. She has supportive sisters who assist with driving to grocery store. Patient wanted to sleep. Plan to cont to follow for dc planning.
[2019-12-27 20:32] VITALS: BP 118/59
--- NOTE | 2019-12-28 03:10 | NUR ---
ASSUMED CARE OF PATIENT AT 1900. PATIENT MAINTAINING ADEQUATED OXYGEN SATURATION ON ROOM AIR. PATIENT DENIES PAIN AND SOA AT ASSESSMENT. PATIENT CURRENTLY RESTING WITH EYES CLOSED IN RECLINER. PATIENT APPEARS TO BE PROGRESSING TOWARDS GOALS.
[2019-12-28 05:00] VITALS: BP 137/58
[2019-12-28 06:21] LABS: CALCIUM 7.9 mg/dL (8.5-10.1); CREATININE 4.4 mg/dL (0.6-1.0); POTASSIUM 4.4 mmol/L (3.5-5.1)
[2019-12-28 08:18] VITALS: BP 159/75
--- NOTE | 2019-12-28 09:53 | NUR ---
WOUND CONSULT; THERE IS AN AREA TO THE RIGHT PLANTAR SURFACE OF THE GREAT TOE. DISCOLORED AND HARDENED/CALLOUSED. THE PATIENT HAS HAD AN AMPUTATION TO THE LLE. RECOMMENDATIONS; 1-CONSULT DR SUNDAY GUZMAN 2-PAINT WITH BETADINE FOR NOW. DISCUSSED WITH FAROOQ
[2019-12-28 12:09] VITALS: BP 148/57
[2019-12-28 16:37] VITALS: BP 137/64
--- NOTE | 2019-12-28 16:57 | NUR ---
Notified by SW that patient expressed concern to nurse on information requesting upon discharge to schedule a Dexa Scan for Sarcopenia that had been given to the patient during her geriatric assessment. Confirmed with ASSOCIATE DIRECTOR OF NURSING with Geriatrics service that she had indeed discussed this initially with patient, but in light of the patients concerns and further questions, the ASSOCIATE DIRECTOR OF NURSING stated she would come talk to the patient in the AM of the . Told ASSOCIATE DIRECTOR OF NURSING I would go and speak with the patient to which the ASSOCIATE DIRECTOR OF NURSING asked that I convey to the patient "not to be alarmed" and reiterate the ASSOCIATE DIRECTOR OF NURSING will be in to answer all questions along with further explanation in the AM. Notified the SW who has notified the nurse of above .
--- NOTE | 2019-12-28 18:26 | NUR ---
ASSESSMENT CHARTED. PT ALERT AND ORIENTED. VSS. HAD DIALYSIS THIS SHIFT. SCHEDULED PAIN MED GIVEN WITH PARTIAL RELIEF. UP IN THE CHAIR THIS SHIFT. NO CONCERNS AT THIS TIME. PT PROGRESSING WELL TOWRDS DISCHARGE GOAL.
[2019-12-28 20:13] VITALS: BP 128/57
--- NOTE | 2019-12-29 02:24 | NUR ---
ASSUMED CARE OF PATIENT AT 1900. PATIENT C/O SHOULDER AND BACK PAIN. ADMINISTERED SCHEDULED TRAMADOL ORDERED. TRAMADOL PARTIALLY EFFECTIVE AND PATIENT REQUESTED PRN OXY/APAP. PATIENT REPORTED VOMITING AT APPROXIMATELY 2330. ADMINISTERED PRN ZOFRAN. PATIENT STATED "SHE THINKS THEY ARE FROM BREATHING [place]." WILL CONTINUE TO MONITOR.
[2019-12-29 04:50] VITALS: BP 137/59
[2019-12-29 07:55] VITALS: BP 116/66
[2019-12-29] MEDS ORDERED: VOLTAREN GEL 1100 G1 TOP (11:02)
[2019-12-29] MEDS ORDERED: TRAMADOL 50 MG50 MG PO (11:02)
[2019-12-29] MEDS ORDERED: ACETAMINOPHEN325 M1 PO (11:02)
[2019-12-29] MEDS ORDERED: LIDOPATCH1 EACH TRANSDERM (11:02)
--- NOTE | 2019-12-29 11:04 | HC ---
[facility] [place] [address] CONSULTATION Name: ALBERTO BARBOZA Room #: 208-P ADM IN M.R.#: [id number] Admission: 12/26/19 Attend Phys: Jerad Griffith MD Discharge: Date of : 54 Report #: [id number] THIS REPORT FOR: cc: JOVI WALTER MD Physician not on staff Daniel Valenzuela MD ~ CC: JOVI Griffith Physician staff DATE OF SERVICE: 12/28/2019 CHIEF COMPLAINT: Ulceration to the right great toe. HISTORY OF PRESENT ILLNESS: This is a 69-year-old female patient with a history of end-stage renal disease, requiring dialysis as well as peripheral vascular disease, has presented to the Emergency Department and admitted to the hospital with shortness of breath. She is noted to have ulceration on her right great toe and I have been asked to see her with regard to wound care issues. She notes that she has had some vascular surgical procedures in the past. She is not specifically aware of the most recent surgery or intervention on the right side. She has a prior left above-knee amputation and is concerned with loss of her right limb. The patient denies any pain in her foot at this time. PAST MEDICAL HISTORY: Positive for end-stage renal disease, requiring hemodialysis. She has coronary artery disease, status post CABG in 1998, hypertension, peripheral vascular disease, left above-knee amputation, congestive heart failure, diabetes mellitus type 2. SOCIAL HISTORY: The patient is a prior smoker. No alcohol use. FAMILY HISTORY: Noncontributory. MEDICATIONS: Include torsemide, Humalog, Lantus, Colace, Percocet, Lipitor, MiraLax and Plavix. ALLERGIES: No known drug allergies. REVIEW OF SYSTEMS: CONSTITUTIONAL: The patient denies fever, chills or weight loss. NEUROLOGICAL: The patient denies focal weakness. EYES: The patient denies any visual changes, redness or drainage. ENT: The patient denies earache, nasal drainage or sore throat. CARDIOVASCULAR: The patient denies chest pain or palpitations. PULMONARY: The patient does complain of cough and shortness of breath. Denies sputum production or hemoptysis. [facility] [address] [place] [address] CONSULTATION Name: ALBERTO BARBOZA Room #: 208-P ADM IN M.R.#: [id number] Admission: 12/26/19 Attend Phys: Jerad Griffith MD Discharge: Date of : 54 Report #: [id number] GASTROINTESTINAL: The patient denies nausea, vomiting, diarrhea or abdominal pain. ORTHOPEDIC: The patient is aware of the prior above-knee amputation on the left side as well as ulceration on her right great toe. Other systems in a 14-point review of systems are negative. PHYSICAL EXAMINATION: VITAL SIGNS: At this time include temperature 37.0, pulse 86, respiratory rate of 17, blood pressure 140/57. GENERAL: This is a chronically ill-appearing female patient who appears to be in minimal distress. She is currently on dialysis. HEENT: Head normocephalic. Nose and throat clear. NECK: Supple. LUNGS: Diminished. HEART: Regular. ABDOMEN: Soft. Bowel sounds present. EXTREMITIES: She has a previously healed left above-knee amputation on the left side. Right foot demonstrates dry stable eschar on the plantar aspect of the great toe involving the proximal phalanx and into the MTP region. There is no infection, no odor, no separation. A small eschar on the second toe is noted as well. NEUROLOGIC: The patient is alert, oriented and appropriate. LABORATORY STUDIES: Include sodium 140, potassium 4.4, chloride 101, CO2 of 29, BUN 22, creatinine 4.4, glucose of 95. CLINICAL IMPRESSION: 1. Vascular ulceration to the right great toe and right second toe. 2. Diabetes mellitus. 3. Peripheral vascular disease, status post prior vascular bypass. 4. Coronary artery disease. 5. Hypertension. 6. End-stage renal disease, requiring hemodialysis. 7. Mild protein-calorie malnutrition with albumin 3.1. RECOMMENDATIONS: At this point in time, we will recommend checking an arterial Doppler and may need Interventional Radiology to review with us as to whether any intervention is required. She has dry stable eschar on the right first and second toes and with her vascular disease, diabetes and end-stage renal disease, she is at high risk for limb loss due to nonhealing. At this point in time, I think we will take a very conservative approach, toe is not infected, we will paint with Betadine and leave dry. I do not believe that debridement would be in her best interest presently. She will continue with medical therapy while here in the hospital. [address] [address] CONSULTATION Name: ALBERTO BARBOZA Room #: 208-P ADM IN M.R.#: [id number] Admission: 12/26/19 Attend Phys: Jerad Griffith MD Discharge: Date of : 54 Report #: [id number] I do appreciate being asked to see her in consultation. <ELECTRONICALLY SIGNED> By: Daniel Valenzuela MD 12/29/19 1104 1035 1100 Daniel Valenzuela MD /nt
[2019-12-29 11:50] VITALS: BP 116/66
[2019-12-29 11:55] VITALS: BP 145/75
--- NOTE | 2019-12-29 12:34 | NUR ---
PT DISCHARGING TODAY TO HOME WITH PT ON SERVICE WITH [facility] FAXED DC ORDERS/SUMMARY SPOKE WITH INTAKE THEY RECEIVED ORDERS AND WILL SCHEDULE VISITS WITH PT. ALSO FAXED DC ORDERS/SUMMARY TO KRISTIN SMITH RECEIVED CONFIRMATION.
[2019-12-29 15:55] VITALS: BP 120/57
--- NOTE | 2019-12-29 16:24 | NUR ---
Plan dc today however patient complaining of nausea/light headed. Discussed post acute care and patient refuses. Left [facility] medicare list. Called [facility] Felicia his HH Rn. She reports patient in June went to [facility]. She befriended friends at facility. All of COVID. Patient is extremely fearfull. Sp with patient again and alerted [facility] nearby is COVID free however patient cont with no plan for post acute care. Felicia sp with patient and she is going to think about it and may reconsider post acute Care. Felicia [phone] patient has caregivers through [facility] 2 hours in am MWF and 4hours on T, TH. She reports when they leave she does all adls on her own. Plan home with HH or possible skilled.
--- NOTE | 2019-12-29 18:08 | NUR ---
ASSUMED PATIENT CARE AT 0700. A/O X4. NAUSEA AND VOMIT IN AM. PATIENT FEEL TO0 WEAK TO GO HOME. SW GIVE PATIENT A LIST OF SNF. SLOWLY TOWARDS POC GOALS.
--- NOTE | 2019-12-29 18:32 | HC ---
[facility] [place] [address] CONSULTATION Name: ALBERTO BARBOZA Room #: 208-P ADM IN M.R.#: [id number] Admission: 12/26/19 Attend Phys: Jerad Griffith MD Discharge: Date of : 54 Report #: [id number] THIS REPORT FOR: cc: JOVI WALTER MD Physician not on staff Heena Martini MD ~ CC: JOVI Arango Physician staff REASON FOR THE CONSULTATION: End-stage renal disease. REASON FOR THE PRESENTATION: Shortness of breath. HISTORY OF PRESENT ILLNESS: This is a 69-year-old with past medical history of end-stage renal disease, maintained on hemodialysis every Thursday, Thursday and Thursday. She went to her dialysis yesterday and had about 3 kilos of fluid removed. She continued to have some shortness of breath and was supposed to visit with the dialysis unit today for an extra treatment today. Her home health nursing provider advised her to come to the Emergency Room where she was found to have some pulmonary venous congestion and was admitted for further evaluation and management. From the renal perspective, as stated above, the patient is maintained on hemodialysis for the last few years. She suffered from diabetes mellitus and hypertension with peripheral vascular disease and had all complications related to those issues. PAST MEDICAL HISTORY: 1. End-stage renal disease. 2. Hypertension. 3. Diabetes mellitus. 4. Hyperlipidemia. 5. Peripheral vascular disease. 6. Coronary artery disease. 7. Status post left above-knee amputation. 8. Fem-pop bypass and CABG. SOCIAL HISTORY: No drug or alcohol abuse. FAMILY HISTORY: Significant for hypertension and diabetes mellitus. ALLERGIES: None. REVIEW OF SYSTEMS: GENERAL: No fever or chills. CARDIOVASCULAR: No chest pain, but significant dyspnea on exertion. PULMONARY: No cough or hemoptysis, but significant dyspnea on exertion. GASTROINTESTINAL: No nausea or vomiting. [facility] [address] [place] [address] CONSULTATION Name: ALBERTO BARBOZA Room #: 208-P [facility] IN [place].#: [id number] Admission: 12/26/19 Attend Phys: Jerad Griffith MD Discharge: Date of : 54 Report #: [id number] MUSCULOSKELETAL: Occasional shoulder pain. MEDICATIONS: 1. Plavix. 2. Atorvastatin. 3. Isosorbide mononitrate. 4. Aspirin. 5. Lispro insulin. 6. Lantus insulin. PHYSICAL EXAMINATION: GENERAL: Alert, oriented, in no apparent distress. VITAL SIGNS: Temperature 36.7, pulse rate 62, respiratory rate 16, blood pressure 150/69. HEAD AND NECK: No jugular venous distention. CHEST: Decreased air entry bilaterally, with crackles. CARDIOVASCULAR: No rub. ABDOMEN: Soft, nontender. EXTREMITIES: Lower extremities above-knee amputation on the left side. LABORATORY VALUES: Hemoglobin 11.9. Sodium 140, potassium 4.1, creatinine 5, calcium 7.8. Chest x-ray consistent with pulmonary vascular congestions and pulmonary edema. ASSESSMENT, IMPRESSION, PLAN: 1. End-stage renal disease. 2. Pulmonary edema. 3. Diabetes mellitus. 4. Hypertension. 5. Hemodialysis will be arranged for the patient for an extra treatment today. She will be due for another dialysis session tomorrow. 6. Resume blood pressure medication. 7. Resume blood sugar medication. 8. Counseled about compliance with salt and fluid restriction. <ELECTRONICALLY SIGNED> By: Heena Martini MD 12/29/19 1832 [id number] [id number] Heena Martini MD /nt
[2019-12-29 19:49] VITALS: BP 130/53
[2019-12-30 04:45] VITALS: BP 120/56
--- NOTE | 2019-12-30 05:28 | NUR ---
assumed pt care at 1900, pt is awake, alert and oriented, up in the chair, sr on the monitor, assessments as charted, pain medicine given as per schedule, denies nausea and vomiting, no acute distress noted, will continue to monitor
[2019-12-30 08:00] VITALS: BP 181/87
[2019-12-30 09:32] LABS: HEMATOCRIT 41.3 % (37.0-47.0); HEMOGLOBIN 13.5 gm/dL (12.0-15.0); MCH 31.8 pg (26.0-34.0); MCHC 32.5 g/dL (28.0-37.0); MCV 97.7 fL (80.0-100.0); RBC 4.23 mil/uL (4.20-5.00); RDW 15.2 % (10.5-14.5); WBC 9.3 thou/uL (4.0-11.0)
[2019-12-30 11:00] VITALS: BP 126/44
[2019-12-30 13:35] LABS: CALCIUM 9.1 mg/dL (8.5-10.1); CREATININE 2.9 mg/dL (0.6-1.0); MAGNESIUM 1.9 mg/dL (1.8-2.4)
--- NOTE | 2019-12-30 16:06 | NUR ---
No dc anticipated this weekend. Pt dialyzing today and had KUB with ileus. Unable to reach the pt this afternoon to futr discuss snf stay vs home with hh. Dc media planner / buyer to f/u with [facility] as referral was faxed yesterday afternoon. Pt would need ins auth for snf stay if accepted and agreeable. Will f/u with all parties Thursday. PT/OT working with the pt.
[2019-12-30 17:03] VITALS: BP 104/43
--- NOTE | 2019-12-30 20:10 | NUR ---
RECEIVED PT'S CARE AROUND 0720; PT. ON BED; ON DIALYSIS; ALERT; DURING AM ASSESSMENT PT. AOX4; C/O BACK PAIN; AM MEDICATIONS GIVEN LATE; AFTER DIALYSIS; C/O ABDOMINAL DISTENTION & EARLY NAUSEA & VOMITING; PHYSICIAN NOTIFIED; ORDERS ON PLACED; SUPPOSITORY GIVEN WITH AM MEDICATIONS; EDUCATED ABOUT IF NOT ABLE TO HAVE BM MIGHT NEED ENEMA; ST. UNDERSTANDING; CLOSE TO 1400 PT. ABLE TO HAVE SMALL-MEDIUM BM; PER NURSE AID REPORT; HARD MICHELLE SHAPE; EDUCATED ABOUT THE IMPORTANCE OF ENEMA DUE TO KUB SHOWED CONSTIPATION; REFUSED IT; AFTER DIALYSIS BACK TO CHAIR; PER MISCELLANIUMS NOTES PT. NEEDS TO BE UP ON THE CHAIR DURING THE DAY; DURING THE STAY PT. RATHER TO STAY ON THE CHAIR DURING THE DAY & NIGHT; DURING THE EVENING BS ON THE 50s; MILK GIVEN; REFUSED DINNER; EDUCATED ABOUT THE IMPORTANCE OF EATING; ICE CREAM GIVEN; RE-ASSESSED BS ON THE 100s; ASSESSMENT CHARGED; FOLLOWING POC; PASSED ON REPORT;
[2019-12-30 20:50] VITALS: BP 126/52
[2019-12-31 04:57] VITALS: BP 122/55
--- NOTE | 2019-12-31 05:46 | NUR ---
assumed pt care at the change of shift, pt is awake, alert and oriented, pleasant, sr on the monitor, denies nausea and vomiting, medications given as per mar, denies pain, or sob, denies chest pain, stayed in the chair overnight, no acute distress noted, will continue to monitor
[2019-12-31 08:00] VITALS: BP 119/64
[2019-12-31 12:00] VITALS: BP 117/59
[2019-12-31 17:00] VITALS: BP 157/66
--- NOTE | 2019-12-31 19:29 | NUR ---
ASSUMED CARE AT SHIFT CHANGE, ASSESSMENT DOCUMENTED,BP SOFT, AND OTHE VSS. Q2 POSITIONED FOR COMFORT, AND MEDICATED FOR GENERALIZED PAIN. AND WILL CONTINUE WITH POC.
--- NOTE | 2019-12-31 19:35 | NUR ---
ASSUMED CARE AT SHIFT CHANGE, AND ASSESSMENT DOCUMENTED. UP IN THE CHAIR MOST OF THE SHIFT. S/W ENEMA GIVEN AND RESULTS YET. POOR APPETITE AND INSULIN HELD PER PROTOCOL. WILL CONTINUE TO MONITOR PATIENT.
[2019-12-31 20:18] VITALS: BP 108/53
[2020-01-01 04:00] VITALS: BP 108/47
--- NOTE | 2020-01-01 04:07 | NUR ---
assumed pt care at the change of shift, pt is awake, alert and orientedx4, sr/bbb, denies pain or sob, denies nausea and vomiting, held insulin due to poor appetite, no bm tonight, slept on the chair overnight, no acute distress noted, will continue to monitor
[2020-01-01 07:55] VITALS: BP 118/62
[2020-01-01 11:26] VITALS: BP 119/42
--- NOTE | 2020-01-01 15:00 | NUR ---
ASSUMED CARE AT SHIFT, ALERT AND ORIENTED X4. VSS AND SR ON THE MONITOR.DR ALFRED NOTIFIED ABOUT THE PATIENT NOT HAVING A BM AFTER ENEMA YESTERDAY. DISCAHRGE AND MEDICATION INSTRUCTION GIVEN.SPOKE WITH [facility] TO ARRANGE FOR W/C VAN, AND PATIENT WILL BE PICKED UP AT 1700.
--- NOTE | 2020-01-02 16:04 | NUR ---
PT DISCHARGED TO HOME WITH [facility] HH ON SUNDAY 12/31 FAXED DC ORDERS/SUMMARY RECEIVED CONFIRMATION THEY WILL NOTIFY PT TO ARRANGE VISITS.
== END 2020-01-01 18:07 | disposition home health service (06) | DRG 189 ==
LOC: ER 18:27 → EROBS 20:16 → 2N 20:16
PROVIDERS: Emergency Medicine; Nurse Practitioner Family; ADMIT Internal Medicine; ATTEND Internal Medicine
PROC: 5A1D70Z Performance of Urinary Filtration, Intermittent, Less than 6 Hours Per Day (ICD-10-PCS; principal; 2019-12-27)
PROC: 5A1D70Z Performance of Urinary Filtration, Intermittent, Less than 6 Hours Per Day (ICD-10-PCS; 2019-12-28)
PROC: 5A1D70Z Performance of Urinary Filtration, Intermittent, Less than 6 Hours Per Day (ICD-10-PCS; 2019-12-30)
DX: J96.01 Acute respiratory failure with hypoxia (principal); N18.6 End stage renal disease; I13.2 Hypertensive heart and chronic kidney disease with heart failure and with stage 5 chronic kidney disease, or end stage renal disease; J81.1 Chronic pulmonary edema; K56.7 Ileus, unspecified; E44.1 Mild protein-calorie malnutrition; I42.9 Cardiomyopathy, unspecified; I50.22 Chronic systolic (congestive) heart failure; E11.22 Type 2 diabetes mellitus with diabetic chronic kidney disease; M25.511 Pain in right shoulder; E11.51 Type 2 diabetes mellitus with diabetic peripheral angiopathy without gangrene; E78.5 Hyperlipidemia, unspecified; I25.10 Atherosclerotic heart disease of native coronary artery without angina pectoris; K21.9 Gastro-esophageal reflux disease without esophagitis; G89.29 Other chronic pain; R63.4 Abnormal weight loss; E11.621 Type 2 diabetes mellitus with foot ulcer; E78.00 Pure hypercholesterolemia, unspecified; K59.00 Constipation, unspecified; M19.90 Unspecified osteoarthritis, unspecified site; E66.01 Morbid (severe) obesity due to excess calories; Z91.19 Patient's noncompliance with other medical treatment and regimen; Z99.2 Dependence on renal dialysis; Z68.36 Body mass index [BMI] 36.0-36.9, adult; Z95.1 Presence of aortocoronary bypass graft; Z95.5 Presence of coronary angioplasty implant and graft; Z90.49 Acquired absence of other specified parts of digestive tract; Z87.891 Personal history of nicotine dependence; Z79.4 Long term (current) use of insulin; Z79.82 Long term (current) use of aspirin; Z79.899 Other long term (current) drug therapy; Z89.612 Acquired absence of left leg above knee
CPT/HCPCS: 10081; 32100

== ENCOUNTER → 2020-01-19 | Outpatient (CLI) | payer OTHER ==
[~2020-01-19] MED LIST changes: +ACETAMINOPHEN325 M1 PO; +LIDOPATCH1 EACH TRANSDERM; +TORSEMIDE20 MG PO; +TRAMADOL 50 MG50 MG PO; +VOLTAREN GEL 1100 G1 TOP
== END ==
LOC: NUC 08:53
PROVIDERS: ATTEND Nurse Practitioner Family
DX: M62.84 Sarcopenia (principal)